=== PATIENT | male | born 1960 | race African-American/Black ===

== ENCOUNTER → 2017-11-11 | Outpatient (CLI) | payer OTHER ==
[2017-11-11] MEDS: GADOBUTROL 7.5 MMOL/7.5 ML VIAL IV (13:23)
== END | disposition home or self-care (01) ==
LOC: MRI 12:31
DX: R22.0 Localized swelling, mass and lump, head (principal)
CPT/HCPCS: 70553; A9585

== ENCOUNTER → 2017-11-22 | Day surgery (SDC) | payer OTHER ==
[~2017-11-22] MED LIST: LIDOCAINE 2%/EPI 1:100,000 20 ML VIAL. IJ
[2017-11-22] MEDS: LIDOCAINE 1%/EPI 1:100,000 20 ML VIAL. INJ (10:50)
== END ==
LOC: SURG 08:27
DX: D17.0 Benign lipomatous neoplasm of skin and subcutaneous tissue of head, face and neck (principal); I10 Essential (primary) hypertension; J44.9 Chronic obstructive pulmonary disease, unspecified; Z90.49 Acquired absence of other specified parts of digestive tract; F32.9 Major depressive disorder, single episode, unspecified; Z86.19 Personal history of other infectious and parasitic diseases
CPT/HCPCS: 21014; 88304; J3490

== ENCOUNTER 2019-04-12 08:14 | Emergency (ER) | payer MEDICAID, OTHER ==
[~2019-04-12] VITALS: Ht 180.3 cm; Wt 63.5 kg
[~2019-04-12 08:14] MED LIST changes: +ALPR0.25 PO; +AMLO10TA8 PO; -LIDOCAINE 2%/EPI 1:100,000 20 ML VIAL. IJ; +LOSA-73 PO; +METO-239 PO; +OMEP20CA10 PO
[2019-04-12 08:26] VITALS: BP 136/73
--- NOTE | 2019-04-12 09:38 | RAD ---
VENOUS LOWER EXTREMITY RIGHT History: Right lower extremity pain. Comparison: None. Discussion: Multiple longitudinal and transverse high resolution real-time images of the venous system of right lower extremity were obtained with color and Doppler sampling. The common femoral, superficial femoral, popliteal and proximal calf veins are all patent and demonstrate normal flow and compressibility. Normal respiratory phasicity and augmentation is present. Impression: 1. No evidence of deep vein thrombosis within the right lower extremity. Electronically signed by: Andrew Elias DO (04/12/2019 9:35 AM) [email or web address]
--- NOTE | 2019-04-12 09:44 | RAD ---
ARTERIAL STUDY LOWER EXT RIGHT Indication: Right lower extremity pain. History of clot. Comparison: None. Procedure: Real-time grayscale, color flow Doppler, and Doppler spectral waveform analysis of the arterial system of the lower extremity is performed. Findings: Monophasic waveform within the right common femoral artery with extensive atheromatous plaque. Patent right deep femoral artery. Occlusion of the proximal right superficial femoral artery with extensive atheromatous plaque. There is reconstitution of the mid superficial femoral artery with tardus parvus waveform. The tardus parvus waveform extends throughout the right distal lower extremity. Distal right superficial femoral artery, popliteal artery, posterior tibial, peroneal, anterior tibial and dorsalis pedis arteries are patent with decreased velocity. IMPRESSION: 1. Right proximal superficial femoral artery occlusion with reconstitution of the mid SFA. 2. Tardus parvus waveform with decreased velocity throughout the mid SFA and distal right lower extremity. 3. Extensive atheromatous plaque within the right common femoral and superficial femoral arteries. FOR INTERNAL CODING PURPOSES Critical result: Findings discussed with RYAN KNIGHT at 04/12/2019 9:41 AM. RESULT CODE: (C) Electronically signed by: Andrew Elias DO (04/12/2019 9:41 AM) [email or web address]
[2019-04-12] MEDS ORDERED: HYDROcodone/APAP 5/325MG 1 TAB TABLET PO ONE (09:45)
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
[2019-04-12] MEDS ORDERED: HYDR-3164 PO (10:08)
== END 2019-04-12 10:54 | disposition home or self-care (01) ==
LOC: ER 08:14
DX: I73.9 Peripheral vascular disease, unspecified (principal); I10 Essential (primary) hypertension; J45.909 Unspecified asthma, uncomplicated; F17.210 Nicotine dependence, cigarettes, uncomplicated
CPT/HCPCS: 93923; 93971; 99284-25

== ENCOUNTER 2019-07-28 11:54 | Emergency (ER) | payer MEDICAID ==
[~2019-07-28] VITALS: Ht 180.3 cm; Wt 65.8 kg
[~2019-07-28 11:54] MED LIST changes: +HYDR-3164 PO; +OMEP-229 PO; -OMEP20CA10 PO
[2019-07-28 12:40] VITALS: BP 134/78
[2019-07-28] MEDS ORDERED: HYDROcodone/APAP 5/325MG 1 TAB TABLET PO ONE (13:30)
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
[2019-07-28 13:55] LABS: BILIRUBIN,URINE NEGATIVE (NEG); CLARITY,URINE CLEAR; COLOR,URINE YELLOW; NITRITE,URINE NEGATIVE (NEG); PH,URINE 6.5; PROTEIN,URINE NEGATIVE (NEG-TRACE)
[2019-07-28 14:23] LABS: BACTERIA,URINE 0 /HPF (0-FEW); RBC,URINE 0 /HPF (0-2); SQUAMOUS EPITHELIAL CELL,UR OCC /LPF
--- NOTE | 2019-07-28 14:30 | RAD ---
LUMBAR SPINE MIN 4V History: Pain, fall Comparison: Lumbar spine MRI October 26, 2013 Findings: 5 views of the lumbar spine are submitted. Lumbar vertebral body stature and AP alignment are submitted. No acute osseous abnormality is identified by radiographs. There is again more advanced degenerative disc disease at L4-5 and L5-S1. There is multilevel lumbar spondylosis. No acute osseous abnormality is identified by radiographs. There is atherosclerotic calcification of the abdominal aorta. Impression: 1. No acute osseous abnormality is identified by radiographs. There is degenerative disc disease greatest L4-5 and L5-S1, also multilevel spondylosis. Electronically signed by: Parvez Ruiz MD (07/28/2019 2:26 PM) [facility]
--- NOTE | 2019-07-28 14:51 | RAD ---
Three-view right foot study Clinical indications: Pain after fall FINDINGS: There is a nondisplaced transverse fracture of the base of the fifth metatarsal bone. No dislocation or lytic process is seen. IMPRESSION: Acute fracture base of fifth metatarsal bone. Electronically signed by: Everett Polk MD (07/28/2019 2:48 PM) [facility]
[2019-07-28] MEDS ORDERED: METH4TAB2 PO (14:55)
[2019-07-28] MEDS ORDERED: HYDR-3164 PO (14:55)
[2019-07-28] MEDS ORDERED: CEPH-264 PO (14:55)
== END 2019-07-28 15:15 | disposition home or self-care (01) ==
LOC: ER 11:54
DX: S92.354A Nondisplaced fracture of fifth metatarsal bone, right foot, initial encounter for closed fracture (principal); S90.31XA Contusion of right foot, initial encounter; N39.0 Urinary tract infection, site not specified; M54.41 Lumbago with sciatica, right side; J45.909 Unspecified asthma, uncomplicated; I10 Essential (primary) hypertension; F17.200 Nicotine dependence, unspecified, uncomplicated; Z90.49 Acquired absence of other specified parts of digestive tract; W10.8XXA Fall (on) (from) other stairs and steps, initial encounter; Y93.89 Activity, other specified; Y92.89 Other specified places as the place of occurrence of the external cause; Y99.8 Other external cause status
CPT/HCPCS: 72110; 73630; 81001; 87086; 99285-25

== ENCOUNTER 2019-08-12 03:44 | Emergency (ER) | payer MEDICAID ==
[~2019-08-12] VITALS: Ht 177.8 cm; Wt 77.1 kg
[~2019-08-12 03:44] MED LIST changes: +CEPH-264 PO; +METH4TAB2 PO; -OMEP-229 PO; +OMEP20CA16 PO
[2019-08-12 04:34] LABS: BASO % 1 % (0-3); EOS # 0.2 x10^3/uL (0.0-0.7); EOS % 2 % (0-3); HEMATOCRIT 37.4 % (39.0-53.0); HEMOGLOBIN 12.6 g/dL (13.0-17.5); LYMPH # 3.2 x10^3/uL (1.0-4.8); LYMPH % 42 % (24-48); MEAN CORPUSCULAR HEMOGLOBIN 32 pg (25-35); MEAN CORPUSCULAR HGB CONC 34 g/dL (31-37); MEAN CORPUSCULAR VOLUME 93 fL (79-100); MONO # 0.7 x10^3/uL (0.0-1.1); MONO % 10 % (0-9); NEUT # 3.5 x10^3/uL (1.8-7.7); NEUT % 46 % (31-73); PLATELET COUNT 196 x10^3/uL (140-400); RED CELL DISTRIBUTION WIDTH 14.8 % (11.5-14.5); WHITE BLOOD COUNT 7.7 x10^3/uL (4.0-11.0)
[2019-08-12 04:43] LABS: CALCIUM 8.8 mg/dL (8.5-10.1); CREATININE 1.1 mg/dL (0.7-1.3); GFR 82.3; POTASSIUM 3.7 mmol/L (3.5-5.1)
[2019-08-12 04:48] LABS: ALBUMIN 3.3 g/dL (3.4-5.0); MAGNESIUM 1.8 mg/dL (1.8-2.4); TOTAL BILIRUBIN 0.7 mg/dL (0.2-1.0); TOTAL PROTEIN 6.7 g/dL (6.4-8.2)
[2019-08-12] MEDS ORDERED: methylPREDNISolone SOD SUCC PF 125 MG/2 ML VIAL. IV ONE (05:00)
[2019-08-12] MEDS ORDERED: IPRATRPIUM/ALBUTEROL 0.5/2.5MG 3 ML NEBU. NEB ONE (05:00)
[2019-08-12 05:12] VITALS: BP 119/68
[2019-08-12] MEDS ORDERED: CEFD300C PO (05:35)
[2019-08-12] MEDS ORDERED: ALBU2.5V8 IH (05:35)
[2019-08-12] MEDS ORDERED: PRED20TA PO (05:35)
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
--- NOTE | 2019-08-12 07:00 | RAD ---
CHEST AP ONLY Clinical History: Dyspnea and cough Technique: AP view of the chest was obtained at 08/12/2019 4:01 AM. Comparison: None. Findings: The cardiomediastinal silhouette is normal. The pulmonary vasculature is normal. There is patchy opacity in the lung bases including vague curly B lines on the right. Impression: Mild basal infiltrates could be CHF or atypical pneumonia. Electronically signed by: Konrad Austin III, MD (08/12/2019 6:57 AM) [email or web address]
--- NOTE | 2019-08-14 06:49 | EKG ---
[facility] [address] [place] [address] Test Date: 2019-08-12 Test Time: 05:18:38 Pat Name: CANDY CERVANTES Department: Room: Gender: M Truant Officer: : 1960 Requested By: SAIDA GAN Order Number: [id number] Reading MD: Measurements Intervals [place] Rate: 63 P: 90 WA: 218 QRS: -70 QRSD: 94 T: 42 QT: 398 QTc: 410 Interpretive Statements SINUS RHYTHM ABNORMAL LEFT AXIS DEVIATION R-S TRANSITION ZONE IN V LEADS DISPLACED TO THE RIGHT LOW LIMB LEAD VOLTAGE LEFT ANTERIOR FASCICULAR BLOCK ABNORMAL ECG RI6.01 No previous ECG available for comparison
== END 2019-08-12 06:28 | disposition home or self-care (01) ==
LOC: ER 03:44
DX: J20.9 Acute bronchitis, unspecified (principal); J45.909 Unspecified asthma, uncomplicated; M19.90 Unspecified osteoarthritis, unspecified site; I10 Essential (primary) hypertension
CPT/HCPCS: 36415; 71045; 80053; 83735; 83880; 84484; 85025; 93005; 94640; 96374; 99285; J2930; J7620

== ENCOUNTER 2020-02-14 11:38 | Emergency (ER) | payer MEDICAID ==
[~2020-02-14 11:38] MED LIST changes: +ALBU2.5V8 IH; +CEFD300C PO; +PRED20TA PO
[2020-02-14] MEDS ORDERED: CYCL10TA2 PO (16:33)
[2020-02-14] MEDS ORDERED: NAPR-514 PO (16:33)
== END 2020-02-14 12:33 | disposition left against medical advice (07) ==
LOC: ER 11:38
DX: M54.5 Low back pain (principal); Z53.21 Procedure and treatment not carried out due to patient leaving prior to being seen by health care provider

== ENCOUNTER 2020-02-14 14:02 | Emergency (ER) | payer MEDICAID ==
[~2020-02-14] VITALS: Ht 180.3 cm; Wt 65.0 kg
[2020-02-14 14:14] VITALS: BP 168/81
[2020-02-14] MEDS ORDERED: ORPHENADRINE CITRATE 60 MG/2 ML VIAL. IV ONE (15:00)
[2020-02-14] MEDS ORDERED: KETOROLAC 60 MG/2 ML VIAL. IM ONE (15:00)
--- NOTE | 2020-02-14 15:38 | RAD ---
LUMBAR SPINE 2-3V History: Fall 3 days ago Comparison: July 28, 2019 Findings: 3 views of the lumbar spine are submitted. Lumbar vertebral body stature and AP alignment are maintained, unchanged kidney interval. There is again advanced degenerative disc disease L4-5 and L5-S1, to lesser degree L3-4 and L1-L2. There is facet degenerative change greater inferiorly of the lumbar spine. No convincing acute radiographic abnormality is identified. There is multilevel spondylosis. Impression: 1. No convincing acute osseous abnormality is identified by radiographs. 2. There is again degenerative disc disease greatest at L4-5 and L5-S1. Electronically signed by: Parvez Ruiz MD (02/14/2020 3:35 PM) [facility]
--- NOTE | 2020-02-14 15:38 | RAD ---
Left knee 3 views. HISTORY: Fall 3 days ago, history of patellar fracture 3 views were taken of the left knee. There is mild soft tissue swelling. An acute fracture is not identified. There is no joint effusion. IMPRESSION: 1. No acute fracture noted in the left knee. Electronically signed by: Freddie Vieira MD (02/14/2020 3:35 PM) [facility]
[2020-02-14] MEDS ORDERED: CYCL10TA2 PO (16:33)
[2020-02-14] MEDS ORDERED: NAPR-514 PO (16:33)
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
[2020-02-14] MEDS ORDERED: ORPHENADRINE CITRATE 60 MG/2 ML VIAL. IM ONE (16:45)
== END 2020-02-14 16:50 | disposition home or self-care (01) ==
LOC: ER 14:02
DX: M54.41 Lumbago with sciatica, right side (principal); M25.562 Pain in left knee; M19.90 Unspecified osteoarthritis, unspecified site; F32.9 Major depressive disorder, single episode, unspecified; I25.10 Atherosclerotic heart disease of native coronary artery without angina pectoris; E11.9 Type 2 diabetes mellitus without complications; F17.200 Nicotine dependence, unspecified, uncomplicated; Z90.49 Acquired absence of other specified parts of digestive tract; Z98.890 Other specified postprocedural states
CPT/HCPCS: 72100; 73562; 96372; 99284; J1885; J2360

== ENCOUNTER 2021-05-07 09:45 | Emergency (ER) | payer MEDICAID ==
[~2021-05-07] VITALS: Ht 180.3 cm; Wt 67.8 kg
[~2021-05-07 09:45] MED LIST changes: +AMLO-187 PO; -AMLO10TA8 PO; +CYCL10TA2 PO; +NAPR-514 PO
[2021-05-07 10:44] LABS: BASO # 0.1 x10^3/uL (0.0-0.2); BASO % 1 % (0-3); EOS # 0.1 x10^3/uL (0.0-0.7); EOS % 1 % (0-3); HEMATOCRIT 40.9 % (39.0-53.0); HEMOGLOBIN 13.9 g/dL (13.0-17.5); LYMPH # 2.4 x10^3/uL (1.0-4.8); LYMPH % 29 % (24-48); MEAN CORPUSCULAR HEMOGLOBIN 31 pg (25-35); MEAN CORPUSCULAR HGB CONC 34 g/dL (31-37); MEAN CORPUSCULAR VOLUME 92 fL (79-100); MONO # 1.1 x10^3/uL (0.0-1.1); MONO % 13 % (0-9); NEUT # 4.8 x10^3/uL (1.8-7.7); NEUT % 57 % (31-73); PLATELET COUNT 181 x10^3/uL (140-400); RED BLOOD COUNT 4.46 x10^6/uL (4.30-5.70); RED CELL DISTRIBUTION WIDTH 15.4 % (11.5-14.5); WHITE BLOOD COUNT 8.4 x10^3/uL (4.0-11.0)
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
[2021-05-07] MEDS ORDERED: IOHEXOL 300 MG/ML 100ML VIAL. IV ONE (11:00)
[2021-05-07] MEDS ORDERED: CONTRAST GIVEN. MC PRN (11:00)
[2021-05-07 11:03] LABS: CALCIUM 8.6 mg/dL (8.5-10.1); CREATININE 1.1 mg/dL (0.7-1.3); GFR 81.8; POTASSIUM 4.6 mmol/L (3.5-5.1)
[2021-05-07 11:05] LABS: BILIRUBIN,URINE NEGATIVE (NEG); CLARITY,URINE CLEAR; COLOR,URINE YELLOW; NITRITE,URINE NEGATIVE (NEG); PH,URINE 6.5 (<5.0-8.0); PROTEIN,URINE NEGATIVE (NEG-TRACE)
[2021-05-07 11:19] LABS: BACTERIA,URINE 0 /HPF (0-FEW); RBC,URINE 0 /HPF (0-2)
--- NOTE | 2021-05-07 12:22 | RAD ---
EXAMINATION: CT abdomen and pelvis with IV contrast. INDICATION:61 years, Male, lymphadenopathy. TECHNIQUE: Axial CT images of the abdomen and pelvis were obtained. Coronal and sagittal reformatted performed. COMPARISON: 12/13/2009. Exposure: One or more of the following individualized dose reduction techniques were utilized for thi s examination: 1. Automated exposure control 2. Adjustment of the mA and/or kV according to patient size 3. Use of iterative reconstruction technique. FINDINGS: LOWER CHEST: Trace right pleural effusion. Minimal bibasilar subsegmental atelectasis. ABDOMEN/PELVIS: Liver, pancreas, biliary ducts and right thyroid gland are unremarkable. Cholecystectomy. Coarse calc ifications in subcapsular spleen, unchanged. There is a 2.4 cm left adrenal nodule, stable to slightl y decreasing in size since 2009, most likely benign adenoma. No hydronephrosis or nephrolithiasis in either kidney. Subcentimeter hypodensity in the right kidney, too small to characterize. No bowel obstruction or wall thickening. Moderate amount of stool throughout the colon. Appendix is n ormal. Postsurgical changes of small bowel resection. Moderate aortoiliac atherosclerotic calcificati ons. No pneumoperitoneum or ascites. Multiple mildly enlarged left paraortic, right common and hydroponics grower al iliac lymph nodes. The largest left paraortic lymph node measures 1.3 cm in short axis. The larges t right pelvic lymph node measures 1.0 cm. Enlarged bilateral inguinal lymph nodes, the largest in th e left side measures 2.0 cm in short axis. Urinary bladder and prostate are unremarkable. MUSCULOSKELETAL: There is a 2.5 cm hypodense lesion with peripheral enhancement seen in the subcutaneous tissue of the left groin region, associated with extensive adjacent fat stranding. Multilevel degenerative changes in the spine, worst at L5-S1. IMPRESSION: 1. A 2.5 cm hypodense lesion with peripheral enhancement seen within the subcutaneous tissue of the l eft groin region, associated with extensive adjacent fat stranding. Differential includes abscess pippa tisha necrotic lymphadenopathy. Clinical correlation is advised and recommend further evaluation with u ltrasound-guided tissue sampling. 2. Multiple enlarged retroperitoneal, right pelvic and bilateral inguinal lymph nodes, etiology inclu carolyn reactive process versus metastasis of unknown primary. 3. Other chronic/incidental finding, as described above. Electronically signed by: Jose G Carlisle MD (05/07/2021 12:19 PM) [id number]
[2021-05-07 13:39] LABS: ALBUMIN 3.3 g/dL (3.4-5.0); DIRECT BILIRUBIN 0.1 mg/dL (0.0-0.2); TOTAL BILIRUBIN 0.4 mg/dL (0.2-1.0); TOTAL PROTEIN 7.1 g/dL (6.4-8.2)
--- NOTE | 2021-05-07 14:05 | RAD ---
STUDY: CT chest without contrast INDICATION: Pleural effusion. COMPARISON: Correlation is made to the same day CT abdomen/pelvis. TECHNIQUE: Helical CT imaging of the chest performed without the use of intravenous contrast. Sagitta l and coronal reformats were obtained. One or more of the following individualized dose reduction techniques were utilized for this examinat ion: 1. Automated exposure control 2. Adjustment of the mA and/or kV according to patient size 3. Use of iterative reconstruction technique. FINDINGS: Limited study without the use of intravenous contrast. Lungs: Emphysema. Subpleural groundglass densities at the inferior right lower lobe. There is a compo nent of mild volume loss at the lung bases. Trace amount of pleural fluid on the right. Mild pleural nodularity at a few locations best seen laterally at the right lower lobe on image 54 series 3 measur ing 1.9 cm AP by 0.7 cm transverse on this image. Flat nodular focus abutting the right hemidiaphragm on image 31 series 5 measuring 0.9 cm transverse. Tiny nodularity along the right minor fissure, johanne ge 44 series 3. No large nodule or mass. There is some debris within the trachea and bronchus interme dius. No central airway opacification. Vasculature: Scattered calcific atherosclerosis with coronary artery involvement. Nonaneurysmal aorta . Upper limits of normal main pulmonary artery caliber measuring just under 3 cm. Mediastinum/gonzalez: Individual discrimination of lymph nodes is made difficult without the use of contr ast. Mildly enlarged pretracheal lymph node on image 33 series 2 measuring 1 cm AP. There is the sugg estion of a 1.4 cm short axis subcarinal lymph node on image 39 series 2. No significant pericardial fluid. Neck/axilla/chest wall: Several pathologically enlarged left axillary/subpectoral lymph nodes the lar gest of which is on image 18 series 2 measuring 1.8 cm transverse by 2.2 cm AP. The largest right axi llary/subpectoral lymph node is seen beneath the pectoralis major on image 11 series 2 measuring 1.6 x 2.2 cm. It is difficult to delineate lymph nodes at the lower neck. Gynecomastia. Bones: No destructive osseous lesion scattered degenerative changes. There appears to be a component of central canal narrowing at T11-T12 mostly related to a disc bulge but not well characterized. Upper abdomen: Better evaluated on the same day CT abdomen/pelvis performed with contrast. IMPRESSION: 1. Bilateral axillary and subpectoral lymphadenopathy. There are few mildly enlarged mediastinal lym ph nodes as well. Pleural nodularity best seen at the right lower lung and trace pleural fluid on the right. No lung mass or large nodule to indicate a lung primary. Considerations includes metastatic d isease from a still uncertain primary or potentially lymphoma. 2. Small amount of debris within the trachea and bronchus intermedius. There is a component of atele ctasis at the lower lungs but mild aspiration is possible. 3. Emphysema and additional chronic observations described above. Electronically signed by: DEEPIKA LYLE MD (05/07/2021 2:03 PM) [facility]
[2021-05-07 14:59] VITALS: BP 170/95
== END 2021-05-07 15:01 | disposition home or self-care (01) ==
LOC: ER 09:45
DX: R59.0 Localized enlarged lymph nodes (principal); I10 Essential (primary) hypertension; F17.200 Nicotine dependence, unspecified, uncomplicated
CPT/HCPCS: 36415; 71250; 74177; 80048; 80076; 81001; 83615; 85025; 87086; 87491; 87591; 99285; Q9967

== ENCOUNTER → 2021-05-16 | Outpatient (CLI) | payer MEDICAID ==
[2021-05-07 14:59] VITALS: BP 170/95
[~2021-05-16] MED LIST changes: +GABA300C18 PO; +HYDR-2759 PO; +OMEP40CA7 PO
[2021-05-16 14:04] LABS: BASO # 0.1 x10^3/uL (0.0-0.2); BASO % 1 % (0-3); EOS # 0.1 x10^3/uL (0.0-0.7); EOS % 2 % (0-3); HEMATOCRIT 41.2 % (39.0-53.0); HEMOGLOBIN 13.7 g/dL (13.0-17.5); LYMPH # 2.7 x10^3/uL (1.0-4.8); LYMPH % 35 % (24-48); MEAN CORPUSCULAR HEMOGLOBIN 31 pg (25-35); MEAN CORPUSCULAR HGB CONC 33 g/dL (31-37); MEAN CORPUSCULAR VOLUME 92 fL (79-100); MONO # 0.7 x10^3/uL (0.0-1.1); MONO % 9 % (0-9); NEUT # 4.2 x10^3/uL (1.8-7.7); NEUT % 54 % (31-73); PLATELET COUNT 281 x10^3/uL (140-400); RED BLOOD COUNT 4.48 x10^6/uL (4.30-5.70); RED CELL DISTRIBUTION WIDTH 14.7 % (11.5-14.5); WHITE BLOOD COUNT 7.8 x10^3/uL (4.0-11.0)
[2021-05-17 15:11] LABS: KAPPA FREE 66.8 mg/L (3.3-19.4); LAMBDA FREE 37.2 mg/L (5.7-26.3)
[2021-05-19 16:20] LABS: ALBUM 3.4 g/dL (2.9-4.4); ALPHA 1 0.3 g/dL (0.0-0.4); ALPHA 2 1.1 g/dL (0.4-1.0); BETA 0.9 g/dL (0.7-1.3); GAMMA 1.6 g/dL (0.4-1.8); PROTEIN TOTAL 7.3 g/dL (6.0-8.5); SPEP AG RATIO 0.9 (0.7-1.7)
== END ==
LOC: ONCLAB 13:44
PROVIDERS: ATTEND Internal Medicine Hematology & Oncology
DX: R59.9 Enlarged lymph nodes, unspecified (principal)
CPT/HCPCS: 36415; 83520; 83615; 84165; 85025; 86703; 86704; 86706; 87340

== ENCOUNTER 2021-05-26 07:43 | Day surgery (SDC) | payer MEDICAID ==
[~2021-05-26] VITALS: Ht 180.3 cm; Wt 68.0 kg
[~2021-05-26 07:43] MED LIST changes: +BUPIVACAINE-EPI 0.5%-1:200000 MPF 30 ML VIAL. ONE; -HYDR-2759 PO; +HYDROmorphone 2 MG/ML VIAL IVP PRN; +IV RINGERS,LACTATED 1000ML 1,000 ML IV SCH; +MORPHINE SULFATE 2 MG/ML INJ. IVP PRN; +PROCHLORPERAZINE 10 MG/2 ML VIAL. IVP PRN; +fentaNYL PF VIAL 100 MCG/2 ML VIAL IVP PRN
[2021-05-26] MEDS ORDERED: ceFAZolin SODIUM IV Push 1 GM VIAL. IVP PRN (08:00)
[2021-05-26 08:15] VITALS: BP 159/84
[2021-05-26] MEDS ORDERED: fentaNYL PF VIAL 100 MCG/2 ML VIAL ONE (08:27)
[2021-05-26] MEDS ORDERED: DEXAMETHASONE SOD PHOS 20 MG/5 ML VIAL. ONE (08:27)
[2021-05-26] MEDS ORDERED: PROPOFOL 10 MG/ML (20ML) VIAL. IV ONE ×2 (08:27→09:27)
[2021-05-26] MEDS ORDERED: ONDANSETRON PF 4 MG/2 ML VIAL. ONE (08:27)
[2021-05-26] MEDS ORDERED: MIDAZOLAM HCL/PF 2 MG/2 ML VIAL. ONE (08:27)
[2021-05-26] MEDS ORDERED: FAMOTIDINE 20 MG/2 ML VIAL ONE (08:27)
[2021-05-26] MEDS ORDERED: BUPIVACAINE-EPI 0.5%-1:200000 MPF 30 ML VIAL. INJ ONE (09:29)
--- NOTE | 2021-05-26 09:58 | PDOC4 ---
Operative Note Operative Note Operative Note: Preoperative Diagnosis: Left inguinal lymphadenopathy Postoperative Diagnosis: Same Procedure: Left inguinal lymph node biopsy Surgeon: Florian Pararescue Craftsman: Ravi Wang [id number] Anesthesia: General EBL: 5 mL Specimen: Left inguinal lymph node to pathology Drains: None Complications: None Indication: The patient is a 61-year-old male who was referred with significant lymphadenopathy particularly in the left groin. The plan is to proceed with a lymph node biopsy to allow for definitive diagnosis. The risks of surgery were discussed which include bleeding, infection, pain, swelling, anesthetic risk, potential need for additional surgery procedure. He understands and would like to proceed. Description: The patient was taken to the operating room and placed supine on the operating table. General anesthesia was performed. The left groin was shaved and prepped with ChloraPrep and draped in a standard surgical manner. An i ncision was made directly overlying a sizable palpable inguinal lymph node. Cautery dissection was carried down into the subcutaneous tissues. The lymph node was readily mobilized with cautery from the surrounding subcutaneous structures. The lymph node was fully excised and sent fresh to pathology for evaluation. Hemostasis was achieved with cautery. No other abnormalities were id entified apart from remaining sites of adenopathy. The subcutaneous tissue was closed with 3-0 Vicryl. The skin was closed with 4-0 Monocryl and infiltrated with half percent Marcaine with epinephrine. Steri-Strips and a sterile dressing were applied. The patient tolerated the procedure well and was sent to the recovery room in stable condition. At the end of the case all counts were correct. HEAVEN ENRIQUEZ MD May 26, 2021 09:58
[2021-05-26] MEDS ORDERED: HYDR-2759 PO (10:01)
--- NOTE | 2021-05-26 10:02 | DISCH ---
DISCHARGE INSTRUCTIONS Condition on Discharge Condition on Discharge: Stable Activity After Discharge Activity Instructions for Disc: Resume previous activity Driving Instructions after Dis: Other, see below (no driving while taking pain meds) Wound Incision Care Wound/Incision Care: Other, see below (keep dressing clean and dry X 72 hours, may then remove and shower) Follow-Up Follow up with: Dr Enriquez in office in 1-2 weeks, call for appointment [phone] HEAVEN ENRIQUEZ MD May 26, 2021 10:02
[2021-05-26] MEDS ORDERED: HYDROcodone/APAP 5/325MG 1 TAB TABLET PO ONE (10:15)
[2021-05-26 10:39] VITALS: BP 129/69
--- NOTE | 2021-05-30 10:57 | PATHOLOGY ---
[facility] Accession Number: [id number] . 01 Material submitted: . lymph node - LEFT INGUINAL LYMPH NODE FS. Modifiers: left . 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 SEE COMMENT. (JPM:mm; 05/28/2021) [facility] 05/29/2021 1444 Local . 02 Comment: Sections of the left inguinal lymph node biopsy reveal three lymph nodes with focal attached perinodal soft tissues. The two largest lymph nodes show infarction with perinodal fibrosis and chronic inflammation. There is effacement of the yousuf architecture of the smallest lymph node. Sections of this lymph node reveal a proliferation of atypical large lymphoid cells having a somewhat nodular architecture within a sclerotic background. The atypical large lymphoid cells have modest amounts of pale cytoplasm, and possess rounded to ovoid somewhat vesicular nuclei containing one or more nucleoli. There are scattered admixed small lymphocytes having rounded to slightly irregular nuclei. There are mitotic figures present. There is a small focus of yousuf infarction. There are focal nodular aggregates of atypical large lymphoid cells within perinodal soft tissues with a focus of possible angioinvasion. . A portion of the smallest lymph node submitted for flow cytometric analysis has a viability of 68.5%. Lymphocytes comprise 93.4% of total cells. T-cells comprise 94% of lymphoid cells and show a CD4/CD8 ratio of 10.0. T-cells show no antigen aberrancy. NK-cells comprise 2% of lymphoid cells. Mature B-cells comprise 2% of lymphoid cells and are insufficient in number to evaluate for clonality. This hypocellular specimen with decreased viability is suboptimal for lymphoma detection (See flow report [id number]). . To confirm flow cytometric findings and characterize the target cells in a tissue architectural context, a panel of immunoperoxidase stains is obtained on A1 and yields the following results: . AE1/AE3: Atypical large cells negative CD20: Atypical large cells positive PAX-5: Atypical large cells positive CD3: Atypical large cells negative; small lymphocytes positive CD5: Atypical large cells negative; small lymphocytes positive CD10: Atypical large cells negative BCL-2: Atypical large cells negative BCL-6: Small population of atypical large cells positive MUM1: Subpopulation of atypical large cells positive Cyclin D1: Atypical large cells negative Ki-67: Atypical large cells show proliferation index of approximately 70-80%. CD30: Atypical large cells negative ALK-1: Atypical large cells negative . The morphologic and immunophenotypic findings are supportive of the diagnosis of involvement by Large B-cell Lymphoma with extensive yousuf infarction. We favor a Large B-cell Lymphoma, non germinal cell type. . The case is also examined by Dr. Андрей Quiñonez, who concurs with the diagnosis. The results are reported to Dr. Du at 2:45 PM on 05/29/21. . Immunoperoxidase stains performed (A1): AE1/AE3, CD20, PAX-5, CD3, CD5, CD10, BCL-2, BCL-6, MUM1, Cyclin D1, Ki-67, CD30 and ALK-1 . (JPM:angeline; 05/28/2021) . 02 Electronically signed: . Harrison Song MD, Pathologist NPI- [id number] . 02 Gross description: . The specimen is received fresh and is designated "left inguinal lymph node". This consists of an enlarged, pink-bingham lymph node which measures up to 4.4 x 2.5 x 1.8 cm in greatest dimension. The specimen is bisected. Sectioning reveals what appears to be three adjacent lymph nodes. The largest measures approximately 3 cm in greatest dimension. The two smaller nodes measure 1.1 and 1.4 cm in greatest dimension. The smallest has a bingham, glistening cut surface. The next largest lymph node appears nearly entirely bingham-white and necrotic. The largest lymph node also shows a bnigham-white largely necrotic cut surface. There is focal pink-bingham tissue at one end of the largest lymph node. Two touch preparations are prepared from the smallest lymph node and submitted for H and E staining. A customer service representative portion from this same small lymph node is submitted to [employer] in [facility] for flow cytometric analysis. [employer] Supervisor sections from the two smaller nodes are submitted as A1. [employer] Supervisor sections from the largest lymph node are submitted as A2-A5. (JPM/hernando; 05/26/2021) [facility] 05/26/2021 1600 Local . 02 Pathologist provided ICD-10: C85.15, I89.8 . 02 CPT . 574083, L42262, F56196 Specimen Comment: A courtesy copy of this report has been sent to [phone] Specimen Comment: Report sent to Specimen Comment: A duplicate report has been generated due to demographic updates. Performed at: 01 [facility] [address] [facility] [address], [place] [id number] MD Bairon Lee MD Phone: [phone] Performed at: 02 [facility] [address] [place], [place] [id number] MD Harrison Song MD Phone: [phone]
== END 2021-05-26 11:08 | disposition home or self-care (01) ==
LOC: SURG 07:43
PROVIDERS: ATTEND Surgery
DX: R59.0 Localized enlarged lymph nodes (principal); R59.1 Generalized enlarged lymph nodes; C85.15 Unspecified B-cell lymphoma, lymph nodes of inguinal region and lower limb; I10 Essential (primary) hypertension; J44.9 Chronic obstructive pulmonary disease, unspecified; K21.9 Gastro-esophageal reflux disease without esophagitis; M19.90 Unspecified osteoarthritis, unspecified site; F41.9 Anxiety disorder, unspecified; F32.9 Major depressive disorder, single episode, unspecified; F17.210 Nicotine dependence, cigarettes, uncomplicated; Z90.49 Acquired absence of other specified parts of digestive tract; Z98.890 Other specified postprocedural states; Z79.899 Other long term (current) drug therapy; Z72.89 Other problems related to lifestyle
CPT/HCPCS: 38531; 88184; 88185; 88307; 88341; 88342; A4364; A4930; J0690; J1100; J2250; J2405; J2704; J3010; J3490

== ENCOUNTER → 2021-06-04 | Outpatient (CLI) | payer MEDICAID ==
[2021-05-26 10:39] VITALS: BP 129/69
[~2021-06-04] MED LIST changes: -BUPIVACAINE-EPI 0.5%-1:200000 MPF 30 ML VIAL. ONE; +CYCL10TA19 PO; -CYCL10TA2 PO; +HYDR-2759 PO; -HYDROmorphone 2 MG/ML VIAL IVP PRN; -IV RINGERS,LACTATED 1000ML 1,000 ML IV SCH; -MORPHINE SULFATE 2 MG/ML INJ. IVP PRN; -PROCHLORPERAZINE 10 MG/2 ML VIAL. IVP PRN; -fentaNYL PF VIAL 100 MCG/2 ML VIAL IVP PRN
[2021-06-04 11:18] LABS: CALCIUM 8.5 mg/dL (8.5-10.1); CREATININE 1.2 mg/dL (0.7-1.3); POTASSIUM 4.7 mmol/L (3.5-5.1)
[2021-06-04 11:22] LABS: ALBUMIN 3.2 g/dL (3.4-5.0); ALBUMIN/GLOBULIN RATIO 0.7 (1.0-1.7); TOTAL BILIRUBIN 0.6 mg/dL (0.2-1.0); TOTAL PROTEIN 7.9 g/dL (6.4-8.2)
[2021-06-04 11:24] LABS: BASO # 0.1 x10^3/uL (0.0-0.2); BASO % 1 % (0-3); EOS # 0.2 x10^3/uL (0.0-0.7); EOS % 3 % (0-3); HEMATOCRIT 41.5 % (39.0-53.0); HEMOGLOBIN 13.7 g/dL (13.0-17.5); LYMPH # 2.1 x10^3/uL (1.0-4.8); LYMPH % 33 % (24-48); MEAN CORPUSCULAR HEMOGLOBIN 30 pg (25-35); MEAN CORPUSCULAR HGB CONC 33 g/dL (31-37); MEAN CORPUSCULAR VOLUME 92 fL (79-100); MONO # 0.8 x10^3/uL (0.0-1.1); MONO % 13 % (0-9); NEUT # 3.2 x10^3/uL (1.8-7.7); NEUT % 49 % (31-73); PLATELET COUNT 216 x10^3/uL (140-400); RED BLOOD COUNT 4.52 x10^6/uL (4.30-5.70); RED CELL DISTRIBUTION WIDTH 15.2 % (11.5-14.5); WHITE BLOOD COUNT 6.4 x10^3/uL (4.0-11.0)
--- NOTE | 2021-06-06 08:59 | CARD ---
MR#: [id number] Date of Study: 06/04/2021 Ordering Physician: BREANNE DEY, Referring Physician: BREANNE DEY, Tech: Raisa Nava [facility] APPROVED REPORT EXAM: Two-dimensional and M-mode echocardiogram with Doppler and color Doppler. Other Information Quality : GoodHR: 57bpm Rhythm : NSR INDICATION RISK FACTORS Hypertension Smoking 2D DIMENSIONS RVDd4.6 (2.9-3.5cm)Left Atrium(2D)3.4 (1.6-4.0cm) IVSd1.3 (0.7-1.1cm)Aortic Root(2D)3.9 (2.0-3.7cm) LVDd4.4 (3.9-5.9cm)LVOT Diameter2.4 (1.8-2.4cm) PWd1.3 (0.7-1.1cm)LVDs2.7 (2.5-4.0cm) FS (%) 38.2 %SV61.7 ml LVEF(%)68.6 (>50%) Aortic Valve AoV Peak Avinash.116.9cm/sAoV VTI28.2cm AO Peak GR.5.5mmHgLVOT Peak Avinash.88.9cm/s AO Mean GR.3mmHgAVA (VMAX)3.40cm2 Mitral Valve MV E Zwkifesz20.9cm/sMV DECEL [id number] MV A Lomoxbkl39.3cm/sE/A Ratio1.2 Pulmonary Valve PV Peak Ofmolfab41.9cm/s Tricuspid Valve TR P. Uixcssxg362mm/sTR Peak Gr.33mmHg LEFT VENTRICLE The left ventricle is normal size. There is mild concentric left ventricular hypertrophy. The left ve ntricular systolic function is normal and the ejection fraction is within normal range. Estimated eje ction fraction 55-60%. There is normal LV segmental wall motion. The left ventricular diastolic funct ion and filling is normal for age. RIGHT VENTRICLE The right ventricle is normal size. There is normal right ventricular wall thickness. The right ventr icular systolic function is normal. ATRIA The left atrium is mildly dilated. The right atrium is mildly dilated. The interatrial septum is inta ct with no evidence for an atrial septal defect or patent foramen ovale as noted on 2-D or Doppler im aging. AORTIC VALVE The aortic valve is normal in structure and function. Doppler and Color Flow revealed trace aortic re gurgitation. There is no significant aortic valvular stenosis. MITRAL VALVE The mitral valve is normal in structure and function. There is no evidence of mitral valve prolapse. There is no mitral valve stenosis. Doppler and Color-flow revealed mild mitral regurgitation. TRICUSPID VALVE The tricuspid valve is normal in structure and function. Doppler and Color Flow revealed mild tricusp id regurgitation. Estimated PAP 36 mmHg. There is no tricuspid valve stenosis. PULMONIC VALVE Doppler and Color Flow revealed trace pulmonic valvular regurgitation. There is no pulmonic valvular stenosis. GREAT VESSELS The aortic root is mildly enlarged. The IVC is normal in size and collapses >50% with inspiration. PERICARDIAL EFFUSION There is no evidence of significant pericardial effusion. Critical Notification Critical Value: No <Conclusion> The left ventricular systolic function is normal and the ejection fraction is within normal range. E stimated ejection fraction 55-60%. There is normal LV segmental wall motion. The aortic root is mildly enlarged at 3.9 cm. Signed by : Jose Knutson, Electronically Approved : 06/06/2021 08:58:59
== END ==
LOC: ONCLAB 10:22
PROVIDERS: ATTEND Internal Medicine Hematology & Oncology
DX: C83.30 Diffuse large B-cell lymphoma, unspecified site (principal); I10 Essential (primary) hypertension; R59.9 Enlarged lymph nodes, unspecified
CPT/HCPCS: 36415; 80053; 84550; 85025; 93306

== ENCOUNTER → 2021-06-04 | Outpatient (CLI) | payer MEDICAID ==
[2021-05-26 10:39] VITALS: BP 129/69
--- NOTE | 2021-06-09 10:53 | CARD ---
MR#: [id number] Date of Study: 06/04/2021 Ordering Physician: BREANNE DEY, Referring Physician: BREANNE DEY, Tech: Raisa Nava [facility] APPROVED REPORT EXAM: Two-dimensional and M-mode echocardiogram with Doppler and color Doppler. Other Information Quality : Good HR: 57bpm Rhythm : NSR INDICATION RISK FACTORS Hypertension Smoking 2D DIMENSIONS RVDd 4.6 (2.9-3.5cm) Left Atrium(2D) 3.4 (1.6-4.0cm) IVSd 1.3 (0.7-1.1cm) Aortic Root(2D) 3.9 (2.0-3.7cm) LVDd 4.4 (3.9-5.9cm) LVOT Diameter 2.4 (1.8-2.4cm) PWd 1.3 (0.7-1.1cm) LVDs 2.7 (2.5-4.0cm) FS (%) 38.2 % SV 61.7 ml LVEF(%) 68.6 (>50%) Aortic Valve AoV Peak Avinash. 116.9cm/s AoV VTI 28.2cm AO Peak GR. 5.5mmHg LVOT Peak Avinash. 88.9cm/s AO Mean GR. 3mmHg DEANGELO (VMAX) 3.40cm2 Mitral Valve MV E Velocity 59.9cm/s MV DECEL TIME 222ms MV A Velocity 48.3cm/s E/A Ratio 1.2 Pulmonary Valve PV Peak Velocity 74.9cm/s Tricuspid Valve TR P. Velocity 288cm/s TR Peak Gr. 33mmHg LEFT VENTRICLE The left ventricle is normal size. There is mild concentric left ventricular hypertrophy. The left ventricular systolic function is normal and the ejection fraction is within normal range. Estimated ejection fraction 55-60%. There is normal LV segmental wall motion. The left ventricular diastolic function and filling is normal for age. RIGHT VENTRICLE The right ventricle is normal size. There is normal right ventricular wall thickness. The right ventricular systolic function is normal. ATRIA The left atrium is mildly dilated. The right atrium is mildly dilated. The interatrial septum is intact with no evidence for an atrial septal defect or patent foramen ovale as noted on 2-D or Doppler imaging. AORTIC VALVE The aortic valve is normal in structure and function. Doppler and Color Flow revealed trace aortic regurgitation. There is no significant aortic valvular stenosis. MITRAL VALVE The mitral valve is normal in structure and function. There is no evidence of mitral valve prolapse. There is no mitral valve stenosis. Doppler and Color-flow revealed mild mitral regurgitation. TRICUSPID VALVE The tricuspid valve is normal in structure and function. Doppler and Color Flow revealed mild tricuspid regurgitation. Estimated PAP 36 mmHg. There is no tricuspid valve stenosis. PULMONIC VALVE Doppler and Color Flow revealed trace pulmonic valvular regurgitation. There is no pulmonic valvular stenosis. GREAT VESSELS The aortic root is mildly enlarged. The IVC is normal in size and collapses >50% with inspiration. PERICARDIAL EFFUSION There is no evidence of significant pericardial effusion. Critical Notification Critical Value: No <Conclusion> The left ventricular systolic function is normal and the ejection fraction is within normal range. Estimated ejection fraction 55-60%. There is normal LV segmental wall motion. The aortic root is mildly enlarged at 3.9 cm. Signed by : Kaitlynn Blackman, Electronically Approved : 06/06/2021 08:58:59 DICTATED and SIGNED BY: KAITLYNN BLACKMAN MD DATE: 06/04/21 1239 MTDD
== END ==
LOC: ECHO 11:47
PROVIDERS: ATTEND Internal Medicine Hematology & Oncology
DX: I08.1 Rheumatic disorders of both mitral and tricuspid valves (principal); I77.819 Aortic ectasia, unspecified site; I10 Essential (primary) hypertension
CPT/HCPCS: 93306

== ENCOUNTER 2021-06-11 08:14 | Outpatient (CLI) | payer MEDICAID ==
[2021-06-11] VITALS (7 sets, daily range): BP systolic 107–153; BP diastolic 62–80
[~2021-06-11] VITALS: Ht 180.3 cm; Wt 68.2 kg
[2021-06-11 09:08] LABS: BASO # 0.1 x10^3/uL (0.0-0.2); BASO % 1 % (0-3); EOS # 0.1 x10^3/uL (0.0-0.7); EOS % 1 % (0-3); HEMATOCRIT 40.4 % (39.0-53.0); HEMOGLOBIN 13.2 g/dL (13.0-17.5); LYMPH # 2.4 x10^3/uL (1.0-4.8); LYMPH % 28 % (24-48); MEAN CORPUSCULAR HEMOGLOBIN 30 pg (25-35); MEAN CORPUSCULAR HGB CONC 33 g/dL (31-37); MEAN CORPUSCULAR VOLUME 91 fL (79-100); MONO # 0.9 x10^3/uL (0.0-1.1); MONO % 11 % (0-9); NEUT # 5.1 x10^3/uL (1.8-7.7); NEUT % 60 % (31-73); PLATELET COUNT 216 x10^3/uL (140-400); RED BLOOD COUNT 4.46 x10^6/uL (4.30-5.70); WHITE BLOOD COUNT 8.6 x10^3/uL (4.0-11.0)
[2021-06-11 09:16] LABS: CALCIUM 8.3 mg/dL (8.5-10.1); GFR 91.3; POTASSIUM 4.2 mmol/L (3.5-5.1)
[2021-06-11 09:19] LABS: PROTHROMBIN TIME PATIENT 12.7 SEC (11.7-14.0)
[2021-06-11] MEDS ORDERED: HEPARIN PF 500 UNIT/5 ML DISP.SYRIN. IVP ONE (09:31)
[2021-06-11] MEDS ORDERED: LIDOCAINE 1%/EPI 1:100,000 20 ML VIAL. ONE (09:31)
[2021-06-11] MEDS ORDERED: fentaNYL PF VIAL 100 MCG/2 ML VIAL ONE (09:52)
[2021-06-11] MEDS ORDERED: ceFAZolin SODIUM IV Push 1 GM VIAL. IVP ONE ×2 (09:52→10:00)
[2021-06-11] MEDS ORDERED: MIDAZOLAM HCL/PF 2 MG/2 ML VIAL. ONE (09:52)
[2021-06-11] MEDS: MIDAZOLAM HCL/PF 2 MG/2 ML VIAL. IV ONE (10:00)
[2021-06-11] MEDS ORDERED: LIDOCAINE 1% Multi-Dose 20 ML VIAL. INJ ONE (10:00)
[2021-06-11] MEDS ORDERED: fentaNYL PF VIAL 100 MCG/2 ML VIAL IV ONE (10:00)
[2021-06-11] MEDS ORDERED: HEPARIN for IV BOLUS 10,000 UNIT/10 ML VIAL. IV ONE (10:00)
--- NOTE | 2021-06-11 10:40 | PDOC ---
MODERATE SEDATION ASSESSMENT RISKS/ALTERNATIVES Risks/Alternatives Risks and alternatives of this type of sedation and procedure discussed with: RISK/ALTERNATIVES: Patient H & P ON CHART H & P H & P on chart and reviewed for co-morbid conditions and appropriate labs. H&P ON CHART: Yes STATUS PREG STATUS ASSESSED: Yes MEDS/ALLERGIES REVIEWED Meds/Allergies Reviewed Medications and Allergies including time and route of recently administered narcotics and sedatives. MEDS/ALLERGIES REVIEWED: Yes ASA RATING ASA RATING: II AIRWAY ASSESSMENT Airway Assessment Airway patency, oral function limitations, presence of caps, crowns, dentures, partials, and ability to extend neck assessed. AIRWAY ASSESSMENT: Yes MALLAMPATI SCORE MALLAMPATI SCORE: II PRE-SEDATION ASSESSMENT PRE-SEDATION ASSESSMENT: Yes DAVID GARCIA MD Jun 11, 2021 10:40
--- NOTE | 2021-06-11 13:45 | NUR ---
PIV removed. VS stable. No bleeding at port site. Patient given education on site care, sedation. Verbalized understanding. No questions at time of discharge. All belongings taken with patient. Transportation provided through insurance.
--- NOTE | 2021-06-12 11:25 | RAD ---
Procedure: Port-A-Cath placement. Clinical Indication: Adult male requiring chemotherapy for large cell lymphoma Sedation: Conscious sedation using a combination of Versed and fentanyl was provided for 35 minutes, including continuous monitoring of the patients heart rate, rhythm, blood pressure, oxygen saturation and level of arousability by a trained independent observer. Antibiotics: Antibiotic was administered intravenously within 1 hour of the procedure start time. Exposure: Kerma-Area Product: 1 mGycm2 Sterility: All elements of maximal sterile barrier technique including the use of a cap, mask, steril e gown, sterile gloves, large sterile sheet, appropriate hand hygiene, and 2% chlorhexidine for cutan eous antisepsis (or acceptable alternative antiseptic per current guidelines) were followed for this procedure. Consent: The procedure was explained in its entirety to the patient or the patients designated repres entative by a member of the treatment team, including a discussion of the risks, benefits and commonl y accepted alternatives to the procedure, as well as the expected consequences of not performing the procedure. Discussion of the risks included, but was not limited to, those that are most frequent an d those that are rare but possibly severe or life-threatening, as well as the possibility of unforese en complications. Technique and Findings: Following informed consent, the patient was prepped and draped in the usual s terile fashion. All elements of maximum sterile barrier technique were employed. 2% lidocaine was us ed to achieve local anesthesia over the right neck. A small dermatotomy was made, and, under ultrasou nd guidance, a 21-gauge micropuncture needle was used to gain access to the right internal jugular ve in. The vein was seen to be widely patent. A hard copy ultrasound image was recorded. The needle was exchanged over a wire for a transitional sheath which was used to facilitate placement of an Amplatz wire within the IVC. The skin over the right anterior chest wall was then copiously anesthetized wit h 2% lidocaine plus epinephrine. An short incision was made using a #15 blade and blunt dissection te chniques were used to create a subcutaneous pocket for the port. The port was then tunneled subcutane ously towards the neck dermatotomy. The transitional sheath was exchanged for an 8 [place] peel-away s juventino, which was used to deploy the port under fluoroscopic control such that the distal tip resided at the cavoatrial junction. The port was then accessed, and flushed and aspirated with ease. The subc utaneous pocket was then closed with deep interrupted and running subcuticular sutures utilizing 4-0 Vicryl. Dermabond was used to close the neck dermatotomy. Patient tolerated the procedure well and le ft the radiology department in stable condition. Impression: 1. Successful placement of a right IJ Port-A-Cath as described. Electronically signed by: Rupesh Boone MD (06/12/2021 11:23 AM) [id number]
== END 2021-06-11 12:45 | disposition home or self-care (01) ==
LOC: INTRAD 08:14
PROVIDERS: ATTEND Internal Medicine Hematology & Oncology
DX: Z45.2 Encounter for adjustment and management of vascular access device (principal); R59.1 Generalized enlarged lymph nodes; I10 Essential (primary) hypertension; E78.00 Pure hypercholesterolemia, unspecified; J44.9 Chronic obstructive pulmonary disease, unspecified; K21.9 Gastro-esophageal reflux disease without esophagitis; M19.90 Unspecified osteoarthritis, unspecified site; F41.9 Anxiety disorder, unspecified; F32.9 Major depressive disorder, single episode, unspecified; F17.210 Nicotine dependence, cigarettes, uncomplicated; Z90.49 Acquired absence of other specified parts of digestive tract; Z98.890 Other specified postprocedural states; Z72.89 Other problems related to lifestyle; Z79.899 Other long term (current) drug therapy
CPT/HCPCS: 36415; 36561; 76937; 77001; 80048; 85025; 85610; 99152; 99153; C1769; C1788; C1892; J0690; J1644; J2250; J3010; J3490

== ENCOUNTER → 2021-06-13 | Outpatient (CLI) | payer MEDICAID ==
[2021-06-11 11:35] VITALS: BP 141/76
--- NOTE | 2021-06-13 18:18 | RAD ---
EXAM: PET/CT SCAN INDICATION: Lymphadenopathy, large cell lymphoma. COMPARISON: CT chest abdomen pelvis 05/07/2021 PET/CT SCAN TECHNIQUE: Approximately 60 minutes after the intravenous administration of 12.1 millicur ies of F-18 fluorodeoxyglucose (FDG), PET imaging of the body from the base of the skull through the mid thighs was performed. Reconstruction in all 3 planes were performed. The patient's serum glucose level at the time of the F-18 FDG administration was 91 mg/dL. A noncontrast CT scan was obtained for attenuation correction and anatomic localization purposes only and is not considered a diagnostic CT scan. PQRS compliance Statement One or more of the following individualized dose reduction techniques were utilized for this study: 1. Automated exposure control 2. Adjustment of the mA and/or kV according to patient size 3. Use of iterative reconstruction technique FINDINGS: HEAD AND NECK: Multiple bilateral FDG avid cervical chain lymph nodes, greater on the left. For examp le, an enlarged left submental lymph node with SUV max 10.71. Left level 2 lymph node with SUV max 10 .8. Left level 3 lymph node with SUV max 15.37. Milder FDG uptake in right cervical chain lymph nodes , for example SUV max in level 2 and 3 lymph nodes around 4-5. CHEST: Multiple bilateral enlarged FDG avid axillary and subpectoral lymph nodes. For example, a larg e left right axillary lymph node has SUV max 15.58. A large left axillary lymph node has SUV max 11.2 . A right subpectoral lymph node has SUV max 11.4. Left subpectoral lymph node has SUV max 7.2. There is mild FDG uptake in mediastinal and hilar lymph nodes. For example, an AP window lymph node h as SUV max 3.0. A right peritracheal lymph node SUV max 2.8. A subcarinal lymph node SUV max 3.5. Lef t hilar region SUV max 2.8. Heart is mildly enlarged. A right port is in place. There is minimal atelectasis in the right middle lobe. There is a small right pleural effusion with low-level FDG uptake. There is FDG uptake in the e ighth and ninth right intercostal spaces, SUV max 5.0. ABDOMEN AND PELVIS: Multiple FDG avid lymph nodes in the abdomen and pelvis. For example, bulky left periaortic lymph node conglomeration has SUV max 14.4. The enlarged right common and external iliac c argelia lymph nodes have SUV max of 8 to 9. Left external iliac chain lymph nodes have SUV max 5.5-6.0. Multiple additional smaller lymph nodes with mild FDG uptake, for example in the fadia hepatis region with mild FDG uptake around 4.0. There is splenomegaly with increased FDG uptake in the spleen, SUV max 5.4. Long segment of increased FDG uptake in bowel in the pelvis is likely infectious/inflammatory. Surgical changes of cholecystectomy and of the bowel in the left side of the abdomen. There is calcif ied aortoiliac atherosclerosis. MUSCULOSKELETAL: There are enlarged bilateral inguinal lymph nodes. Two of the enlarged right inguina l lymph nodes have SUV max around 11.3 and 5.8. Two of the enlarged left inguinal lymph nodes have VALDIVIA V max 8.4 and 3.9. There is also a more ill-defined hypoechoic collection in the left groin with mild FDG uptake, 3.9. This could be a fluid collection or necrotic lymph node. There is FDG uptake along the proximal right superficial femoral vessels, SUV max 6.7. This could be within lymph nodes although there may be surgical clips in this region and this could also be postsur gical granulation tissue. Thrombus cannot be excluded. There is a focus of FDG uptake in the right L1 pedicle, SUV max 4.6. Additional area of FDG uptake in the right iliac wing, SUV max 8.0. IMPRESSION: 1. FDG avid lymphadenopathy in the neck, chest, abdomen, and pelvis consistent with lymphoma, with VALDIVIA V max around 15. 2. There is splenomegaly with increased FDG uptake in the spleen. 3. Small right pleural effusion with low-level FDG uptake. There is also FDG uptake in the right eigh th and ninth intercostal spaces, SUV max around 9. 4. FDG inguinal lymphadenopathy. A more ill-defined hypodense collection in the left groin with mild FDG uptake could be a necrotic lymph node or fluid collection. There is also FDG uptake along the pro ximal right superficial femoral vessels. There appear to be surgical clips in this region and this co uld be uptake within granulation tissue or potentially could be within lymph nodes. FDG uptake relate d to thrombus cannot be excluded. 5. Moderate focal FDG uptake in the right iliac wing and focal FDG uptake in the right L1 pedicle. Electronically signed by: Ashlee Fonseca MD (06/13/2021 6:15 PM) [id number]
== END ==
LOC: PETSC 09:18
PROVIDERS: ATTEND Internal Medicine Hematology & Oncology
DX: C83.39 Diffuse large B-cell lymphoma, extranodal and solid organ sites (principal); R59.0 Localized enlarged lymph nodes; I51.7 Cardiomegaly; R16.1 Splenomegaly, not elsewhere classified; J90 Pleural effusion, not elsewhere classified; J98.11 Atelectasis; I70.0 Atherosclerosis of aorta; I70.8 Atherosclerosis of other arteries; Z90.49 Acquired absence of other specified parts of digestive tract
CPT/HCPCS: 78815; A9552

== ENCOUNTER → 2021-06-18 | Outpatient (CLI) | payer MEDICAID ==
[2021-06-11 11:35] VITALS: BP 141/76
[2021-06-18 08:37] LABS: BASO # 0.1 x10^3/uL (0.0-0.2); BASO % 2 % (0-3); EOS # 0.1 x10^3/uL (0.0-0.7); EOS % 2 % (0-3); HEMATOCRIT 37.5 % (39.0-53.0); HEMOGLOBIN 12.8 g/dL (13.0-17.5); LYMPH # 2.6 x10^3/uL (1.0-4.8); LYMPH % 29 % (24-48); MEAN CORPUSCULAR HEMOGLOBIN 31 pg (25-35); MEAN CORPUSCULAR HGB CONC 34 g/dL (31-37); MEAN CORPUSCULAR VOLUME 91 fL (79-100); MONO # 0.9 x10^3/uL (0.0-1.1); MONO % 10 % (0-9); NEUT # 5.2 x10^3/uL (1.8-7.7); NEUT % 59 % (31-73); PLATELET COUNT 261 x10^3/uL (140-400); RED BLOOD COUNT 4.13 x10^6/uL (4.30-5.70); RED CELL DISTRIBUTION WIDTH 14.6 % (11.5-14.5)
[2021-06-18 08:44] LABS: CALCIUM 8.6 mg/dL (8.5-10.1); CREATININE 0.9 mg/dL (0.7-1.3); GFR 103.1
[2021-06-18 08:51] LABS: ALBUMIN 3.1 g/dL (3.4-5.0); ALBUMIN/GLOBULIN RATIO 0.7 (1.0-1.7); TOTAL BILIRUBIN 0.4 mg/dL (0.2-1.0); TOTAL PROTEIN 7.6 g/dL (6.4-8.2); URIC ACID 4.5 mg/dL (3.5-7.2)
== END ==
LOC: ONCLAB 08:22
PROVIDERS: ATTEND Internal Medicine Hematology & Oncology
DX: C83.30 Diffuse large B-cell lymphoma, unspecified site (principal)
CPT/HCPCS: 36415; 80053; 83615; 84550; 85025

== ENCOUNTER → 2021-06-24 | Outpatient (CLI) | payer MEDICAID ==
[2021-06-24] VITALS (9 sets, daily range): BP systolic 115–135; BP diastolic 68–74
[~2021-06-24] VITALS: Ht 180.3 cm; Wt 68.0 kg
[~2021-06-24] MED LIST changes: +LIDOCAINE WITH 8.4% SOD BICARB 3 ML DISP.SYRIN. IJ ONE; +LIDOCAINE WITH 8.4% SOD BICARB 3 ML DISP.SYRIN. ONE; +MIDAZOLAM HCL/PF 2 MG/2 ML VIAL. IV ONE; +MIDAZOLAM HCL/PF 2 MG/2 ML VIAL. ONE; +fentaNYL PF VIAL 100 MCG/2 ML VIAL IV ONE; +fentaNYL PF VIAL 100 MCG/2 ML VIAL ONE
[2021-06-24 09:10] LABS: HEMATOCRIT 35.4 % (39.0-53.0); HEMOGLOBIN 11.7 g/dL (13.0-17.5); LYMPH % 17 % (24-48); MEAN CORPUSCULAR HEMOGLOBIN 30 pg (25-35); MEAN CORPUSCULAR HGB CONC 33 g/dL (31-37); MEAN CORPUSCULAR VOLUME 91 fL (79-100); NEUT % 80 % (31-73); PLATELET COUNT 151 x10^3/uL (140-400); RED BLOOD COUNT 3.91 x10^6/uL (4.30-5.70); RED CELL DISTRIBUTION WIDTH 14.5 % (11.5-14.5); WHITE BLOOD COUNT 11.1 x10^3/uL (4.0-11.0)
[2021-06-24 09:11] LABS: BASO # 0.1 x10^3/uL (0.0-0.2); BASO % 1 % (0-3); EOS # 0.1 x10^3/uL (0.0-0.7); EOS % 1 % (0-3); LYMPH # 1.9 x10^3/uL (1.0-4.8); MONO # 0.2 x10^3/uL (0.0-1.1); MONO % 2 % (0-9); NEUT # 8.9 x10^3/uL (1.8-7.7)
--- NOTE | 2021-06-24 10:26 | RAD ---
Procedure: CT guided iliac crest bone marrow aspirate and biopsy with conscious sedation . Clinical Indication: Lymphoma Discussion: The risks and benefits of the procedure including but not limited to infection, bleeding, and pain, were discussed the patient. Informed consent was obtained. Patient was brought to the CT s canner and placed in the prone position. A time out procedure was performed. The left gluteal region was prepped and draped using maximum sterile barrier technique. CT imaging of the pelvis was perform ed demonstrating a left ilium amenable to bone marrow biopsy. Once an appropriate site for skin entry was selected 1% lidocaine without epinephrine was administered for local anesthesia Following this an [employer] Manager an 11 gauge biopsy needle was set into the superficial cortex of the iliac crest. Aspirates and cores were obtained. Pressure was held to achieve hemostasis. Sterile dressing was applied. The patient tolerated the procedure well without immediate complication. Sedation: Conscious sedation was performed for 15 minutes. Sedation was carried while the patient wa s continually monitored by a member of the Radiology nursing staff. Continual cardiopulmonary monito ring was carried out during the procedure. Conclusion: Successful CT guided bone marrow biopsy and aspirate of left iliac crest CT DOSING PQRS STATEMENT: One or more of the following individualized dose reduction techniques were utilized for this examinat ion: 1. Automated exposure control 2. Adjustment of the mA and/or kV according to patient size 3. Use of iterative reconstruction technique Electronically signed by: Hiren Rodgers MD (06/24/2021 10:24 AM) [id number]
--- NOTE | 2021-06-24 11:08 | NUR ---
Patient's Port a Cath de-access. Bandaid applied. VS stable. No bleeding at biopsy site. Instructions provided on site care, sedation. Patient aware that Oncologist will have test results. Verbalized understanding of teaching. Transportation via insurance will take patient home. RN contacted.
--- NOTE | 2021-06-24 11:31 | NUR ---
Patient taken to transport vehicle via wheelchair. All belongings, including cell phone, taken w/ patient.
== END | disposition home or self-care (01) ==
LOC: INTRAD 07:59
PROVIDERS: ATTEND Internal Medicine Hematology & Oncology
DX: R59.9 Enlarged lymph nodes, unspecified (principal); C85.15 Unspecified B-cell lymphoma, lymph nodes of inguinal region and lower limb; I10 Essential (primary) hypertension; E78.00 Pure hypercholesterolemia, unspecified; J44.9 Chronic obstructive pulmonary disease, unspecified; K21.9 Gastro-esophageal reflux disease without esophagitis; M19.90 Unspecified osteoarthritis, unspecified site; F41.9 Anxiety disorder, unspecified; F32.9 Major depressive disorder, single episode, unspecified; F17.210 Nicotine dependence, cigarettes, uncomplicated; Z90.49 Acquired absence of other specified parts of digestive tract; Z98.890 Other specified postprocedural states; Z79.899 Other long term (current) drug therapy; Z72.89 Other problems related to lifestyle
CPT/HCPCS: 36415; 38222; 77012; 85025; 88184; 88185; 88237; 88374; 99152; J2250; J3010; J3490

== ENCOUNTER → 2021-06-27 | Outpatient (CLI) | payer MEDICAID ==
[2021-06-24 11:00] VITALS: BP 135/70
[~2021-06-27] MED LIST changes: -LIDOCAINE WITH 8.4% SOD BICARB 3 ML DISP.SYRIN. IJ ONE; -LIDOCAINE WITH 8.4% SOD BICARB 3 ML DISP.SYRIN. ONE; -MIDAZOLAM HCL/PF 2 MG/2 ML VIAL. IV ONE; -MIDAZOLAM HCL/PF 2 MG/2 ML VIAL. ONE; -fentaNYL PF VIAL 100 MCG/2 ML VIAL IV ONE; -fentaNYL PF VIAL 100 MCG/2 ML VIAL ONE
[2021-06-27 08:23] LABS: BASO # 0.1 x10^3/uL (0.0-0.2); BASO % 0 % (0-3); EOS # 0.1 x10^3/uL (0.0-0.7); EOS % 0 % (0-3); HEMATOCRIT 36.6 % (39.0-53.0); LYMPH # 3.3 x10^3/uL (1.0-4.8); LYMPH % 15 % (24-48); MEAN CORPUSCULAR HEMOGLOBIN 30 pg (25-35); MEAN CORPUSCULAR HGB CONC 33 g/dL (31-37); MEAN CORPUSCULAR VOLUME 91 fL (79-100); MONO # 0.9 x10^3/uL (0.0-1.1); MONO % 4 % (0-9); NEUT # 17.2 x10^3/uL (1.8-7.7); NEUT % 80 % (31-73); PLATELET COUNT 158 x10^3/uL (140-400); RED BLOOD COUNT 4.04 x10^6/uL (4.30-5.70); RED CELL DISTRIBUTION WIDTH 14.9 % (11.5-14.5); WHITE BLOOD COUNT 21.7 x10^3/uL (4.0-11.0)
[2021-06-27 08:28] LABS: CALCIUM 8.7 mg/dL (8.5-10.1); CREATININE 0.9 mg/dL (0.7-1.3); GFR 103.1
[2021-06-27 08:34] LABS: ALBUMIN 3.2 g/dL (3.4-5.0); ALBUMIN/GLOBULIN RATIO 0.8 (1.0-1.7); TOTAL BILIRUBIN 0.3 mg/dL (0.2-1.0); TOTAL PROTEIN 7.1 g/dL (6.4-8.2); URIC ACID 4.8 mg/dL (3.5-7.2)
[2021-06-27 09:33] LABS: % BANDS 17 % (0-9); % LYMPHS 47 % (24-48); % MONOS 4 % (0-10); % SEGS 32 % (35-66)
[2021-06-27 09:34] LABS: PLT ESTIMATE ADEQUATE (ADEQUATE)
== END ==
LOC: ONCLAB 08:00
PROVIDERS: ATTEND Internal Medicine Hematology & Oncology
DX: C83.39 Diffuse large B-cell lymphoma, extranodal and solid organ sites (principal)
CPT/HCPCS: 36415; 80053; 83615; 84550; 85007; 85025

== ENCOUNTER → 2021-07-10 | Outpatient (CLI) | payer MEDICAID ==
[2021-06-24 11:00] VITALS: BP 135/70
[2021-07-10 08:15] LABS: BASO # 0.1 x10^3/uL (0.0-0.2); BASO % 1 % (0-3); EOS % 0 % (0-3); HEMATOCRIT 39.2 % (39.0-53.0); HEMOGLOBIN 12.9 g/dL (13.0-17.5); LYMPH # 1.9 x10^3/uL (1.0-4.8); LYMPH % 21 % (24-48); MEAN CORPUSCULAR HEMOGLOBIN 30 pg (25-35); MEAN CORPUSCULAR HGB CONC 33 g/dL (31-37); MEAN CORPUSCULAR VOLUME 90 fL (79-100); MONO # 1.1 x10^3/uL (0.0-1.1); MONO % 12 % (0-9); NEUT % 65 % (31-73); PLATELET COUNT 373 x10^3/uL (140-400); RED BLOOD COUNT 4.34 x10^6/uL (4.30-5.70); RED CELL DISTRIBUTION WIDTH 15.8 % (11.5-14.5); WHITE BLOOD COUNT 9.1 x10^3/uL (4.0-11.0)
[2021-07-10 08:35] LABS: CALCIUM 8.9 mg/dL (8.5-10.1); CREATININE 0.9 mg/dL (0.7-1.3); GFR 103.1
[2021-07-10 08:40] LABS: ALBUMIN 3.3 g/dL (3.4-5.0); ALBUMIN/GLOBULIN RATIO 0.8 (1.0-1.7); TOTAL BILIRUBIN 0.6 mg/dL (0.2-1.0); TOTAL PROTEIN 7.6 g/dL (6.4-8.2)
== END ==
LOC: ONCLAB 08:01
PROVIDERS: ATTEND Internal Medicine Hematology & Oncology
DX: C83.39 Diffuse large B-cell lymphoma, extranodal and solid organ sites (principal)
CPT/HCPCS: 36415; 80053; 85025

== ENCOUNTER → 2021-07-17 | Outpatient (CLI) | payer MEDICAID ==
[2021-06-24 11:00] VITALS: BP 135/70
[2021-07-17 10:10] LABS: BASO # 0.1 x10^3/uL (0.0-0.2); BASO % 1 % (0-3); EOS # 0.1 x10^3/uL (0.0-0.7); EOS % 2 % (0-3); HEMATOCRIT 34.9 % (39.0-53.0); HEMOGLOBIN 11.4 g/dL (13.0-17.5); LYMPH # 1.1 x10^3/uL (1.0-4.8); LYMPH % 17 % (24-48); MEAN CORPUSCULAR HEMOGLOBIN 29 pg (25-35); MEAN CORPUSCULAR HGB CONC 33 g/dL (31-37); MEAN CORPUSCULAR VOLUME 90 fL (79-100); MONO # 0.2 x10^3/uL (0.0-1.1); MONO % 4 % (0-9); NEUT # 4.7 x10^3/uL (1.8-7.7); NEUT % 76 % (31-73); PLATELET COUNT 244 x10^3/uL (140-400); RED BLOOD COUNT 3.88 x10^6/uL (4.30-5.70); WHITE BLOOD COUNT 6.2 x10^3/uL (4.0-11.0)
[2021-07-17 10:35] LABS: CALCIUM 8.8 mg/dL (8.5-10.1); CREATININE 0.8 mg/dL (0.7-1.3); GFR 118.1; POTASSIUM 3.7 mmol/L (3.5-5.1)
[2021-07-17 10:40] LABS: ALBUMIN 2.9 g/dL (3.4-5.0); ALBUMIN/GLOBULIN RATIO 0.7 (1.0-1.7); TOTAL BILIRUBIN 0.8 mg/dL (0.2-1.0); TOTAL PROTEIN 6.9 g/dL (6.4-8.2)
== END ==
LOC: ONCLAB 09:42
PROVIDERS: ATTEND Internal Medicine Hematology & Oncology
DX: C83.30 Diffuse large B-cell lymphoma, unspecified site (principal)
CPT/HCPCS: 36415; 80053; 85025

== ENCOUNTER → 2021-07-24 | Outpatient (CLI) | payer MEDICAID ==
[2021-06-24 11:00] VITALS: BP 135/70
[2021-07-24 08:31] LABS: BASO % 1 % (0-3); EOS % 1 % (0-3); HEMATOCRIT 35.2 % (39.0-53.0); HEMOGLOBIN 11.5 g/dL (13.0-17.5); LYMPH # 1.2 x10^3/uL (1.0-4.8); LYMPH % 38 % (24-48); MEAN CORPUSCULAR HEMOGLOBIN 30 pg (25-35); MEAN CORPUSCULAR HGB CONC 33 g/dL (31-37); MEAN CORPUSCULAR VOLUME 91 fL (79-100); MONO # 0.8 x10^3/uL (0.0-1.1); MONO % 26 % (0-9); NEUT # 1.1 x10^3/uL (1.8-7.7); NEUT % 34 % (31-73); PLATELET COUNT 270 x10^3/uL (140-400); RED BLOOD COUNT 3.88 x10^6/uL (4.30-5.70); RED CELL DISTRIBUTION WIDTH 15.8 % (11.5-14.5); WHITE BLOOD COUNT 3.2 x10^3/uL (4.0-11.0)
[2021-07-24 08:34] LABS: CALCIUM 8.8 mg/dL (8.5-10.1); GFR 91.3; POTASSIUM 3.9 mmol/L (3.5-5.1)
[2021-07-24 08:39] LABS: ALBUMIN 3.1 g/dL (3.4-5.0); ALBUMIN/GLOBULIN RATIO 0.7 (1.0-1.7); TOTAL BILIRUBIN 0.4 mg/dL (0.2-1.0); TOTAL PROTEIN 7.3 g/dL (6.4-8.2)
[2021-07-24 09:03] LABS: % BANDS 1 % (0-9); % EOS 2 % (0-5); % LYMPHS 45 % (24-48); % MONOS 16 % (0-10); % SEGS 36 % (35-66)
[2021-07-24 09:04] LABS: PLATELET CLUMP PRESENT; PLT ESTIMATE ADEQUATE (ADEQUATE)
[2021-07-24 09:07] LABS: OVALOCYTES OCC
== END ==
LOC: ONCLAB 08:06
PROVIDERS: ATTEND Internal Medicine Hematology & Oncology
DX: C83.30 Diffuse large B-cell lymphoma, unspecified site (principal)
CPT/HCPCS: 36415; 80053; 83615; 85007; 85025

== ENCOUNTER → 2021-08-07 | Outpatient (CLI) | payer MEDICAID ==
[2021-06-24 11:00] VITALS: BP 135/70
[2021-08-07 08:26] LABS: BASO % 1 % (0-3); EOS % 0 % (0-3); HEMOGLOBIN 11.7 g/dL (13.0-17.5); LYMPH # 1.4 x10^3/uL (1.0-4.8); LYMPH % 18 % (24-48); MEAN CORPUSCULAR HEMOGLOBIN 30 pg (25-35); MEAN CORPUSCULAR HGB CONC 33 g/dL (31-37); MEAN CORPUSCULAR VOLUME 92 fL (79-100); MONO # 0.8 x10^3/uL (0.0-1.1); MONO % 10 % (0-9); NEUT # 5.4 x10^3/uL (1.8-7.7); NEUT % 71 % (31-73); PLATELET COUNT 231 x10^3/uL (140-400); RED CELL DISTRIBUTION WIDTH 17.5 % (11.5-14.5); WHITE BLOOD COUNT 7.7 x10^3/uL (4.0-11.0)
[2021-08-07 08:31] LABS: ALBUMIN 3.1 g/dL (3.4-5.0); ALBUMIN/GLOBULIN RATIO 0.7 (1.0-1.7); CALCIUM 8.5 mg/dL (8.5-10.1); CREATININE 0.9 mg/dL (0.7-1.3); GFR 103.1; TOTAL BILIRUBIN 0.3 mg/dL (0.2-1.0); TOTAL PROTEIN 7.5 g/dL (6.4-8.2)
[2021-08-09 13:09] LABS: HCV ULTRA QUANT PCR HCV Not Detected IU/mL (.)
== END ==
LOC: ONCLAB 08:38
PROVIDERS: ATTEND Internal Medicine Hematology & Oncology
DX: C83.30 Diffuse large B-cell lymphoma, unspecified site (principal); Z86.19 Personal history of other infectious and parasitic diseases
CPT/HCPCS: 36415; 80053; 85025; 87522

== ENCOUNTER → 2021-08-15 | Outpatient (CLI) | payer MEDICAID ==
[2021-06-24 11:00] VITALS: BP 135/70
[2021-08-15 08:43] LABS: BASO # 0.1 x10^3/uL (0.0-0.2); BASO % 4 % (0-3); EOS # 0.1 x10^3/uL (0.0-0.7); EOS % 3 % (0-3); HEMATOCRIT 34.6 % (39.0-53.0); HEMOGLOBIN 11.4 g/dL (13.0-17.5); LYMPH # 1.1 x10^3/uL (1.0-4.8); LYMPH % 44 % (24-48); MEAN CORPUSCULAR HEMOGLOBIN 30 pg (25-35); MEAN CORPUSCULAR HGB CONC 33 g/dL (31-37); MEAN CORPUSCULAR VOLUME 91 fL (79-100); MONO # 0.1 x10^3/uL (0.0-1.1); MONO % 4 % (0-9); NEUT # 1.1 x10^3/uL (1.8-7.7); NEUT % 45 % (31-73); PLATELET COUNT 183 x10^3/uL (140-400); RED BLOOD COUNT 3.81 x10^6/uL (4.30-5.70); RED CELL DISTRIBUTION WIDTH 16.9 % (11.5-14.5); WHITE BLOOD COUNT 2.4 x10^3/uL (4.0-11.0)
[2021-08-15 09:20] LABS: CALCIUM 8.5 mg/dL (8.5-10.1); CREATININE 0.8 mg/dL (0.7-1.3); GFR 118.1; POTASSIUM 3.6 mmol/L (3.5-5.1)
[2021-08-15 09:25] LABS: ALBUMIN 3.4 g/dL (3.4-5.0); ALBUMIN/GLOBULIN RATIO 0.8 (1.0-1.7); TOTAL BILIRUBIN 0.4 mg/dL (0.2-1.0); TOTAL PROTEIN 7.6 g/dL (6.4-8.2)
[2021-08-15 10:10] LABS: % ATYL 3 % (0-0); % BASOS 1 % (0-3); % EOS 2 % (0-5); % LYMPHS 45 % (24-48); % MONOS 6 % (0-10); % SEGS 43 % (35-66); PLT ESTIMATE ADEQUATE (ADEQUATE)
== END ==
LOC: ONCLAB 08:24
PROVIDERS: ATTEND Physician Assistant
DX: C83.39 Diffuse large B-cell lymphoma, extranodal and solid organ sites (principal); R59.9 Enlarged lymph nodes, unspecified
CPT/HCPCS: 36415; 80053; 85007; 85025

== ENCOUNTER → 2021-09-04 | Outpatient (CLI) | payer MEDICAID ==
[2021-06-24 11:00] VITALS: BP 135/70
[2021-09-04 08:56] LABS: CALCIUM 8.4 mg/dL (8.5-10.1); CREATININE 1.1 mg/dL (0.7-1.3); GFR 81.8; POTASSIUM 4.1 mmol/L (3.5-5.1)
[2021-09-04 09:03] LABS: ALBUMIN 3.2 g/dL (3.4-5.0); ALBUMIN/GLOBULIN RATIO 0.8 (1.0-1.7); TOTAL BILIRUBIN 0.4 mg/dL (0.2-1.0); TOTAL PROTEIN 7.2 g/dL (6.4-8.2)
[2021-09-04 09:08] LABS: BASO # 0.1 x10^3/uL (0.0-0.2); BASO % 3 % (0-3); EOS # 0.1 x10^3/uL (0.0-0.7); EOS % 2 % (0-3); HEMATOCRIT 36.8 % (39.0-53.0); HEMOGLOBIN 11.9 g/dL (13.0-17.5); LYMPH # 1.2 x10^3/uL (1.0-4.8); LYMPH % 23 % (24-48); MEAN CORPUSCULAR HEMOGLOBIN 31 pg (25-35); MEAN CORPUSCULAR HGB CONC 32 g/dL (31-37); MEAN CORPUSCULAR VOLUME 94 fL (79-100); MONO % 19 % (0-9); NEUT # 2.9 x10^3/uL (1.8-7.7); NEUT % 55 % (31-73); PLATELET COUNT 301 x10^3/uL (140-400); RED BLOOD COUNT 3.91 x10^6/uL (4.30-5.70); RED CELL DISTRIBUTION WIDTH 17.9 % (11.5-14.5); WHITE BLOOD COUNT 5.3 x10^3/uL (4.0-11.0)
[2021-09-04 10:31] LABS: % BASOS 3 % (0-3); % LYMPHS 22 % (24-48); % MONOS 20 % (0-10); % SEGS 55 % (35-66); ANISOCYTOSIS PRESENT; PLT ESTIMATE ADEQUATE (ADEQUATE)
== END ==
LOC: ONCLAB 08:03
PROVIDERS: ATTEND Internal Medicine Hematology & Oncology
DX: C83.39 Diffuse large B-cell lymphoma, extranodal and solid organ sites (principal); R59.9 Enlarged lymph nodes, unspecified
CPT/HCPCS: 36415; 80053; 85007; 85025

== ENCOUNTER → 2021-09-12 | Outpatient (CLI) | payer MEDICAID ==
[2021-06-24 11:00] VITALS: BP 135/70
[~2021-09-12] MED LIST changes: +IOHEXOL 240 MG/ML 50ML VIAL. PO ONE; +IOHEXOL 300 MG/ML 100ML VIAL. IV ONE
--- NOTE | 2021-09-12 17:50 | RAD ---
EXAM: CT CHEST, ABDOMEN, AND PELVIS WITHOUT CONTRAST INDICATION: Diffuse large B cell lymphoma COMPARISON: PET/CT 06/13/[address] chest abdomen pelvis 05/07/2021 TECHNIQUE: Helical CT imaging performed of the chest, abdomen and pelvis without the use of intraveno us contrast. Sagittal and coronal reformats were obtained. One or more of the following individualized dose reduction techniques were utilized for this examinat ion: 1. Automated exposure control 2. Adjustment of the mA and/or kV according to patient size 3. Use of iterative reconstruction technique. FINDINGS: CHEST: Thyroid gland and thoracic inlet: Thyroid gland is normal. Heart and great vessels: Heart is normal in size. No pericardial effusion. Thoracic aorta is normal i n caliber. Mediastinum and gonzalez: There are small mediastinal and hilar lymph nodes, unchanged to decreased. For example, subcarinal lymph node appears smaller. Mild diffuse esophageal wall thickening. Lungs and pleura: Mild paraseptal emphysema. There is mild atelectasis in the lung bases. Mucous plug ging seen in the posterior lateral basal segment of the right lower lobe. Mild subpleural groundglass opacities have decreased in the right lower lobe and are unchanged in the left lower lobe. There is a new ground glass opacity in the lateral right middle lobe. Mild atelectasis in the medial right mid dle lobe. No pleural effusion. Chest wall and axillae: Bilateral axillary and subpectoral lymphadenopathy has significantly improved . Abnormal lymph nodes are all either smaller or no longer visualized. For example, a left axillary l ymph node measuring 1.0 x 0.5 cm previously measured 2.0 x 1.7 cm. A left subpectoral lymph node now measures 0.4 x 0.3 cm, previously 1.6 x 0.8 cm. A right axillary lymph node now measures 0.7 x 0.6 cm , previously 1.0 x 0.7 cm. Bones: No acute osseous abnormality. ABDOMEN AND PELVIS: Liver: No focal liver lesion. Gallbladder/Biliary Tree: Gallbladder surgically absent. Bile ducts are normal. Pancreas: Normal. Spleen: The spleen is normal in size. There are some vascular calcifications along the spleen, likely sequela of old trauma. Adrenal Glands: Unchanged 2.2 cm left adrenal nodule. Right adrenal gland is normal. Kidneys/Ureters/Bladder: Kidneys are normal in size and enhance specially. Bilateral external pelves. No hydronephrosis. Ureters are nondilated. Bladder is normal. Reproductive Organs: Prostate gland is normal. Stomach, small bowel, and colon: The stomach, small bowel, and colon are unremarkable. The bowel is n ot well distended in areas, limiting evaluation. Vasculature: Abdominal aorta is normal in caliber. Mild calcified aortoiliac atherosclerosis. Lymph Nodes: Abdominal and pelvic lymphadenopathy has significantly improved. The enlarged periaortic lymph nodes have all either decreased in size or resolved. For example, the largest left periaortic lymph node now measures 0.8 x 0.5 cm, previously 2.6 x 1.3 cm. There is persistent ill-defined soft t issue at the fadia hepatis, decreased in size and attenuation. Right external iliac chain lymph nodes have decreased in size or resolved and are too small to measure. Enlarged bilateral inguinal lymph nodes have decreased in size. A right inguinal lymph node now measu res 1.0 x 0.5 cm, previously 1.5 x 1.0 cm. A left inguinal lymph node measures 1.2 x 0.8 cm, previous ly 2.7 x 2.0 cm. The ill-defined fluid collection or necrotic lymph node just above this on the prior exam has resolved. There is some residual fat stranding. Peritoneum and retroperitoneum: No free fluid or free air. Bones: No acute osseous abnormality. Moderate degenerative disc disease at L4-L5 and L5-S1. Other: Soft tissue encasing the right common and proximal superficial femoral vessels adjacent to ignacio gical clip is redemonstrated and could be postoperative. IMPRESSION:Positive treatment response with significantly improved lymphadenopathy in the chest, abdo men, and pelvis. Most lymph nodes have significantly decreased in size, some now too small to measure . Electronically signed by: Ashlee Fonseca MD (09/12/2021 5:47 PM) [facility]
== END ==
LOC: CT 12:59
PROVIDERS: ATTEND Internal Medicine Hematology & Oncology
DX: C83.39 Diffuse large B-cell lymphoma, extranodal and solid organ sites (principal); R59.0 Localized enlarged lymph nodes; J43.9 Emphysema, unspecified; J98.11 Atelectasis; T17.990A Other foreign object in respiratory tract, part unspecified in causing asphyxiation, initial encounter; D73.89 Other diseases of spleen; M51.37 Other intervertebral disc degeneration, lumbosacral region; X58.XXXA Exposure to other specified factors, initial encounter; Y93.89 Activity, other specified; Y92.89 Other specified places as the place of occurrence of the external cause; Y99.8 Other external cause status
CPT/HCPCS: 71260; 74177; Q9966; Q9967

== ENCOUNTER → 2021-09-12 | Outpatient (CLI) | payer MEDICAID ==
[2021-06-24 11:00] VITALS: BP 135/70
[~2021-09-12] MED LIST changes: -IOHEXOL 240 MG/ML 50ML VIAL. PO ONE; -IOHEXOL 300 MG/ML 100ML VIAL. IV ONE
[2021-09-12 12:13] LABS: BASO % 1 % (0-3); EOS # 0.2 x10^3/uL (0.0-0.7); EOS % 5 % (0-3); HEMATOCRIT 32.9 % (39.0-53.0); LYMPH # 1.2 x10^3/uL (1.0-4.8); LYMPH % 28 % (24-48); MEAN CORPUSCULAR HEMOGLOBIN 31 pg (25-35); MEAN CORPUSCULAR HGB CONC 33 g/dL (31-37); MEAN CORPUSCULAR VOLUME 94 fL (79-100); MONO # 0.7 x10^3/uL (0.0-1.1); MONO % 17 % (0-9); NEUT % 48 % (31-73); PLATELET COUNT 121 x10^3/uL (140-400); RED CELL DISTRIBUTION WIDTH 17.2 % (11.5-14.5); WHITE BLOOD COUNT 4.2 x10^3/uL (4.0-11.0)
[2021-09-12 12:26] LABS: CALCIUM 8.5 mg/dL (8.5-10.1); GFR 91.3; POTASSIUM 4.2 mmol/L (3.5-5.1)
[2021-09-12 12:32] LABS: ALBUMIN 3.2 g/dL (3.4-5.0); ALBUMIN/GLOBULIN RATIO 0.8 (1.0-1.7); TOTAL BILIRUBIN 0.3 mg/dL (0.2-1.0); TOTAL PROTEIN 7.2 g/dL (6.4-8.2)
[2021-09-12 13:00] LABS: % BANDS 6 % (0-9); % BASOS 1 % (0-3); % EOS 4 % (0-5); % LYMPHS 57 % (24-48); % MONOS 16 % (0-10); % SEGS 16 % (35-66); PLT ESTIMATE ADEQUATE (ADEQUATE)
== END ==
LOC: ONCLAB 11:41
PROVIDERS: ATTEND Internal Medicine Hematology & Oncology
DX: C83.30 Diffuse large B-cell lymphoma, unspecified site (principal)
CPT/HCPCS: 36415; 80053; 85007; 85025

== ENCOUNTER → 2021-09-19 | Outpatient (CLI) | payer MEDICAID ==
[2021-06-24 11:00] VITALS: BP 135/70
[2021-09-19 09:43] LABS: CALCIUM 8.3 mg/dL (8.5-10.1); GFR 91.3; POTASSIUM 4.2 mmol/L (3.5-5.1)
[2021-09-19 09:48] LABS: ALBUMIN 3.3 g/dL (3.4-5.0); ALBUMIN/GLOBULIN RATIO 0.9 (1.0-1.7); TOTAL BILIRUBIN 0.3 mg/dL (0.2-1.0); TOTAL PROTEIN 6.9 g/dL (6.4-8.2)
[2021-09-19 09:57] LABS: BASO % 1 % (0-3); EOS # 0.1 x10^3/uL (0.0-0.7); EOS % 3 % (0-3); HEMATOCRIT 37.1 % (39.0-53.0); HEMOGLOBIN 11.9 g/dL (13.0-17.5); LYMPH # 1.1 x10^3/uL (1.0-4.8); LYMPH % 21 % (24-48); MEAN CORPUSCULAR HEMOGLOBIN 31 pg (25-35); MEAN CORPUSCULAR HGB CONC 32 g/dL (31-37); MEAN CORPUSCULAR VOLUME 96 fL (79-100); MONO # 0.9 x10^3/uL (0.0-1.1); MONO % 18 % (0-9); NEUT % 58 % (31-73); PLATELET COUNT 208 x10^3/uL (140-400); RED BLOOD COUNT 3.87 x10^6/uL (4.30-5.70); RED CELL DISTRIBUTION WIDTH 18.9 % (11.5-14.5); WHITE BLOOD COUNT 5.1 x10^3/uL (4.0-11.0)
== END ==
LOC: ONCLAB 09:06
PROVIDERS: ATTEND Internal Medicine Hematology & Oncology
DX: C83.39 Diffuse large B-cell lymphoma, extranodal and solid organ sites (principal)
CPT/HCPCS: 36415; 80053; 85025

== ENCOUNTER → 2021-09-26 | Outpatient (CLI) | payer MEDICAID ==
[2021-06-24 11:00] VITALS: BP 135/70
[2021-09-26 08:27] LABS: BASO # 0.1 x10^3/uL (0.0-0.2); BASO % 1 % (0-3); EOS # 0.1 x10^3/uL (0.0-0.7); EOS % 2 % (0-3); HEMATOCRIT 40.9 % (39.0-53.0); HEMOGLOBIN 13.3 g/dL (13.0-17.5); LYMPH % 22 % (24-48); MEAN CORPUSCULAR HEMOGLOBIN 31 pg (25-35); MEAN CORPUSCULAR HGB CONC 33 g/dL (31-37); MEAN CORPUSCULAR VOLUME 97 fL (79-100); MONO # 0.9 x10^3/uL (0.0-1.1); MONO % 20 % (0-9); NEUT # 2.6 x10^3/uL (1.8-7.7); NEUT % 55 % (31-73); PLATELET COUNT 273 x10^3/uL (140-400); RED BLOOD COUNT 4.23 x10^6/uL (4.30-5.70); RED CELL DISTRIBUTION WIDTH 18.3 % (11.5-14.5); WHITE BLOOD COUNT 4.7 x10^3/uL (4.0-11.0)
[2021-09-26 08:59] LABS: CALCIUM 8.6 mg/dL (8.5-10.1); GFR 91.3; POTASSIUM 4.2 mmol/L (3.5-5.1)
[2021-09-26 09:05] LABS: ALBUMIN 3.5 g/dL (3.4-5.0); ALBUMIN/GLOBULIN RATIO 0.8 (1.0-1.7); TOTAL BILIRUBIN 0.5 mg/dL (0.2-1.0); TOTAL PROTEIN 7.8 g/dL (6.4-8.2)
[2021-09-26 09:08] LABS: % BANDS 1 % (0-9); % BASOS 3 % (0-3); % EOS 1 % (0-5); % LYMPHS 27 % (24-48); % MONOS 14 % (0-10); % SEGS 54 % (35-66); PLT ESTIMATE ADEQUATE (ADEQUATE)
== END ==
LOC: ONCLAB 08:07
PROVIDERS: ATTEND Internal Medicine Hematology & Oncology
DX: C83.39 Diffuse large B-cell lymphoma, extranodal and solid organ sites (principal)
CPT/HCPCS: 36415; 80053; 85007; 85025

== ENCOUNTER → 2021-10-02 | Outpatient (CLI) | payer MEDICAID ==
[2021-06-24 11:00] VITALS: BP 135/70
[2021-10-02 08:34] LABS: BASO # 0.1 x10^3/uL (0.0-0.2); BASO % 1 % (0-3); EOS # 0.1 x10^3/uL (0.0-0.7); EOS % 0 % (0-3); HEMOGLOBIN 11.7 g/dL (13.0-17.5); LYMPH # 0.8 x10^3/uL (1.0-4.8); LYMPH % 3 % (24-48); MEAN CORPUSCULAR HEMOGLOBIN 32 pg (25-35); MEAN CORPUSCULAR HGB CONC 33 g/dL (31-37); MEAN CORPUSCULAR VOLUME 97 fL (79-100); MONO # 0.7 x10^3/uL (0.0-1.1); MONO % 3 % (0-9); NEUT # 23.6 x10^3/uL (1.8-7.7); NEUT % 93 % (31-73); PLATELET COUNT 100 x10^3/uL (140-400); RED BLOOD COUNT 3.71 x10^6/uL (4.30-5.70); RED CELL DISTRIBUTION WIDTH 16.9 % (11.5-14.5); WHITE BLOOD COUNT 25.3 x10^3/uL (4.0-11.0)
[2021-10-02 08:43] LABS: CALCIUM 8.3 mg/dL (8.5-10.1); CREATININE 1.2 mg/dL (0.7-1.3); POTASSIUM 3.8 mmol/L (3.5-5.1)
[2021-10-02 08:50] LABS: ALBUMIN 3.4 g/dL (3.4-5.0); ALBUMIN/GLOBULIN RATIO 0.9 (1.0-1.7); TOTAL BILIRUBIN 0.6 mg/dL (0.2-1.0); TOTAL PROTEIN 7.2 g/dL (6.4-8.2)
[2021-10-02 09:26] LABS: % BANDS 1 % (0-9); % LYMPHS 2 % (24-48); % MONOS 3 % (0-10); % SEGS 94 % (35-66); PLT ESTIMATE DECREASED (ADEQUATE)
[2021-10-02 09:27] LABS: TOXIC GRANULATION SLIGHT
== END ==
LOC: ONCLAB 08:13
PROVIDERS: ATTEND Internal Medicine Hematology & Oncology
DX: C83.39 Diffuse large B-cell lymphoma, extranodal and solid organ sites (principal)
CPT/HCPCS: 36415; 80053; 85007; 85025

== ENCOUNTER → 2021-10-20 | Outpatient (CLI) | payer MEDICAID ==
[2021-06-24 11:00] VITALS: BP 135/70
[2021-10-20 08:42] LABS: BASO # 0.1 x10^3/uL (0.0-0.2); BASO % 2 % (0-3); EOS # 0.1 x10^3/uL (0.0-0.7); EOS % 2 % (0-3); HEMATOCRIT 36.8 % (39.0-53.0); HEMOGLOBIN 11.9 g/dL (13.0-17.5); LYMPH # 0.8 x10^3/uL (1.0-4.8); LYMPH % 15 % (24-48); MEAN CORPUSCULAR HEMOGLOBIN 31 pg (25-35); MEAN CORPUSCULAR HGB CONC 32 g/dL (31-37); MEAN CORPUSCULAR VOLUME 97 fL (79-100); MONO # 0.9 x10^3/uL (0.0-1.1); MONO % 17 % (0-9); NEUT # 3.6 x10^3/uL (1.8-7.7); NEUT % 65 % (31-73); PLATELET COUNT 225 x10^3/uL (140-400); RED BLOOD COUNT 3.79 x10^6/uL (4.30-5.70); RED CELL DISTRIBUTION WIDTH 16.3 % (11.5-14.5); WHITE BLOOD COUNT 5.6 x10^3/uL (4.0-11.0)
[2021-10-20 08:47] LABS: CALCIUM 8.9 mg/dL (8.5-10.1); GFR 91.3
[2021-10-20 08:53] LABS: ALBUMIN 3.6 g/dL (3.4-5.0); ALBUMIN/GLOBULIN RATIO 0.9 (1.0-1.7); TOTAL BILIRUBIN 0.2 mg/dL (0.2-1.0); TOTAL PROTEIN 7.5 g/dL (6.4-8.2)
== END ==
LOC: ONCLAB 08:10
PROVIDERS: ATTEND Internal Medicine Hematology & Oncology
DX: C83.39 Diffuse large B-cell lymphoma, extranodal and solid organ sites (principal)
CPT/HCPCS: 36415; 80053; 83615; 85025

== ENCOUNTER → 2021-10-30 | Outpatient (CLI) | payer MEDICAID ==
[2021-06-24 11:00] VITALS: BP 135/70
[2021-10-30 09:29] LABS: BASO # 0.1 x10^3/uL (0.0-0.2); BASO % 1 % (0-3); EOS # 0.2 x10^3/uL (0.0-0.7); EOS % 2 % (0-3); HEMATOCRIT 34.5 % (39.0-53.0); HEMOGLOBIN 11.1 g/dL (13.0-17.5); LYMPH # 0.9 x10^3/uL (1.0-4.8); LYMPH % 7 % (24-48); MEAN CORPUSCULAR HEMOGLOBIN 31 pg (25-35); MEAN CORPUSCULAR HGB CONC 32 g/dL (31-37); MEAN CORPUSCULAR VOLUME 97 fL (79-100); MONO # 1.5 x10^3/uL (0.0-1.1); MONO % 12 % (0-9); NEUT # 9.5 x10^3/uL (1.8-7.7); NEUT % 78 % (31-73); PLATELET COUNT 58 x10^3/uL (140-400); RED BLOOD COUNT 3.56 x10^6/uL (4.30-5.70); RED CELL DISTRIBUTION WIDTH 15.9 % (11.5-14.5); WHITE BLOOD COUNT 12.2 x10^3/uL (4.0-11.0)
[2021-10-30 09:42] LABS: CREATININE 0.9 mg/dL (0.7-1.3); GFR 103.1; POTASSIUM 3.4 mmol/L (3.5-5.1)
[2021-10-30 09:48] LABS: ALBUMIN 3.6 g/dL (3.4-5.0); TOTAL BILIRUBIN 0.3 mg/dL (0.2-1.0); TOTAL PROTEIN 7.1 g/dL (6.4-8.2)
[2021-10-30 11:46] LABS: % BANDS 18 % (0-9); % EOS 1 % (0-5); % LYMPHS 4 % (24-48); % METAS 4 % (0-0); % MONOS 14 % (0-10); % SEGS 59 % (35-66); ANISOCYTOSIS SLIGHT; PLT ESTIMATE DECREASED (ADEQUATE)
[2021-10-30 11:47] LABS: TOXIC GRANULATION PRESENT
== END ==
LOC: ONCLAB 08:44
PROVIDERS: ATTEND Internal Medicine Hematology & Oncology
DX: R59.9 Enlarged lymph nodes, unspecified (principal)
CPT/HCPCS: 36415; 80053; 85007; 85025

== ENCOUNTER → 2021-10-31 | Outpatient (CLI) | payer MEDICAID ==
[2021-06-24 11:00] VITALS: BP 135/70
--- NOTE | 2021-10-31 17:15 | CARD ---
MR#: [id number] Date of Study: 10/31/2021 Ordering Physician: BREANNE DEY, Referring Physician: BREANNE DEY, Tech: APPROVED REPORT EXAM: Two-dimensional and M-mode echocardiogram with Doppler and color Doppler. Other Information Quality : GoodHR: 70bpm Rhythm : NSR INDICATION Chest Pain RISK FACTORS Hypertension 2D DIMENSIONS RVDd3.7 (2.9-3.5cm)Left Atrium(2D)3.9 (1.6-4.0cm) IVSd1.3 (0.7-1.1cm)Aortic Root(2D)4.2 (2.0-3.7cm) LVDd4.8 (3.9-5.9cm)LVOT Diameter2.3 (1.8-2.4cm) PWd1.3 (0.7-1.1cm)LVDs3.2 (2.5-4.0cm) FS (%) 33.9 %SV68.3 ml Aortic Valve AoV Peak Avinash.130.2cm/sAoV VTI27.4cm AO Peak GR.6.8mmHgLVOT Peak Avinash.95.9cm/s AO Mean GR.3mmHgAVA (VMAX)3.10cm2 Mitral Valve MV E Vpddgnko41.7cm/sMV DECEL [id number] MV A Dimliqih64.3cm/sE/A Ratio0.9 Pulmonary Valve PV Peak Uhdjygsp16.2cm/s Tricuspid Valve TR P. Mwxakgst845oz/sTR Peak Gr.35mmHg LEFT VENTRICLE The left ventricle is normal size. There is mild concentric left ventricular hypertrophy. The left ve ntricular systolic function is low normal. LV ejection fraction is 50 to 52%. There is normal LV se gmental wall motion. Transmitral Doppler flow pattern is Grade I-abnormal relaxation pattern. RIGHT VENTRICLE The right ventricle is normal size. There is normal right ventricular wall thickness. The right ventr icular systolic function is normal. ATRIA The left atrium is mildly dilated. The right atrium size is normal. The interatrial septum is intact with no evidence for an atrial septal defect or patent foramen ovale as noted on 2-D or Doppler imagi ng. AORTIC VALVE The aortic valve is normal in structure and function. Doppler and Color Flow revealed no significant aortic regurgitation. There is no significant aortic valvular stenosis. MITRAL VALVE The mitral valve is normal in structure and function. There is no evidence of mitral valve prolapse. There is no mitral valve stenosis. Doppler and Color-flow revealed mild mitral regurgitation. TRICUSPID VALVE The tricuspid valve is normal in structure and function. Doppler and Color Flow revealed mild tricusp id regurgitation. Estimated PAP 32 mmHG. There is no tricuspid valve stenosis. PULMONIC VALVE The pulmonary valve is normal in structure and function. Doppler and Color Flow revealed no pulmonic valvular regurgitation. GREAT VESSELS The aortic root is mildly enlarged. The ascending aorta is mildly dilated. The IVC is dilated and col lapses <50% with inspiration. PERICARDIAL EFFUSION There is no evidence of significant pericardial effusion. Critical Notification Critical Value: No <Conclusion> The left ventricle is normal size. The left ventricular systolic function is low normal. LV ejection fraction is 50 to 52%. There is mild concentric left ventricular hypertrophy. Doppler and Color Flow revealed no significant aortic regurgitation. There is no significant aortic valvular stenosis. Doppler and Color-flow revealed mild mitral regurgitation. Doppler and Color Flow revealed mild tricuspid regurgitation. Estimated PAP 32 mmHG. The aortic root is mildly enlarged. Signed by : Luis Martinez MD Electronically Approved : 10/31/2021 17:15:10
== END ==
LOC: ECHO 08:25
PROVIDERS: ATTEND Internal Medicine Hematology & Oncology
DX: I08.1 Rheumatic disorders of both mitral and tricuspid valves (principal); I77.810 Thoracic aortic ectasia; Z51.81 Encounter for therapeutic drug level monitoring
CPT/HCPCS: 93306; C8929

== ENCOUNTER → 2021-11-13 | Outpatient (CLI) | payer MEDICAID ==
[2021-06-24 11:00] VITALS: BP 135/70
[2021-11-13 08:40] LABS: BASO # 0.1 x10^3/uL (0.0-0.2); BASO % 2 % (0-3); EOS # 0.1 x10^3/uL (0.0-0.7); EOS % 2 % (0-3); HEMATOCRIT 38.4 % (39.0-53.0); HEMOGLOBIN 12.4 g/dL (13.0-17.5); LYMPH # 1.1 x10^3/uL (1.0-4.8); LYMPH % 25 % (24-48); MEAN CORPUSCULAR HEMOGLOBIN 31 pg (25-35); MEAN CORPUSCULAR HGB CONC 32 g/dL (31-37); MEAN CORPUSCULAR VOLUME 97 fL (79-100); MONO # 1.1 x10^3/uL (0.0-1.1); MONO % 25 % (0-9); NEUT # 2.1 x10^3/uL (1.8-7.7); NEUT % 46 % (31-73); PLATELET COUNT 285 x10^3/uL (140-400); RED BLOOD COUNT 3.97 x10^6/uL (4.30-5.70); RED CELL DISTRIBUTION WIDTH 16.1 % (11.5-14.5); WHITE BLOOD COUNT 4.5 x10^3/uL (4.0-11.0)
[2021-11-13 08:42] LABS: CALCIUM 8.9 mg/dL (8.5-10.1); CREATININE 0.9 mg/dL (0.7-1.3); GFR 103.1; POTASSIUM 4.2 mmol/L (3.5-5.1)
[2021-11-13 08:49] LABS: ALBUMIN 3.5 g/dL (3.4-5.0); ALBUMIN/GLOBULIN RATIO 0.9 (1.0-1.7); TOTAL BILIRUBIN 0.4 mg/dL (0.2-1.0); TOTAL PROTEIN 7.3 g/dL (6.4-8.2)
[2021-11-13 10:47] LABS: % ATYL 1 % (0-0); % BANDS 6 % (0-9); % BASOS 2 % (0-3); % EOS 3 % (0-5); % LYMPHS 27 % (24-48); % MONOS 21 % (0-10); % SEGS 40 % (35-66); PLT ESTIMATE ADEQUATE (ADEQUATE)
[2021-11-13 10:48] LABS: ANISOCYTOSIS SLIGHT; OVALOCYTES FEW
== END ==
LOC: ONCLAB 08:13
PROVIDERS: ATTEND Internal Medicine Hematology & Oncology
DX: C83.39 Diffuse large B-cell lymphoma, extranodal and solid organ sites (principal)
CPT/HCPCS: 36415; 80053; 83615; 85007; 85025

== ENCOUNTER 2021-11-27 12:49 | Inpatient (IN) | payer MEDICAID ==
[~2021-11-27] VITALS: Ht 180.3 cm; Wt 68.1 kg
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
[2021-11-27 13:45] LABS: BASO # 0.1 x10^3/uL (0.0-0.2); BASO % 1 % (0-3); EOS # 0.1 x10^3/uL (0.0-0.7); EOS % 2 % (0-3); HEMATOCRIT 41.2 % (39.0-53.0); HEMOGLOBIN 13.8 g/dL (13.0-17.5); LYMPH % 17 % (24-48); MEAN CORPUSCULAR HEMOGLOBIN 32 pg (25-35); MEAN CORPUSCULAR HGB CONC 34 g/dL (31-37); MEAN CORPUSCULAR VOLUME 96 fL (79-100); MONO # 0.6 x10^3/uL (0.0-1.1); MONO % 9 % (0-9); NEUT # 4.3 x10^3/uL (1.8-7.7); NEUT % 71 % (31-73); PLATELET COUNT 174 x10^3/uL (140-400); RED BLOOD COUNT 4.27 x10^6/uL (4.30-5.70); RED CELL DISTRIBUTION WIDTH 14.9 % (11.5-14.5); WHITE BLOOD COUNT 6.2 x10^3/uL (4.0-11.0)
[2021-11-27] MEDS ORDERED: fentaNYL PF VIAL 100 MCG/2 ML VIAL IVP ONE (13:45)
[2021-11-27 14:03] LABS: CALCIUM 8.9 mg/dL (8.5-10.1); GFR 91.3; POTASSIUM 3.9 mmol/L (3.5-5.1); PROTHROMBIN TIME PATIENT 12.6 SEC (11.7-14.0)
--- NOTE | 2021-11-27 14:12 | RAD ---
US RIGHT LOWER EXTREMITY ARTERIAL DUPLEX EVAL Indication: Reason: RIGHT LEG PAIN, HX OF VASCULAR DISEASE / Spl. Instructions: / History: Comparison: None. Procedure: Real-time grayscale, color flow Doppler, and Doppler spectral waveform analysis of the art erial system of the lower extremity is performed. Findings: Right lower extremity: Occlusion of the deep femoral artery. Monophasic waveforms throughout the righ t lower extremity with decreased velocity. Moderate atheromatous plaque. Dorsalis pedis artery not id entified. IMPRESSION: 1. Monophasic waveforms throughout the right lower extremity with decreased velocity, may indicate a ortoiliac stenosis. Recommend CT angiogram to further assess. 2. Right deep femoral artery occlusion. 3. Dorsalis pedis artery not identified, may relate to occlusion. Electronically signed by: Andrew Elias DO (11/27/2021 2:10 PM) [facility]
--- NOTE | 2021-11-27 14:22 | EKG ---
[facility] [address] [place] [id number] Test Date: 2020-11-27 Test Time: 14:08:15 Pat Name: CANDY CERVANTES Department: Room: Gender: M [employer]: : 1960 Requested By: MAKSIM DAWN Order Number: [id number] Reading MD: Measurements Intervals [place] Rate: 63 P: 90 MS: 214 QRS: -71 QRSD: 94 T: 61 QT: 408 QTc: 421 Interpretive Statements SINUS RHYTHM ABNORMAL LEFT AXIS DEVIATION R-S TRANSITION ZONE IN V LEADS DISPLACED TO THE RIGHT LEFT ANTERIOR FASCICULAR BLOCK ABNORMAL ECG RI6.02 No previous ECG available for comparison
[2021-11-27] MEDS ORDERED: IOHEXOL 350 MG/ML 100 ML VIAL. IV ONE (15:00)
[2021-11-27] MEDS ORDERED: CONTRAST GIVEN. MC PRN (15:00)
[2021-11-27] MEDS ORDERED: HEPARIN for IV BOLUS 10,000 UNIT/10 ML VIAL. IV PRN ×2 (15:45)
--- NOTE | 2021-11-27 15:57 | RAD ---
STUDY: CT angiography of the aorta with runoff INDICATION: Right leg pain, abnormal ultrasound, history of vascular disease. COMPARISON: Right lower extremity arterial ultrasound 11/27/[address] chest abdomen pelvis to 422 TECHNIQUE: Helical CT angiography of the abdominal aorta with runoff through the bilateral lower extr emities. Multiplanar reconstructions were obtained to include 3D MIP reconstructions. Imaging was per formed after the intravenous administration of 100 mL Omnipaque 350. One or more of the following individualized dose reduction techniques were utilized for this examinat ion: 1. Automated exposure control 2. Adjustment of the mA and/or kV according to patient size 3. Use of iterative reconstruction technique. FINDINGS: VASCULATURE: The aorta is normal in caliber. There is moderate calcified aortoiliac atherosclerosis. The celiac an d superior mesenteric artery origins are patent. The renal artery origins are patent. There is suspec kenney focal severe narrowing of the right renal artery 1.3 cm distal to the origin. The inferior mesent pedro artery origin is patent. The right iliac arteries are normal in caliber. There is mild to moderate narrowing of the right comm on iliac artery. There is acute appearing complete occlusion of the entire right external iliac arter y, new from 09/12/2021. The right internal iliac artery is diffusely narrowed. There is reconstitution of flow in right common femoral artery by collateral vessels. There are surgi migdalia changes of the right common femoral artery with surrounding soft tissue density and surgical clip s. A 9 mm outpouching from the distal right common femoral artery may be postsurgical or a pseudoaneu rysm (image 122, series 3). There is moderate narrowing of the proximal right superficial femoral art khang. The right profunda femora is artery is small and only intermittently opacified. There is moderate narrowing of the right popliteal artery distally due to calcifications. The right t ibial peroneal trunk is patent. Three-vessel runoff below the knee is patent although the peroneal ar jessica is small. The left iliac arteries are normal in caliber. There is mild to moderate narrowing of the left common iliac artery, greatest distally. Mild narrowing of the left external iliac artery. There is mild vivi rowing of the left internal iliac artery due to calcified and noncalcified atherosclerosis. Mild scattered narrowing of the left common femoral and superficial femoral arteries due to calcified and noncalcified atherosclerosis. The left profunda femoris artery is patent. Mild narrowing of the distal left popliteal artery. The left tibial peroneal trunk is patent. Three-vessel runoff is patent proximally but peroneal artery becomes diminutive in the mid to distal calf. ABDOMEN/PELVIS/EXTREMITIES: There are peripheral opacities in the right greater than left lower lobes, nonspecific. The heart is normal in size. The liver, pancreas, and adrenal glands are normal. The gallbladder is surgically abs ent. Calcifications along the surface of the spleen are unchanged and may be sequela of old injury. K idneys are normal in size and enhance symmetrically. No hydronephrosis. Bladder is normal. The stomac h, small bowel, and colon are unremarkable. There are surgical changes of the small bowel. No free fl uid or free air. No new lymphadenopathy. No ascites or free air. There is degenerative disc disease a t L4-L5 and L5-S1. IMPRESSION: 1. Acute occlusion of the right external iliac artery, new from 09/12/2021. Reconstitution of flow in t he right common femoral artery by collateral vessels. 2. Diminutive flow in the right profundus femoris artery which is only intermittently opacified. 3. Surgical changes in the right groin with soft tissue thickening around the right common femoral ar jessica and adjacent surgical elissa. There is a 9 mm saccular outpouching from the distal right common femoral artery that could be a pseudoaneurysm or postsurgical. 4. Bilateral peripheral arterial disease as described. 5. Severe stenosis of the right renal artery 1.3 cm distal to the origin. FOR INTERNAL CODING PURPOSES Critical result: Findings discussed with MAKSIM DAWN APRN at 11/27/2021 3:34 PM. RESULT CODE: (C) Electronically signed by: Ashlee Fonseca MD (11/27/2021 3:55 PM) [id number]
[2021-11-27] MEDS ORDERED: HEPARIN for IV BOLUS 10,000 UNIT/10 ML VIAL. IV ONE (16:00)
[2021-11-27] MEDS ORDERED: fentaNYL PF VIAL 100 MCG/2 ML VIAL IVP PRN (16:00)
[2021-11-27] MEDS ORDERED: HEPARIN 25,000UTS/250ML PREMIX 250 ML IV PRN (16:00)
[2021-11-27] MEDS ORDERED: ONDANSETRON PF 4 MG/2 ML VIAL. IVP PRN ×2 (16:00→18:15)
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
[2021-11-27 17:25] VITALS: BP 169/89
[2021-11-27] MEDS ORDERED: MONT10TA49 PO (18:04)
[2021-11-27] MEDS ORDERED: MORPHINE SULFATE 2 MG/ML INJ. IV PRN ×2 (18:15)
[2021-11-27] MEDS ORDERED: ACETAMINOPHEN 325 MG TABLET. PO PRN (18:15)
[2021-11-27] MEDS ORDERED: CALCIUM CARBONATE 500 MG TAB.CHEW PO PRN (18:15)
[2021-11-27] MEDS ORDERED: ELECTROLYTE (NON-ICU) PROTOCOL. MC PRN (18:15)
[2021-11-27 19:06] VITALS: BP 161/81
--- NOTE | 2021-11-27 19:23 | PDOC ---
Provider Note Date of Service: DATE: 11/27/21 TIME: 19:18 Provider Note Vascular consult dictated Impression: #1 subacute arterial insufficiency of the right lower extremity due to right external iliac occlusion. His symptoms have been ongoing for over a month. He does not complain of rest pain but severe claudication. He has Doppler flow in the foot by hand-held Doppler over both the dorsal pedal and posterior tibial arteries. CT with contrast performed in September of this year demonstrated a patent external iliac artery. 2. History of dyslipidemia, hypertension and diabetes 3. History of tobaccoism 4. History of lymphoma with recent completion of chemotherapy 5. History of surgical intervention right groin of unclear nature, performed at [facility] in the past. Recommendation: #1 the patient is a candidate for revascularization of the right leg do to near limb threatening ischemia which is not acute. I recommend femoral exploration with possible external iliac thrombectomy, possible need for stent placement versus femoral to femoral bypass. We will schedule when there is OR time and surgeon availability. Discussed the above thoroughly with the patient. He expresses understanding and wishes to proceed. We will continue heparin drip until surgery can be scheduled. Justifications for Admission Other Justification ARACELI LY II, MD Nov 27, 2021 19:23
[2021-11-27] MEDS: SENNOSIDES/DOCUSATE 8.6/50MG TABLET. PO SCH (20:14)
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
[2021-11-27 22:39] VITALS: BP 124/74
[2021-11-28 02:25] VITALS: BP 147/84
--- NOTE | 2021-11-28 02:27 | CONS ---
DATE OF CONSULTATION: 11/27/2021 VASCULAR CONSULTATION CLINICAL HISTORY: This is a 61-year-old gentleman who presents to the Emergency Room complaining of a 1-month history or more of right leg pain when he walks. He states he can only walk about 20 or 30 feet and that his symptoms have been ongoing for the past month. His risk factors include tobaccoism, diabetes, hypertension. He denies rest pain in his foot. He had some sort of intervention via a right groin incision and he thinks that this was done at several years ago. He does have a history of lymphoma and just completed a course of chemotherapy. The patient underwent CT angiography, which demonstrates occlusion of the right external iliac artery with reconstitution of the common femoral artery with patency of vessels distally. REVIEW OF SYSTEMS: Other than severe claudication in his right leg, the review of systems is negative. He specifically denies chest pain, recent history of stroke, amaurosis or TIA. CURRENT MEDICATIONS: Reviewed. ALLERGIES: None known. SOCIAL HISTORY: The patient smokes cigarettes. FAMILY HISTORY: Noncontributory. PHYSICAL EXAMINATION: GENERAL: The patient is alert and awake. He is in no distress. HEENT: Unremarkable. Normocephalic, atraumatic. NECK: Carotids are 2+. CHEST: Clear. ABDOMEN: Soft and nontender. EXTREMITIES: He has 2+ palpable left femoral, popliteal and posterior tibial pulse. On the right, he has absent right femoral, popliteal and pedal pulse. The right foot is warm and appears adequately perfused and neuromotor examination is normal. He does have monophasic arterial Doppler flow over both the dorsal pedal and posterior tibial arteries by handheld Doppler examined at the bedside. LABORATORY EVALUATION: White count is 6,000, hemoglobin is 13.8. Creatinine is 1.0. IMPRESSION: 1. Subacute or chronic arterial insufficiency of the right leg due to right external iliac occlusion. His symptoms are not at this time limb threatening as he does continue to have Doppler flow in the foot and he denies rest pain. 2. He is status post some sort of intervention, which required an incision in the right groin. This is unclear. We will attempt to access records to see if this can be clarified any further. 3. History of tobaccoism. 4. History of hyperlipidemia, hypertension and diabetes. 5. History of lymphoma. The patient just recently completed a course of chemotherapy. RECOMMENDATIONS: I recommend right femoral exploration with thrombectomy if possible with possible retrograde iliac stent placement versus fem-fem bypass. The timing of the procedure is not emergent as the patient has had symptoms for over a month and he does have Doppler flow in the foot and he denies rest pain. We will schedule when there is OR and surgeon availability. I discussed all the above with the patient and he understands and wishes to proceed. In the meantime, we will continue heparinization of the patient to prevent further thrombotic events. RACQUEL DR: Marjorie TID: [id number]
[2021-11-28 07:00] VITALS: BP 149/90
[2021-11-28] MEDS: SENNOSIDES/DOCUSATE 8.6/50MG TABLET. PO SCH (07:57)
[2021-11-28] MEDS ORDERED: HYDROcodone/APAP 5/325MG 1 TAB TABLET PO PRN ×3 (09:00)
[2021-11-28] MEDS ORDERED: GABAPENTIN 300 MG CAPSULE. PO SCH (09:00)
[2021-11-28] MEDS ORDERED: METOPROLOL SUCC 24HR ER 25 MG TAB.ER.24H. PO SCH (09:00)
[2021-11-28] MEDS ORDERED: ALPRAZolam 1 MG TABLET PO PRN (09:00)
[2021-11-28] MEDS ORDERED: PANTOPRAZOLE 40 MG TABLET.DR. PO SCH (09:00)
[2021-11-28] MEDS ORDERED: HYDR-2761 PO (10:22)
[2021-11-28 11:00] VITALS: BP 141/82
--- NOTE | 2021-11-28 11:20 | NUR ---
SS following for discharge planning. SS reviewed pt chart and discussed with pt RN. Pt is from home and is currently on room air. Discharge order on the chart for home with self care. Pt needing transportation to home. Pt will discharge to home at 1200 via [facility] transport, [id number]. Pt's RN notified.
--- NOTE | 2021-11-28 11:55 | NUR ---
Discharge instructions reviewed with patient. Also reviewed surgery instructions for procedure on Wednesday. Patient voices understanding et denies needs or concerns at this time. IV removed from LFA with cannula intact et telemetry box removed from patient. patient has no other concerns at this time.
--- NOTE | 2021-11-28 12:14 | NUR ---
Patient escorted out to facility van by transportation. All belongings taken with patient at time of discharge.
[2021-11-28] MEDS ORDERED: MONTELUKAST SODIUM 10 MG TABLET. PO SCH (21:00)
--- NOTE | 2021-11-30 17:57 | PDOC3 ---
[facility]-Discharge Summary Date of Admission: Date of Admission: Nov 27, 2021 Date of Discharge: Date of Discharge: Nov 28, 2021 Admission Diagnosis: Admitting Diagnosis: external iliac thrombosis Consults: Consults: vascular surgery Hospital Course: Hospital Course: HPI: Patient is a 61-year-old male presented to the emergency room today due to right leg pain and claudication. Has a history of arterial disease in this leg and a couple of years ago had stents placed at and his symptoms improved after that. Said symptoms that have brought him in today are very similar to the ones he was experiencing prior to that procedure. Patient's current pain has been going on for about a month now. Has gotten to the point where he cannot walk much more than 20 feet before having to stop due to the pain in his leg. Of note continues to smoke tobacco daily. Recently finished lymphoma chemotherapy treatment. In the emergency room CT scan showed acute occlusion right external iliac but flow reconstituted in common femoral. When I evaluated the patient he was resting in bed complaining of more so pain all over not just his leg. Vascular surgery consulted 11/28 Patient evaluated examined at bedside. Surgery planned for Wednesday and confirmed with vascular surgery patient does not need to stay here through the weekend. Discharge today instructions given regarding surgery Wednesday. Greater than 30 minutes spent on the discharge. 22 minutes advance care planning. Disposition: Disposition/Orders: D/C to Home Activity: Activity: Resume previous activity Diet: Diet: Cardiac Medications: Home Meds Active Scripts Hydrocodone Bit/Acetaminophen (HYDROCODONE-APAP 5-325 ) 1 Tab Tablet, 1 TAB PO PRN Q4HRS PRN for PAIN for 3 Days, #10 TAB Prov:HE OAKLEY MD 11/28/21 Albuterol Sulfate (PROAIR HFA INHALER) 8.5 Gm Hfa.aer.ad, 2 PUFF IH PRN Q4-6HRS PRN for wheezing for 21 Days, #1 INHALER 0 Refills Prov:SAIDA GAN DO 08/12/19 Reported Medications Montelukast Sodium (SINGULAIR TABLET ) 10 Mg Tablet, 10 MG PO HS for FOR ASTHMA, TAB 0 Refills 11/27/21 Gabapentin (GABAPENTIN ) 300 Mg Capsule, 300 MG PO BID for NEUROGENIC PAIN, CAP 05/23/21 Omeprazole (OMEPRAZOLE) 40 Mg Capsule.dr, 40 MG PO DAILY for gerd, CAP 05/23/21 Amlodipine Besylate (AMLODIPINE BESYLATE) 10 Mg Tablet, 10 MG PO DAILY, TAB 11/22/17 Alprazolam (XANAX) 0.25 Mg Tablet, 1 MG PO PRN Q6HRS PRN for ANXIETY / AGITATION, TAB 0 Refills 11/11/17 Metoprolol Succinate (METOPROLOL SUCCINATE ( XL )) 25 Mg Tab.er.24h, 25 MG PO DAILY for FOR HYPERTENSION, #30 TAB 0 Refills 11/11/17 Discontinued Scripts Hydrocodone/Acetaminophen (Hydrocodone-Acetamin 5-325 mg) 1 Each Tablet, 1-2 EACH PO Q4-6HRS PRN for PAIN for 5 Days, #20 TAB 0 Refills Prov:HEAVEN ENRIQUEZ MD 05/26/21 Scheduled Amlodipine Besylate (Amlodipine Besylate), 10 MG PO DAILY, (Reported) Gabapentin (Gabapentin ), 300 MG PO BID, (Reported) Metoprolol Succinate (Metoprolol Succinate ( Xl )), 25 MG PO DAILY, (Reported) Montelukast Sodium (Singulair Tablet ), 10 MG PO HS, (Reported) Omeprazole (Omeprazole), 40 MG PO DAILY, (Reported) Scheduled PRN Albuterol Sulfate (Proair Hfa Inhaler), 2 PUFF IH PRN Q4-6HRS PRN for wheezing Alprazolam (Xanax), 1 MG PO PRN Q6HRS PRN for ANXIETY / AGITATION, (Reported) Hydrocodone Bit/Acetaminophen (Hydrocodone-Apap 5-325 ), 1 TAB PO PRN Q4HRS P RN for PAIN Discontinued Medications Hydrocodone/Acetaminophen (Hydrocodone-Acetamin 5-325 mg), 1-2 EACH PO Q4-6HRS PRN for PAIN Justicifation of Admission Dx: Justifications for Admission: Justification of Admission Dx: N/A HE OAKLEY MD Nov 30, 2021 17:56
== END 2021-11-28 12:05 | disposition home or self-care (01) | DRG 300 ==
LOC: ER 12:49 → 6 SOUTH 15:45
PROVIDERS: ADMIT Student in an Organized Health Care Education/Training Program; ATTEND Student in an Organized Health Care Education/Training Program
DX: I74.5 Embolism and thrombosis of iliac artery (principal); C85.90 Non-Hodgkin lymphoma, unspecified, unspecified site; E11.51 Type 2 diabetes mellitus with diabetic peripheral angiopathy without gangrene; Z79.01 Long term (current) use of anticoagulants; E78.5 Hyperlipidemia, unspecified; F17.210 Nicotine dependence, cigarettes, uncomplicated; I10 Essential (primary) hypertension; I70.1 Atherosclerosis of renal artery; I70.209 Unspecified atherosclerosis of native arteries of extremities, unspecified extremity; I77.1 Stricture of artery; Z20.822 Contact with and (suspected) exposure to COVID-19; Z92.21 Personal history of antineoplastic chemotherapy
CPT/HCPCS: 36415; 75635; 80048; 84484; 85025; 85520; 85610; 85730; 87426; 93005; 93926; J1644; J2270; J3010; Q9967; U0003; G0378

== ENCOUNTER 2021-12-04 08:35 | Inpatient (IN) | payer MEDICAID ==
[~2021-12-04] VITALS: Ht 180.3 cm; Wt 61.9 kg
[2021-12-04] VITALS (8 sets, daily range): BP systolic 108–143; BP diastolic 56–85
[~2021-12-04 08:35] MED LIST changes: +HEPARIN SODIUM 5,000 UNIT in IV NORMAL SALINE 500ML BAG 500 ML IRR ONE; +HYDR-2761 PO; +MONT10TA49 PO; +PROCHLORPERAZINE 10 MG/2 ML VIAL. IVP PRN; +fentaNYL PF VIAL 100 MCG/2 ML VIAL IVP PRN
[2021-12-04] MEDS ORDERED: ASPI-630 PO (09:03)
[2021-12-04] MEDS: IV RINGERS,LACTATED 1000ML 1,000 ML IV SCH ×2 (09:28→17:44)
[2021-12-04 09:30] LABS: BASO % 1 % (0-3); EOS # 0.3 x10^3/uL (0.0-0.7); EOS % 7 % (0-3); HEMATOCRIT 39.2 % (39.0-53.0); HEMOGLOBIN 13.1 g/dL (13.0-17.5); LYMPH # 0.9 x10^3/uL (1.0-4.8); LYMPH % 19 % (24-48); MEAN CORPUSCULAR HEMOGLOBIN 32 pg (25-35); MEAN CORPUSCULAR HGB CONC 33 g/dL (31-37); MEAN CORPUSCULAR VOLUME 97 fL (79-100); MONO # 0.5 x10^3/uL (0.0-1.1); MONO % 10 % (0-9); NEUT % 63 % (31-73); PLATELET COUNT 168 x10^3/uL (140-400); RED BLOOD COUNT 4.06 x10^6/uL (4.30-5.70); RED CELL DISTRIBUTION WIDTH 15.1 % (11.5-14.5); WHITE BLOOD COUNT 4.8 x10^3/uL (4.0-11.0)
[2021-12-04 09:37] LABS: CALCIUM 8.9 mg/dL (8.5-10.1); GFR 91.3
[2021-12-04 09:43] LABS: ALBUMIN 3.5 g/dL (3.4-5.0); ALBUMIN/GLOBULIN RATIO 0.8 (1.0-1.7); TOTAL BILIRUBIN 0.4 mg/dL (0.2-1.0); TOTAL PROTEIN 8.1 g/dL (6.4-8.2)
[2021-12-04] MEDS ORDERED: ONDANSETRON PF 4 MG/2 ML VIAL. ONE (10:05)
[2021-12-04] MEDS ORDERED: SEVOFLURANE > 120 MINUTES. IH ONE (10:05)
[2021-12-04] MEDS ORDERED: PHENYLEPHRINE 10 MG/ML VIAL. ONE (10:05)
[2021-12-04] MEDS ORDERED: DEXAMETHASONE SOD PHOS 4 MG/ML VIAL ONE (10:05)
[2021-12-04] MEDS ORDERED: PROPOFOL 10 MG/ML (20ML) VIAL. IV ONE (10:05)
[2021-12-04] MEDS ORDERED: fentaNYL PF VIAL 100 MCG/2 ML VIAL ONE (10:06)
[2021-12-04] MEDS ORDERED: PROTAMINE 50 MG/5 ML VIAL. IV ONE (10:06)
[2021-12-04] MEDS ORDERED: HEPARIN for IV BOLUS 10,000 UNIT/10 ML VIAL. ONE ×2 (10:06→14:51)
[2021-12-04] MEDS ORDERED: KETAMINE HCL IN NACL, ISO-OSM 50 MG/5 ML SYRINGE ONE (10:06)
[2021-12-04] MEDS ORDERED: VASOPRESSIN 20 UNIT/ML VIAL. ONE (10:20)
[2021-12-04] MEDS ORDERED: IODIXANOL 320 MG/ML 100 ML VIAL. ONE (11:55)
[2021-12-04] MEDS ORDERED: LIDOCAINE 2% Multi-Dose 20 ML VIAL. ONE (11:56)
[2021-12-04] MEDS ORDERED: fentaNYL PF VIAL 250 MCG/5 ML VIAL ONE (13:39)
[2021-12-04] MEDS ORDERED: SURGICEL FIBRILLAR 1X2 EACH. ONE (16:13)
[2021-12-04] MEDS ORDERED: IODIXANOL 320 MG/ML 100 ML VIAL. IV ONE (16:30)
[2021-12-04] MEDS ORDERED: ALBUMIN HUMAN 5% 500 ML IV ONE (16:30)
[2021-12-04] MEDS ORDERED: 0.9 % SODIUM CHLORIDE 10 ML DISP.SYRIN. IV PRN (17:00)
[2021-12-04] MEDS ORDERED: diphenhydrAMINE 50 MG/ML VIAL IV PRN (17:00)
[2021-12-04] MEDS ORDERED: MAG HYDROX/ALUMINUM HYD/SIMETH 30 ML ORAL.SUSP PO PRN (17:00)
[2021-12-04] MEDS ORDERED: IBUPROFEN 400 MG TABLET. PO PRN (17:00)
[2021-12-04] MEDS ORDERED: HYDROmorphone 2 MG/ML INJ. IV PRN (17:00)
[2021-12-04] MEDS ORDERED: NALOXONE 0.4 MG/ML VIAL. IV PRN (17:00)
[2021-12-04] MEDS ORDERED: ONDANSETRON PF 4 MG/2 ML VIAL. IVP PRN (17:00)
[2021-12-04] MEDS ORDERED: diphenhydrAMINE HCL 25 MG CAPSULE PO PRN (17:00)
[2021-12-04] MEDS ORDERED: oxyCODONE IR 5 MG TABLET PO PRN (17:00)
[2021-12-04] MEDS ORDERED: ZOLPIDEM 5 MG TABLET. PO PRN (17:00)
[2021-12-04] MEDS ORDERED: MORPHINE SULFATE 2 MG/ML INJ. ONE (17:00)
[2021-12-04] MEDS ORDERED: CALCIUM CARBONATE 500 MG TAB.CHEW PO PRN (17:00)
[2021-12-04] MEDS: MORPHINE SULFATE 2 MG/ML INJ. IVP PRN ×2 (17:03→17:17)
[2021-12-04] MEDS ORDERED: HYDROmorphone 2 MG/ML INJ. ONE (17:14)
[2021-12-04] MEDS ORDERED: PROCHLORPERAZINE 10 MG/2 ML VIAL. ONE (17:14)
[2021-12-04] MEDS: HYDROmorphone 2 MG/ML INJ. IVP PRN ×2 (17:18→17:28)
[2021-12-04 17:23] LABS: BASO # 0.1 x10^3/uL (0.0-0.2); BASO % 0 % (0-3); EOS % 0 % (0-3); HEMATOCRIT 36.6 % (39.0-53.0); LYMPH # 0.5 x10^3/uL (1.0-4.8); LYMPH % 4 % (24-48); MEAN CORPUSCULAR HEMOGLOBIN 32 pg (25-35); MEAN CORPUSCULAR HGB CONC 33 g/dL (31-37); MEAN CORPUSCULAR VOLUME 97 fL (79-100); MONO # 0.2 x10^3/uL (0.0-1.1); MONO % 2 % (0-9); NEUT # 12.6 x10^3/uL (1.8-7.7); NEUT % 94 % (31-73); PLATELET COUNT 152 x10^3/uL (140-400); RED BLOOD COUNT 3.78 x10^6/uL (4.30-5.70); RED CELL DISTRIBUTION WIDTH 14.8 % (11.5-14.5); WHITE BLOOD COUNT 13.5 x10^3/uL (4.0-11.0)
--- NOTE | 2021-12-04 17:47 | PDOC4 ---
OPERATIVE NOTE Date: Date: Dec 04, 2021 Pre-Op Diagnosis: 1. Tobacco abuse 2. 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 Peripheral arterial disease Post-Op Diagnosis: same as preop Procedure Performed: 1. right ileofemoral thromboendarterectomy, redo groin incision. 2. Right profunda femoris thromboendarterectomy through separate arteriotomy 3. Right common iliac stenting with 10x39 VBX 4. Right external iliac stenting with 10x79 VBX and [id number] smart self expanding stent across hypogastric origin 5. Ultrasound guided access left common femoral artery 6. Introduction of catheter into aorta from left common femoral artery 7. thrombectomy of right external iliac artery Surgeon: Mary Jane Roa Hospitality Recruiter: Jeremy Miranda. His assistance was necessary given the complexity of the procedure related to redo groin dissection and need for extensive thrombo endarterectomy of the right common femoral and profunda femoris. Anesthesia Type: GETA Blood Loss: 500 cc Specimans Obtained: none Findings: There was occlusive thrombus within the distal external iliac artery and proximal common femoral artery at the area of previous patch angioplasty. Following external iliac thrombectomy there was residual disease in the common and external iliac arteries causing >50 % stenosis. Therefore the common and external iliac arteries were stented with VBX stents and a self expanding stent was used to bridge over the hypogastric origin with patent hypogastric artery seen on completion angiography. Complications: None Operative Note: The patient was brought to the hybrid room and positioned supine. General anesthesia induced. The abdomen and bilateral groins were prepped and draped in standard sterile fashion. Surgical timeout was performed and preoperative antibiotics confirmed. We then began with percutaneous access in the left groin. Given it had been 7 days since the previous CT scan repeat aortogram with limited rle angiogram was necessary to document patency of the right common femoral artery and superficial femoral artery. The left common femoral artery was accessed with significant difficulty under ultrasound guidance with a micropuncture needle. In order to pass a wire into the aorta I required 3 separate punctures with the micropuncture needle to gain access to the aorta due to signficant plaque in the external iliac artery and common femoral artery. I was then able to place a 0.035 glide advantage into the aorta through the micropuncture sheath. I then upsized to a 5 Fr sheath in the left groin with some difficulty. An omni flush catheter was then positioned in the aorta and this was maintained in the infrarenal aorta throughout the procedure in order to allow for further angiographic images. An abdominal aortogram and iliac artery angiogram including the right common femoral artery was then performed Aortogram demonstrated a patent infrarenal aorta with patent renal arteries proximally bilaterally. There was 60-70% stenosis of the right common and similar tandem stenoses of 60-70% in the left common iliac arteries and the left external iliac artery. There was occlusion of the right external iliac artery with reconstitution of the right common femoral artery just above the femoral bifurcation through a collateral from the patent but diseased hypogastric artery. The superficial femoral artery was widely patent at its origin. The profunda femoris was occluded at its origin on the right with distal reconstitution after several cm of profunda branches. 7000 Units of heparin was then administered with additional heparin given throughout the case to maintain therapeutic anticoagulation. An incision was made in the right groin over the previous scar. Dissection was taken down through scarred subcutaneous tissue and with difficulty given signficant scarring around the previous femoral endarterectomy were were able to identify the right common femoral artery and right superficial femoral artery. The proximal common femoral artery and proximal sfa were then clamped with angled debakey clamps. An anterior longitudinal arteriotomy was made over the previous bovine patch and we then encountered a significant amount of organized thrombus and fibrinous material causing occlusion of the common femoral artery. Thrombendarterectomy was performed of the common femoral artery initially adn this incision was closed with 5-0 prolene in running fashion. Repeat angiography demonstrated persistent thrombus in the external iliac artery and persistent occlusion of the profunda femoris. We then did further dissection proximally to expose the distal external iliac artery at the inguinal ligament. We likewise were able to expose the proximal profunda femoris with signficant difficulty. The superficial femoral artery and external iliac artery were then occluded with angled vascular clamps. A new incision was made over the distal external iliac artery at the area of previous patching and further thrombectomy performed of more organized thrombus. We then passed a #4 leticia proximally into the right common iliac artery and performed thrombectomy of the external iliac artery with return of signficant amoutns of well formed thrombus with additional passes performed until no further clot returned and there was then a palpable pulse in the distal external iliac artery with pulsatile inflow. The external ilaic arteriotomy was then closed with a 2 cm length piece of bovine pericardial patch with 6-0 prolene in standard running fashion. Flow was then restored to the right common femoral artery. We then completed further dissection of the profunda. We then again occluded the [employer] RECORDER and SFA with angled vascular clamps and performed an arteriotomy on the profunda femoris over the area of previous patch angioplasty. Again significant organized thrombus was then removed. A 3 leticia catheter was passed distally with return of thrombus and there was then significant backbleeding from the profunda. A 3 leticia was then used for control of bleeding from the profunda. This arteriotomy was again closed with a bovine patch of approximately 4 cm in length using 6-0 prolene. Flow was again restored to the right lower extremity. Repeat angiography demonstrated no persistent stenosis of the distal external iliac artery and 60-70% residual stenosis of the proximal external iliac artery at the iliac bifurcation and evidence of >60% stenosis fo the right common iliac artery. There was improved flow through the profunda with no residual stenosis in the first 2-3 cm but there remained signficant 80-90% stenosis in the distal branches. Given the difficulty with exposure and the need for balloon control of the profunda it was felt that further attempts at intervention on the profunda would be perilous. We then turned our attention to the iliac artery inflow disease on the right. AN 8 FR sheath was placed in the right common femoral artery and the lesions crossed retrograde without difficulty with a bentson wire. A marker catheter was then positioned across the right iliac system and angiography performed to perform measurements. over an amplatz wire from the right common femoral artery, A 10 x79 VBX was placed in the right external ilaic artery covering from the femoral bifurcation to just above the deep epigastric collaterals treating the severe stenosis both in the proximal external iliac artery and the distal external iliac artery at the area of the origin of the previous bovine patch. A [id number] smartstent by [employer] was then deployed to treat severe stenosis covering the hypogastric origin but mainatining hypogastric flow with use of a bare metal stent. A 10x39 VBX was then deployed precisely at the origin of the right common iliac artery and extending to just above the hypogastric artery. The bare metal stent was then post dilated to 10 mm. Post intervention aortogram from the left common femoral artery access/omni catheter demonstrated no residual stenosis in the right common, external iliac arteries or right common femoral or SFA. There was maintained patency of the hypogastric artery and proximal common femoral artery collaterals. The sheath was then removed from the right femoral artery and the arteriotomy closed with 5-0 prolene with excellent hemostasis. Hemostasis was then assured and the wounds irrigated. There was a palpable pulse in the right proximal sfa and radio announcer. Protamine was then administered. The 5 Fr sheath was then removed after removing the catheter over a wire from the left groin and hemostasis was excellent after application of direct pressue. The righ groin wound was then irrigated and fibrillar placed and the right groin incision was then clsoed with 2-0 vicryl and 4-0 moncryl. Steri strips gauze and tegaderm were then applied. The patient was then trasnferred to recover in stable condition. MARY JANE ROA MD Dec 04, 2021 17:47
--- NOTE | 2021-12-04 18:12 | NUR ---
Patient arrived to room 670 via bed from PACU at 181. Patient drowsy but A&OX4. VSS. No complaints of pain at this time. R groin site CDI, warm, normal color. Will continue to monitor. Addendum: 12/04/21 at 1942 by AZEEM WRIGHT RN Dr. Almanza aware of consult & came to unit to see patient.
--- NOTE | 2021-12-04 19:03 | PDOC1 ---
History and Physical Date of Admission Date of Admission DATE: 12/04/21 TIME: 19:01 Identification/Chief Complaint Chief Complaint Right leg pain Source Source: Patient History of Present Illness History of Present Illness Mr Brown is a a 61yo male with PMHx smoker, HTN, PAD, lymphoma undergoing chemotherapy with comes in for right ileofemoral throm boendarterectomy, redo groin incision with a right profunda femoris thromboendarterectomy through separate arteriotomy, right common iliac stenting with 10x39 VBX, right external iliac stenting with 10x79 VBX and [id number] smart self expanding stent across hypogastric origin, and thrombectomy of right external iliac artery Historically has large B-cell lymphoma on chemotherapy status post Port-A-Cath placement right IJ 06/12/2021. He notes he thinks he was supposed to have chemotherapy today, however his right leg pain and recurrent arterial occlusive disease took priority for limb salvage. Seen bedside he notes his right leg pain is improved and his left leg pain, asking if he can get out of bed. Past Medical History Cardiovascular: HTN Past Surgical History Past Surgical History: Other (port a cath placement) Social History Smoke: 1 pack per day ALCOHOL: none Drugs: None Current Medications Current Medications Current Medications Heparin Sodium (Porcine) 5000 unit/Sodium Chloride 505 ml @ 505 mls/hr 1X ONCE IRR Last administered on 12/04/21at 13:55; Start 12/04/21 at 06:00; Stop 12/04/21 at 06:59; Status DC Cefazolin Sodium 1 gm/Sodium Chloride 500 ml @ 500 mls/hr 1X ONCE IRR Last ad ministered on 12/04/21at 13:55; Start 12/04/21 at 06:00; Stop 12/04/21 at 06:59; Status DC Fentanyl Citrate (Fentanyl 2ml Vial) 25 mcg PRN Q5MIN PRN IVP MILD PAIN 1-3; Start 12/04/21 at 06:00; Stop 12/04/21 at 20:00 Fentanyl Citrate (Fentanyl 2ml Vial) 50 mcg PRN Q5MIN PRN IVP MODERATE PAIN 4- 6; Start 12/04/21 at 06:00; Stop 12/04/21 at 20:00 Morphine Sulfate (Morphine Sulfate) 1 mg PRN Q10MIN PRN IVP SEVERE PAIN 7-10 Last administered on 12/04/21at 17:17; Start 12/04/21 at 06:00; Stop 12/04/21 at 20:00 Ringer's Solution 1,000 ml @ 30 mls/hr Q24H IV Last administered on 12/04/21at 17:44; Start 12/04/21 at 06:00; Stop 12/04/21 at 17:59; Status DC Hydromorphone HCl (Dilaudid) 0.5 mg PRN Q10MIN PRN IVP SEVERE PAIN 7-10, 2nd CHOICE Last administered on 12/04/21at 17:28; Start 12/04/21 at 06:00; Stop 12/04/21 at 20:00 Prochlorperazine Edisylate (Compazine) 5 mg PACU PRN PRN IVP NAUSEA, MRX1 Last administered on 12/04/21at 17:18; Start 12/04/21 at 06:00; Stop 12/04/21 at 20:00 Cefazolin Sodium/ Dextrose 50 ml @ 100 mls/hr 1X PREOP PRN IV PRIOR TO PROCEDURE; Start 12/04/21 at 06:00; Stop 12/04/21 at 18:00; Status DC Propofol (Diprivan) 200 mg STK-MED ONCE IV ; Start 12/04/21 at 10:05; Stop 12/04/21 at 15:49; Status DC Dexamethasone Sodium Phosphate (Decadron) 4 mg STK-MED ONCE .ROUTE ; Start 12/04/21 at 10:05; Stop 12/04/21 at 15:49; Status DC Ondansetron HCl (Zofran) 4 mg STK-MED ONCE .ROUTE ; Start 12/04/21 at 10:05; Stop 12/04/21 at 15:49; Status DC Phenylephrine HCl (Carlos-Synephrine Inj) 10 mg STK-MED ONCE .ROUTE ; Start 12/04/21 at 10:05; Stop 12/04/21 at 15:49; Status DC Sevoflurane (Ultane) 90 ml STK-MED ONCE IH ; Start 12/04/21 at 10:05; Stop 12/04/21 at 15:49; Status DC Ketamine HCl (Ketamine) 50 mg STK-MED ONCE .ROUTE ; Start 12/04/21 at 10:06; St op 12/04/21 at 15:49; Status DC Fentanyl Citrate (Fentanyl 2ml Vial) 100 mcg STK-MED ONCE .ROUTE ; Start 12/04/21 at 10:06; Stop 12/04/21 at 15:49; Status DC Heparin Sodium (Porcine) (Heparin Sodium) 10,000 unit STK-MED ONCE .ROUTE ; Start 12/04/21 at 10:06; Stop 12/04/21 at 15:49; Status DC Protamine Sulfate (Protamine) 50 mg STK-MED ONCE IV ; Start 12/04/21 at 10:06; Stop 12/04/21 at 15:49; Status DC Vasopressin (Vasostrict) 20 unit STK-MED ONCE .ROUTE ; Start 12/04/21 at 10:20; Stop 12/04/21 at 15:49; Status DC Iodixanol (Visipaque 320) 100 ml STK-MED ONCE .ROUTE ; Start 12/04/21 at 11:55; Stop 12/04/21 at 15:50; Status DC Heparin Sodium/ Sodium Chloride 1,000 ml @ As Directed STK-MED ONCE .ROUTE ; Start 12/04/21 at 11:55; Stop 12/04/21 at 15:50; Status DC Lidocaine HCl (Lidocaine 2% 20ml Vial) 20 ml STK-MED ONCE .ROUTE ; Start 12/04/21 at 11:56; Stop 12/04/21 at 15:50; Status DC Fentanyl Citrate (Fentanyl 5ml Vial) 250 mcg STK-MED ONCE .ROUTE ; Start 12/04/21 at 13:39; Stop 12/04/21 at 15:51; Status DC Heparin Sodium (Porcine) (Heparin Sodium) 10,000 unit STK-MED ONCE .ROUTE ; Start 12/04/21 at 14:51; Stop 12/04/21 at 15:51; Status DC Cellulose (Surgicel Fibrillar 1x2) 1 each STK-MED ONCE .ROUTE Last administered on 12/04/21at 16:32; Start 12/04/21 at 16:13; Stop 12/04/21 at 16:13; Status DC Albumin Human 500 ml @ 125 mls/hr 1X ONCE IV ; Start 12/04/21 at 16:30; Stop 12/04/21 at 20:29 Iodixanol (Visipaque 320) 100 ml 1X ONCE IV Last administered on 12/04/21at 16:39; Start 12/04/21 at 16:30; Stop 12/04/21 at 16:47; Status DC Aspirin (Ecotrin) 81 mg DAILYWBKFT PO ; Start 12/05/21 at 08:00 Clopidogrel Bisulfate (Plavix) 75 mg DAILYWBKFT PO ; Start 12/05/21 at 08:00 Oxycodone HCl (Roxicodone) 5 mg PRN Q3HRS PRN PO PAIN; Start 12/04/21 at 17:00 Al Hydroxide/Mg Hydroxide (Mylanta Plus Xs) 30 ml PRN Q3HRS PRN PO HEARTBURN / GAS; Start 12/04/21 at 17:00 Calcium Carbonate/ Glycine (Tums) 500 mg PRN Q3HRS PRN PO INDIGESTION; Start 12/04/21 at 17:00 Diphenhydramine HCl (Benadryl) 25 mg PRN Q6HRS PRN PO ITCHING; Start 12/04/21 at 17:00 Diphenhydramine HCl (Benadryl) 25 mg PRN Q6HRS PRN IV ITCHING; Start 12/04/21 at 17:00 Zolpidem Tartrate (Ambien) 5 mg PRN QHS PRN PO INSOMNIA; Start 12/04/21 at 17:00 Naloxone HCl (Narcan) 0.1 mg PRN Q2MIN PRN IV SEE ADMIN INSTRUCTIONS; Start 12/04/21 at 17:00 Heparin Sodium (Porcine) (Heparin Sodium) 5,000 unit Q8HRS SQ ; Start 12/04/21 at 22:00 Sodium Chloride (Normal Saline Flush) 3 ml QSHIFT PRN IV AFTER MEDS AND BLOOD DRAWS; Start 12/04/21 at 17:00 Sodium Chloride 1,000 ml @ 100 mls/hr Q10H IV ; Start 12/04/21 at 21:00 Oxycodone/ Acetaminophen (Percocet 5/325) 1 tab PRN Q4HRS PRN PO MILD PAIN, 2nd CHOICE; Start 12/04/21 at 17:00 Oxycodone/ Acetaminophen (Percocet 5/325) 2 tab PRN Q4HRS PRN PO MODERATE PAIN, SEVERE PAIN; Start 12/04/21 at 17:00 Ibuprofen (Motrin) 400 mg PRN Q6HRS PRN PO MILD PAIN, 1st CHOICE; Start 12/04/21 at 17:00 Hydromorphone HCl (Dilaudid) 0.2 mg PRN Q1HR PRN IV PAIN; Start 12/04/21 at 17:00 Senna/Docusate Sodium (Senna Plus) 1 tab BID PO ; Start 12/04/21 at 21:00 Ondansetron HCl (Zofran) 4 mg PRN Q6HRS PRN IVP NAUESA, 1ST CHOICE; Start 12/04/21 at 17:00 Cefazolin Sodium (Ancef) 1 gm Q6H IVP ; Start 12/04/21 at 22:00; Stop 12/05/21 at 10:01 Morphine Sulfate (Morphine Sulfate) 2 mg STK-MED ONCE .ROUTE ; Start 12/04/21 at 17:00; Stop 12/04/21 at 17:00; Status DC Hydromorphone HCl (Dilaudid) 2 mg STK-MED ONCE .ROUTE ; Start 12/04/21 at 17:14; Stop 12/04/21 at 17:14; Status DC Prochlorperazine Edisylate (Compazine) 10 mg STK-MED ONCE .ROUTE ; Start 12/04/21 at 17:14; Stop 12/04/21 at 17:14; Status DC Active Scripts Active Hydrocodone-Apap 5-325 (Hydrocodone Bit/Acetaminophen) 1 Tab Tablet 1 Tab PO PRN Q4HRS PRN 3 Days Proair Hfa Inhaler (Albuterol Sulfate) 8.5 Gm Hfa.aer.ad 2 Puff IH PRN Q4-6HRS PRN 21 Days Reported Aspirin 81 Mg Tab.chew 1 Tab PO DAILY Singulair Tablet (Montelukast Sodium) 10 Mg Tablet 10 Mg PO HS Gabapentin (Gabapentin) 300 Mg Capsule 300 Mg PO BID Omeprazole 40 Mg Capsule.dr 40 Mg PO DAILY Amlodipine Besylate 10 Mg Tablet 10 Mg PO DAILY Xanax (Alprazolam) 0.25 Mg Tablet 1 Mg PO PRN Q6HRS PRN Metoprolol Succinate ( Xl ) (Metoprolol Succinate) 25 Mg Tab.er.24h 25 Mg PO DAILY Allergies Allergies: Coded Allergies: No Known Drug Allergies (Unverified , 12/04/21) ROS General: YES: Fatigue, Malaise; No: Chills, Night Sweats, Appetite, Other PSYCHOLOGICAL ROS: No: Anxiety, Behavioral Disorder, Concentration difficultie, Decreased libido, Depression, Disorientation, Hallucinations, Hostility, Irritablity, Memory difficulties, Mood Swings, Obsessive thoughts, Physical abuse, Sexual abuse, Sleep disturbances, Suicidal ideation, Other Eyes: No Blurry vision, No Decreased vision, No Double vision, No Dry eyes, No Excessive tearing, No Eye Pain, No Itchy Eyes, No Loss of vision, No Photophobia, No Scotomata, No Uses contacts, No Uses glasses, No Other HEENT: No: Heacaches, Visual Changes, Hearing change, Nasal congestion, Nasal discharge, Oral lesions, Sinus pain, Sore Throat, Epistaxis, Sneezing, Snoring, Tinnitus, Vertigo, Vocal changes, Other ALLERGY AND IMMUNOLOGY: No: Hives, Insect Bite Sensitivity, Itchy/Watery Eyes, Nasal Congestion, Post Nasal Drip, Seasonal Allergies, Other Hematological and Lymphatic: YES: Blood Clots; No: Bleeding Problems, Blood Transfusions, Brusing, Night Sweats, Pallor, Swollen Lymph Nodes, Other ENDOCRINE: No: Breast Changes, Galactorrhea, Hair Pattern Changes, Hot Flashes, Malaise/lethargy, Mood Swings, Palpitations, Polydipsia/polyuria, Skin Changes, Temperature Intolerance, Unexpected Weight Changes, Other Breast: No New/Changing Breast Lumps, No Nipple changes, No Nipple discharge, No Other Respiratory: No: Cough, Hemoptysis, Orthopnea, Pleuritic Pain, Shortness of breath, SOB with excertion, Sputum Changes, Stridor, Tachypnea, Wheezing, Other Cardiovascular: No Chest Pain, No Palpitations, No Orthopnea, No Paroxysmal Noc. Dyspnea, No Edema, No Lt Headedness, No Other Gastrointestinal: No Nausea, No Vomiting, No Abdominal Pain, No Diarrhea, No Constipation, No Melena, No Hematochezia, No Other Genitourinary: No Dysuria, No Frequency, No Incontinence, No Hematuria, No Re tention, No Discharge, No Urgency, No Pain, No Flank Pain, No Other, No , No , No , No , No , No , No Musculoskeletal: Yes Gait Disturbance, Yes Muscle Pain; No Joint Pain, No Joint Stiffness, No Joint Swelling, No Muscular Weakness, No Pain In:, No Swelling In:, No Other Neurological: Yes Gait Disturbance; No Behavorial Changes, No Bowel/Bladder ControlChng, No Confusion, No Dizziness, No Headaches, No Impaired Coord/balance, No Memory Loss, No Numbness/Tingling, No Seizures, No Speech Problems, No Tremors, No Visual Benavides ges, No Weakness, No Other Skin: Yes Skin Lesion Changes; No Dry Skin, No Eczema, No Hair Changes, No Lumps, No Mole Changes, No Mottling, No Nail Changes, No Pruritus, No Rash, No Other, No Acne Physical Exam General: Alert, Oriented X3, Cooperative, mild distress HEENT: Atraumatic, PERRLA, EOMI, Mucous membr. moist/pink Lungs: Clear to auscultation, Normal air movement, Other (right chest wall port-a-cath, not accessed) Heart: S1S2, RRR, no thrills, no rubs, no gallops, no murmurs Abdomen: Normal bowel sounds, Soft, No tenderness, No hepatosplenomegaly, No masses Extremities: Other (Bilateral groin compression dressing in place, not saturated) Skin: No rashes, No breakdown, No significant lesion Neuro: Normal speech, Strength at 5/5 X4 ext, Normal tone, Sensation intact, Cranial nerves 3-12 NL, Reflexes 2+ Psych/Mental Status: Mental status NL, Mood NL Vitals Vitals Vital Signs Date Time Temp Pulse Resp B/P (MAP) Pulse Ox O2 Delivery O2 Flow Rate FiO2 12/04/21 18:36 Nasal Cannula 2.0 12/04/21 18:12 96.8 55 16 114/68 (83) 100 96.8 Labs Labs Laboratory Tests Test 12/04/21 09:05 12/04/21 09:20 12/04/21 17:10 POC SARS CoV-2 Antigen Negative (NEGATIVE) White Blood Count 4.8 x10^3/uL (4.0-11.0) 13.5 x10^3/uL (4.0-11.0) Red Blood Count 4.06 x10^6/uL (4.30-5.70) 3.78 x10^6/uL (4.30-5.70) Hemoglobin 13.1 g/dL (13.0-17.5) 12.0 g/dL (13.0-17.5) Hematocrit 39.2 % (39.0-53.0) 36.6 % (39.0-53.0) Mean Corpuscular Volume 97 fL (79-100) 97 fL (79-100) Mean Corpuscular Hemoglobin 32 pg (25-35) 32 pg (25-35) Mean Corpuscular Hemoglobin Concent 33 g/dL (31-37) 33 g/dL (31-37) Red Cell Distribution Width 15.1 % (11.5-14.5) 14.8 % (11.5-14.5) Platelet Count 168 x10^3/uL (140-400) 152 x10^3/uL (140-400) Neutrophils (%) (Auto) 63 % (31-73) 94 % (31-73) Lymphocytes (%) (Auto) 19 % (24-48) 4 % (24-48) Monocytes (%) (Auto) 10 % (0-9) 2 % (0-9) Eosinophils (%) (Auto) 7 % (0-3) 0 % (0-3) Basophils (%) (Auto) 1 % (0-3) 0 % (0-3) Neutrophils # (Auto) 3.0 x10^3/uL (1.8-7.7) 12.6 x10^3/uL (1.8-7.7) Lymphocytes # (Auto) 0.9 x10^3/uL (1.0-4.8) 0.5 x10^3/uL (1.0-4.8) Monocytes # (Auto) 0.5 x10^3/uL (0.0-1.1) 0.2 x10^3/uL (0.0-1.1) Eosinophils # (Auto) 0.3 x10^3/uL (0.0-0.7) 0.0 x10^3/uL (0.0-0.7) Basophils # (Auto) 0.0 x10^3/uL (0.0-0.2) 0.1 x10^3/uL (0.0-0.2) Sodium Level 137 mmol/L (136-145) Potassium Level 4.0 mmol/L (3.5-5.1) Chloride Level 104 mmol/L (98-107) Carbon Dioxide Level 27 mmol/L (21-32) Anion Gap 6 (6-14) Blood Urea Nitrogen 16 mg/dL (8-26) Creatinine 1.0 mg/dL (0.7-1.3) Estimated GFR (Cockcroft-Gault) 91.3 BUN/Creatinine Ratio 16 (6-20) Glucose Level 89 mg/dL (70-99) Calcium Level 8.9 mg/dL (8.5-10.1) Total Bilirubin 0.4 mg/dL (0.2-1.0) Aspartate Amino Transf (AST/SGOT) 19 U/L (15-37) Alanine Aminotransferase (ALT/SGPT) 15 U/L (16-63) Alkaline Phosphatase 111 U/L (46-116) Total Protein 8.1 g/dL (6.4-8.2) Albumin 3.5 g/dL (3.4-5.0) Albumin/Globulin Ratio 0.8 (1.0-1.7) Laboratory Tests Test 12/04/21 09:05 12/04/21 09:20 12/04/21 17:10 POC SARS CoV-2 Antigen Negative (NEGATIVE) White Blood Count 4.8 x10^3/uL (4.0-11.0) 13.5 x10^3/uL (4.0-11.0) Red Blood Count 4.06 x10^6/uL (4.30-5.70) 3.78 x10^6/uL (4.30-5.70) Hemoglobin 13.1 g/dL (13.0-17.5) 12.0 g/dL (13.0-17.5) Hematocrit 39.2 % (39.0-53.0) 36.6 % (39.0-53.0) Mean Corpuscular Volume 97 fL (79-100) 97 fL (79-100) Mean Corpuscular Hemoglobin 32 pg (25-35) 32 pg (25-35) Mean Corpuscular Hemoglobin Concent 33 g/dL (31-37) 33 g/dL (31-37) Red Cell Distribution Width 15.1 % (11.5-14.5) 14.8 % (11.5-14.5) Platelet Count 168 x10^3/uL (140-400) 152 x10^3/uL (140-400) Neutrophils (%) (Auto) 63 % (31-73) 94 % (31-73) Lymphocytes (%) (Auto) 19 % (24-48) 4 % (24-48) Monocytes (%) (Auto) 10 % (0-9) 2 % (0-9) Eosinophils (%) (Auto) 7 % (0-3) 0 % (0-3) Basophils (%) (Auto) 1 % (0-3) 0 % (0-3) Neutrophils # (Auto) 3.0 x10^3/uL (1.8-7.7) 12.6 x10^3/uL (1.8-7.7) Lymphocytes # (Auto) 0.9 x10^3/uL (1.0-4.8) 0.5 x10^3/uL (1.0-4.8) Monocytes # (Auto) 0.5 x10^3/uL (0.0-1.1) 0.2 x10^3/uL (0.0-1.1) Eosinophils # (Auto) 0.3 x10^3/uL (0.0-0.7) 0.0 x10^3/uL (0.0-0.7) Basophils # (Auto) 0.0 x10^3/uL (0.0-0.2) 0.1 x10^3/uL (0.0-0.2) Sodium Level 137 mmol/L (136-145) Potassium Level 4.0 mmol/L (3.5-5.1) Chloride Level 104 mmol/L (98-107) Carbon Dioxide Level 27 mmol/L (21-32) Anion Gap 6 (6-14) Blood Urea Nitrogen 16 mg/dL (8-26) Creatinine 1.0 mg/dL (0.7-1.3) Estimated GFR (Cockcroft-Gault) 91.3 BUN/Creatinine Ratio 16 (6-20) Glucose Level 89 mg/dL (70-99) Calcium Level 8.9 mg/dL (8.5-10.1) Total Bilirubin 0.4 mg/dL (0.2-1.0) Aspartate Amino Transf (AST/SGOT) 19 U/L (15-37) Alanine Aminotransferase (ALT/SGPT) 15 U/L (16-63) Alkaline Phosphatase 111 U/L (46-116) Total Protein 8.1 g/dL (6.4-8.2) Albumin 3.5 g/dL (3.4-5.0) Albumin/Globulin Ratio 0.8 (1.0-1.7) VTE Prophylaxis Ordered VTE Prophylaxis Devices: Yes VTE Pharmacological Prophylaxi: Yes Assessment/Plan Assessment/Plan Right iliac artery occlusion - s/p right ileofemoral thromboendarterectomy, redo groin incision with a right profunda femoris thromboendarterectomy through separate arteriotomy, right common iliac stenting with 10x39 VBX, right external iliac stenting with 10x79 VBX and [id number] smart self expanding stent across hypogastric origin, and thrombectomy of right external iliac artery. Cont dual antiplatelet Hypertension - cont home meds Peripheral arterial disease - as above Smoker - counseled on cessation, offered nicotine replacement therapy Large B Cell lymphoma - missed chemo today, will notify oncology FEN - regular diet PPX - heparin FULL CODE Dispo - inpatient Justifications for Admission Other Justification HE LEWIS MD Dec 04, 2021 19:03
[2021-12-04 19:06] LABS: % BANDS 2 % (0-9); % LYMPHS 3 % (24-48); % SEGS 95 % (35-66)
[2021-12-04 19:07] LABS: PLT ESTIMATE ADEQUATE (ADEQUATE)
[2021-12-04] MEDS ORDERED: HEPARIN PF 500 UNIT/5 ML DISP.SYRIN. IVP PRN (19:30)
[2021-12-04] MEDS: IV NORMAL SALINE 1000ML BAG 1,000 ML IV SCH (21:00)
[2021-12-04] MEDS ORDERED: PSYLLIUM HUSK (SUGAR FREE) 1 PKT PACKET PO SCH (21:00)
[2021-12-04] MEDS: POLYETHYLENE GLYCOL 3350 17 GM PACKET. PO SCH (21:37)
[2021-12-04] MEDS: oxyCODONE/APAP 5/325 1 TAB TABLET PO PRN (21:37)
[2021-12-04] MEDS: SENNOSIDES/DOCUSATE 8.6/50MG TABLET. PO SCH (21:37)
[2021-12-04] MEDS: HEPARIN for SUB-Q USE 5,000 UNIT/ML VIAL. SQ SCH (22:00)
[2021-12-04] MEDS: ceFAZolin SODIUM IV Push 1 GM VIAL. IVP SCH (22:00)
[2021-12-05 02:23] VITALS: BP 112/62
[2021-12-05] MEDS: ceFAZolin SODIUM IV Push 1 GM VIAL. IVP SCH ×2 (05:03→10:04)
[2021-12-05] MEDS: oxyCODONE/APAP 5/325 1 TAB TABLET PO PRN ×5 (05:04→17:11)
[2021-12-05] MEDS: HEPARIN for SUB-Q USE 5,000 UNIT/ML VIAL. SQ SCH ×2 (05:48→14:17)
[2021-12-05 07:00] VITALS: BP 127/65
[2021-12-05] MEDS ORDERED: ASPIRIN ENTERIC COATED 81 MG TABLET.DR. PO SCH (08:00)
[2021-12-05] MEDS ORDERED: CLOPIDOGREL BISULFATE 75 MG TABLET PO SCH (08:00)
[2021-12-05] MEDS: IV NORMAL SALINE 1000ML BAG 1,000 ML IV SCH (08:31)
[2021-12-05] MEDS: SENNOSIDES/DOCUSATE 8.6/50MG TABLET. PO SCH (08:32)
[2021-12-05] MEDS: POLYETHYLENE GLYCOL 3350 17 GM PACKET. PO SCH (08:32)
--- NOTE | 2021-12-05 10:41 | PDOC ---
PROGRESS NOTES Date of Service DATE: 12/05/21 TIME: 10:40 Subjective Subjective He has some expected incisional discomfort. Denies any leg pain at this time except around the incision. Objective Objective Vital Signs Date Time Temp Pulse Resp B/P (MAP) Pulse Ox O2 Delivery O2 Flow Rate FiO2 12/05/21 10:04 Room Air 12/05/21 07:00 98.0 57 16 127/65 (85) 100 2.0 98.0 Intake and Output 12/05/21 07:00 Intake Total 1770 ml Output Total 2000 ml Balance -230 ml Intake Oral 220 ml IV Total 1550 ml Output Urine Total 1450 ml Estimated Blood Loss 550 ml Physical Exam Abdomen: Soft, No tenderness Heart: Regular rate Extremities: Other (Left femoral puncture and right groin dressing intact. Minimal edema. Strong posterior tibial pulses bilaterally. No significant peripheral edema.) General: Alert, Oriented X3, No acute distress Assessment Assessment Peripheral arterial disease status post right iliofemoral endarterectomy and stenting Hypertension Plan Plan of Care He is doing well following right iliofemoral endarterectomy. His Jacobs catheter was removed this morning. He may increase activity as tolerated. Can likely discharge home later today if voiding and ambulating without difficulty. Comment Review of Relevant I have reviewed the following items sunitha (where applicable) has been applied. Labs Laboratory Tests Test 12/04/21 09:05 12/04/21 09:20 12/04/21 17:10 POC SARS CoV-2 Antigen Negative (NEGATIVE) White Blood Count 4.8 x10^3/uL (4.0-11.0) 13.5 x10^3/uL (4.0-11.0) Red Blood Count 4.06 x10^6/uL (4.30-5.70) 3.78 x10^6/uL (4.30-5.70) Hemoglobin 13.1 g/dL (13.0-17.5) 12.0 g/dL (13.0-17.5) Hematocrit 39.2 % (39.0-53.0) 36.6 % (39.0-53.0) Mean Corpuscular Volume 97 fL (79-100) 97 fL (79-100) Mean Corpuscular Hemoglobin 32 pg (25-35) 32 pg (25-35) Mean Corpuscular Hemoglobin Concent 33 g/dL (31-37) 33 g/dL (31-37) Red Cell Distribution Width 15.1 % (11.5-14.5) 14.8 % (11.5-14.5) Platelet Count 168 x10^3/uL (140-400) 152 x10^3/uL (140-400) Neutrophils (%) (Auto) 63 % (31-73) 94 % (31-73) Lymphocytes (%) (Auto) 19 % (24-48) 4 % (24-48) Monocytes (%) (Auto) 10 % (0-9) 2 % (0-9) Eosinophils (%) (Auto) 7 % (0-3) 0 % (0-3) Basophils (%) (Auto) 1 % (0-3) 0 % (0-3) Neutrophils # (Auto) 3.0 x10^3/uL (1.8-7.7) 12.6 x10^3/uL (1.8-7.7) Lymphocytes # (Auto) 0.9 x10^3/uL (1.0-4.8) 0.5 x10^3/uL (1.0-4.8) Monocytes # (Auto) 0.5 x10^3/uL (0.0-1.1) 0.2 x10^3/uL (0.0-1.1) Eosinophils # (Auto) 0.3 x10^3/uL (0.0-0.7) 0.0 x10^3/uL (0.0-0.7) Basophils # (Auto) 0.0 x10^3/uL (0.0-0.2) 0.1 x10^3/uL (0.0-0.2) Sodium Level 137 mmol/L (136-145) Potassium Level 4.0 mmol/L (3.5-5.1) Chloride Level 104 mmol/L (98-107) Carbon Dioxide Level 27 mmol/L (21-32) Anion Gap 6 (6-14) Blood Urea Nitrogen 16 mg/dL (8-26) Creatinine 1.0 mg/dL (0.7-1.3) Estimated GFR (Cockcroft-Gault) 91.3 BUN/Creatinine Ratio 16 (6-20) Glucose Level 89 mg/dL (70-99) Calcium Level 8.9 mg/dL (8.5-10.1) Total Bilirubin 0.4 mg/dL (0.2-1.0) Aspartate Amino Transf (AST/SGOT) 19 U/L (15-37) Alanine Aminotransferase (ALT/SGPT) 15 U/L (16-63) Alkaline Phosphatase 111 U/L (46-116) Total Protein 8.1 g/dL (6.4-8.2) Albumin 3.5 g/dL (3.4-5.0) Albumin/Globulin Ratio 0.8 (1.0-1.7) Segmented Neutrophils % 95 % (35-66) Band Neutrophils % 2 % (0-9) Lymphocytes % 3 % (24-48) Platelet Estimate Adequate (ADEQUATE) Laboratory Tests Test 12/04/21 17:10 White Blood Count 13.5 x10^3/uL (4.0-11.0) Red Blood Count 3.78 x10^6/uL (4.30-5.70) Hemoglobin 12.0 g/dL (13.0-17.5) Hematocrit 36.6 % (39.0-53.0) Mean Corpuscular Volume 97 fL (79-100) Mean Corpuscular Hemoglobin 32 pg (25-35) Mean Corpuscular Hemoglobin Concent 33 g/dL (31-37) Red Cell Distribution Width 14.8 % (11.5-14.5) Platelet Count 152 x10^3/uL (140-400) Neutrophils (%) (Auto) 94 % (31-73) Lymphocytes (%) (Auto) 4 % (24-48) Monocytes (%) (Auto) 2 % (0-9) Eosinophils (%) (Auto) 0 % (0-3) Basophils (%) (Auto) 0 % (0-3) Neutrophils # (Auto) 12.6 x10^3/uL (1.8-7.7) Lymphocytes # (Auto) 0.5 x10^3/uL (1.0-4.8) Monocytes # (Auto) 0.2 x10^3/uL (0.0-1.1) Eosinophils # (Auto) 0.0 x10^3/uL (0.0-0.7) Basophils # (Auto) 0.1 x10^3/uL (0.0-0.2) Segmented Neutrophils % 95 % (35-66) Band Neutrophils % 2 % (0-9) Lymphocytes % 3 % (24-48) Platelet Estimate Adequate (ADEQUATE) Medications Current Medications Heparin Sodium (Porcine) 5000 unit/Sodium Chloride 505 ml @ 505 mls/hr 1X ONCE IRR Last administered on 12/04/21at 13:55; Start 12/04/21 at 06:00; Stop 12/04/21 at 06:59; Status DC Cefazolin Sodium 1 gm/Sodium Chloride 500 ml @ 500 mls/hr 1X ONCE IRR Last administered on 12/04/21at 13:55; Start 12/04/21 at 06:00; Stop 12/04/21 at 06:59; Status DC Fentanyl Citrate (Fentanyl 2ml Vial) 25 mcg PRN Q5MIN PRN IVP MILD PAIN 1-3; Start 12/04/21 at 06:00; Stop 12/04/21 at 20:00; Status DC Fentanyl Citrate (Fentanyl 2ml Vial) 50 mcg PRN Q5MIN PRN IVP MODERATE PAIN 4- 6; Start 12/04/21 at 06:00; Stop 12/04/21 at 20:00; Status DC Morphine Sulfate (Morphine Sulfate) 1 mg PRN Q10MIN PRN IVP SEVERE PAIN 7-10 Last administered on 12/04/21at 17:17; Start 12/04/21 at 06:00; Stop 12/04/21 at 20:00; Status DC Ringer's Solution 1,000 ml @ 30 mls/hr Q24H IV Last administered on 12/04/21at 17:44; Start 12/04/21 at 06:00; Stop 12/04/21 at 17:59; Status DC Hydromorphone HCl (Dilaudid) 0.5 mg PRN Q10MIN PRN IVP SEVERE PAIN 7-10, 2nd CHOICE Last administered on 12/04/21at 17:28; Start 12/04/21 at 06:00; Stop 12/04/21 at 20:00; Status DC Prochlorperazine Edisylate (Compazine) 5 mg PACU PRN PRN IVP NAUSEA, MRX1 Last administered on 12/04/21at 17:18; Start 12/04/21 at 06:00; Stop 12/04/21 at 20:00; Status DC Cefazolin Sodium/ Dextrose 50 ml @ 100 mls/hr 1X PREOP PRN IV PRIOR TO PROCEDURE; Start 12/04/21 at 06:00; Stop 12/04/21 at 18:00; Status DC Propofol (Diprivan) 200 mg STK-MED ONCE IV ; Start 12/04/21 at 10:05; Stop 12/04/21 at 15:49; Status DC Dexamethasone Sodium Phosphate (Decadron) 4 mg STK-MED ONCE .ROUTE ; Start 12/04/21 at 10:05; Stop 12/04/21 at 15:49; Status DC Ondansetron HCl (Zofran) 4 mg STK-MED ONCE .ROUTE ; Start 12/04/21 at 10:05; Stop 12/04/21 at 15:49; Status DC Phenylephrine HCl (Carlos-Synephrine Inj) 10 mg STK-MED ONCE .ROUTE ; Start 12/04/21 at 10:05; Stop 12/04/21 at 15:49; Status DC Sevoflurane (Ultane) 90 ml STK-MED ONCE IH ; Start 12/04/21 at 10:05; Stop 12/04/21 at 15:49; Status DC Ketamine HCl (Ketamine) 50 mg STK-MED ONCE .ROUTE ; Start 12/04/21 at 10:06; Stop 12/04/21 at 15:49; Status DC Fentanyl Citrate (Fentanyl 2ml Vial) 100 mcg STK-MED ONCE .ROUTE ; Start 12/04/21 at 10:06; Stop 12/04/21 at 15:49; Status DC Heparin Sodium (Porcine) (Heparin Sodium) 10,000 unit STK-MED ONCE .ROUTE ; Start 12/04/21 at 10:06; Stop 12/04/21 at 15:49; Status DC Protamine Sulfate (Protamine) 50 mg STK-MED ONCE IV ; Start 12/04/21 at 10:06; Stop 12/04/21 at 15:49; Status DC Vasopressin (Vasostrict) 20 unit STK-MED ONCE .ROUTE ; Start 12/04/21 at 10:20; Stop 12/04/21 at 15:49; Status DC Iodixanol (Visipaque 320) 100 ml STK-MED ONCE .ROUTE ; Start 12/04/21 at 11:55; Stop 12/04/21 at 15:50; Status DC Heparin Sodium/ Sodium Chloride 1,000 ml @ As Directed STK-MED ONCE .ROUTE ; Start 12/04/21 at 11:55; Stop 12/04/21 at 15:50; Status DC Lidocaine HCl (Lidocaine 2% 20ml Vial) 20 ml STK-MED ONCE .ROUTE ; Start 12/04/21 at 11:56; Stop 12/04/21 at 15:50; Status DC Fentanyl Citrate (Fentanyl 5ml Vial) 250 mcg STK-MED ONCE .ROUTE ; Start 12/04/21 at 13:39; Stop 12/04/21 at 15:51; Status DC Heparin Sodium (Porcine) (Heparin Sodium) 10,000 unit STK-MED ONCE .ROUTE ; Start 12/04/21 at 14:51; Stop 12/04/21 at 15:51; Status DC Cellulose (Surgicel Fibrillar 1x2) 1 each STK-MED ONCE .ROUTE Last administered on 12/04/21at 16:32; Start 12/04/21 at 16:13; Stop 12/04/21 at 16:13; Status DC Albumin Human 500 ml @ 125 mls/hr 1X ONCE IV ; Start 12/04/21 at 16:30; Stop 12/04/21 at 20:29; Status DC Iodixanol (Visipaque 320) 100 ml 1X ONCE IV Last administered on 12/04/21at 16:39; Start 12/04/21 at 16:30; Stop 12/04/21 at 16:47; Status DC Aspirin (Ecotrin) 81 mg DAILYWBKFT PO Last administered on 12/05/21at 08:32; Start 12/05/21 at 08:00 Clopidogrel Bisulfate (Plavix) 75 mg DAILYWBKFT PO Last administered on 12/05/21at 08:32; Start 12/05/21 at 08:00 Oxycodone HCl (Roxicodone) 5 mg PRN Q3HRS PRN PO PAIN; Start 12/04/21 at 17:00 Al Hydroxide/Mg Hydroxide (Mylanta Plus Xs) 30 ml PRN Q3HRS PRN PO HEARTBURN / GAS; Start 12/04/21 at 17:00 Calcium Carbonate/ Glycine (Tums) 500 mg PRN Q3HRS PRN PO INDIGESTION; Start 12/04/21 at 17:00 Diphenhydramine HCl (Benadryl) 25 mg PRN Q6HRS PRN PO ITCHING; Start 12/04/21 at 17:00 Diphenhydramine HCl (Benadryl) 25 mg PRN Q6HRS PRN IV ITCHING; Start 12/04/21 at 17:00 Zolpidem Tartrate (Ambien) 5 mg PRN QHS PRN PO INSOMNIA; Start 12/04/21 at 17:00 Naloxone HCl (Narcan) 0.1 mg PRN Q2MIN PRN IV SEE ADMIN INSTRUCTIONS; Start 12/04/21 at 17:00 Heparin Sodium (Porcine) (Heparin Sodium) 5,000 unit Q8HRS SQ Last administered on 12/05/21at 05:48; Start 12/04/21 at 22:00 Sodium Chloride (Normal Saline Flush) 3 ml QSHIFT PRN IV AFTER MEDS AND BLOOD DRAWS; Start 12/04/21 at 17:00 Sodium Chloride 1,000 ml @ 100 mls/hr Q10H IV Last administered on 12/05/21at 08:31; Start 12/04/21 at 21:00 Oxycodone/ Acetaminophen (Percocet 5/325) 1 tab PRN Q4HRS PRN PO MILD PAIN, 2nd CHOICE Last administered on 12/05/21at 05:04; Start 12/04/21 at 17:00 Oxycodone/ Acetaminophen (Percocet 5/325) 2 tab PRN Q4HRS PRN PO MODERATE PAIN, SEVERE PAIN Last administered on 12/05/21at 10:04; Start 12/04/21 at 17:00 Ibuprofen (Motrin) 400 mg PRN Q6HRS PRN PO MILD PAIN, 1st CHOICE; Start 12/04/21 at 17:00 Hydromorphone HCl (Dilaudid) 0.2 mg PRN Q1HR PRN IV PAIN; Start 12/04/21 at 17:00 Senna/Docusate Sodium (Senna Plus) 1 tab BID PO Last administered on 12/05/21at 08:32; Start 12/04/21 at 21:00 Ondansetron HCl (Zofran) 4 mg PRN Q6HRS PRN IVP NAUESA, 1ST CHOICE; Start 12/04/21 at 17:00 Cefazolin Sodium (Ancef) 1 gm Q6H IVP Last administered on 12/05/21at 10:04; Start 12/04/21 at 22:00; Stop 12/05/21 at 10:01; Status DC Morphine Sulfate (Morphine Sulfate) 2 mg STK-MED ONCE .ROUTE ; Start 12/04/21 at 17:00; Stop 12/04/21 at 17:00; Status DC Hydromorphone HCl (Dilaudid) 2 mg STK-MED ONCE .ROUTE ; Start 12/04/21 at 17:14; Stop 12/04/21 at 17:14; Status DC Prochlorperazine Edisylate (Compazine) 10 mg STK-MED ONCE .ROUTE ; Start 12/04/21 at 17:14; Stop 12/04/21 at 17:14; Status DC Polyethylene Glycol (miraLAX PACKET) 17 gm BID PO Last administered on 12/05/21at 08:32; Start 12/04/21 at 21:00 Psyllium Hydrophilic Mucilloid (Metamucil Fiber Packet) 1 pkt QHS PO Last administered on 12/04/21at 21:37; Start 12/04/21 at 21:00 Heparin Sodium (Porcine) (Hep Lock Adult) 500 unit PRN DAILY PRN IVP AFTER MEDS AND BLOOD DRAWS; Start 12/04/21 at 19:30 Active Scripts Active Hydrocodone-Apap 5-325 (Hydrocodone Bit/Acetaminophen) 1 Tab Tablet 1 Tab PO PRN Q4HRS PRN 3 Days Proair Hfa Inhaler (Albuterol Sulfate) 8.5 Gm Hfa.aer.ad 2 Puff IH PRN Q4-6HRS PRN 21 Days Reported Aspirin 81 Mg Tab.chew 1 Tab PO DAILY Singulair Tablet (Montelukast Sodium) 10 Mg Tablet 10 Mg PO HS Gabapentin (Gabapentin) 300 Mg Capsule 300 Mg PO BID Omeprazole 40 Mg Capsule.dr 40 Mg PO DAILY Amlodipine Besylate 10 Mg Tablet 10 Mg PO DAILY Xanax (Alprazolam) 0.25 Mg Tablet 1 Mg PO PRN Q6HRS PRN Metoprolol Succinate ( Xl ) (Metoprolol Succinate) 25 Mg Tab.er.24h 25 Mg PO DAILY Vitals/I & O Vital Sign - Last 24 Hours 4/28/22 4/28/22 4/28/22 4/28/22 16:53 16:53 17:03 17:08 Pulse 65 68 Resp 20 20 20 B/P (MAP) 115/76 123/75 Pulse Ox 100 99 100 O2 Delivery Mask Simple Mask Aerosol Mask Simple Mask O2 Flow Rate 10.0 10.0 10.0 10.0 12/04/21 12/04/21 12/04/21 12/04/21 17:17 17:18 17:24 17:28 Pulse 63 Resp 20 20 20 20 B/P (MAP) 124/53 Pulse Ox 100 99 100 99 O2 Delivery Simple Mask Simple Mask Nasal Cannula Nasal Cannula O2 Flow Rate 10.0 10.0 2.0 2.0 12/04/21 12/04/21 12/04/21 12/04/21 17:39 17:54 18:12 18:22 Temp 96.8 96.8 Pulse 64 63 55 56 Resp 20 20 16 B/P (MAP) 111/62 100/58 114/68 (83) 110/68 (82) Pulse Ox 100 100 100 100 O2 Delivery Nasal Cannula Nasal Cannula Nasal Cannula Nasal Cannula O2 Flow Rate 2.0 2.0 2.0 2.0 12/04/21 12/04/21 12/04/21 12/04/21 18:36 18:37 18:52 19:07 Pulse 54 56 56 B/P (MAP) 111/65 (80) 113/66 (82) 120/68 (85) Pulse Ox 100 100 O2 Delivery Nasal Cannula Nasal Cannula Nasal Cannula O2 Flow Rate 2.0 2.0 2.0 12/04/21 12/04/21 12/04/21 12/05/21 19:22 20:00 22:30 02:23 Temp 98.0 98.3 98.0 98.3 Pulse 58 56 84 B/P (MAP) 108/56 (73) 122/79 (93) 112/62 (79) Pulse Ox 100 100 O2 Delivery Nasal Cannula Nasal Cannula Nasal Cannula O2 Flow Rate 2.0 2.0 2.0 12/05/21 12/05/21 07:00 10:04 Temp 98.0 98.0 Pulse 57 Resp 16 B/P (MAP) 127/65 (85) Pulse Ox 100 O2 Delivery Nasal Cannula Room Air O2 Flow Rate 2.0 Intake and Output 12/04/21 12/04/21 12/05/21 15:00 23:00 07:00 Intake Total 1670 ml 100 ml Output Total 1500 ml 500 ml Balance 170 ml -400 ml Justifications for Admission Other Justification ROYAL MORALES MD Dec 05, 2021 10:41
[2021-12-05 11:00] VITALS: BP 149/70
[2021-12-05 13:38] LABS: BASO % 0 % (0-3); EOS # 0.2 x10^3/uL (0.0-0.7); EOS % 3 % (0-3); HEMATOCRIT 30.7 % (39.0-53.0); HEMOGLOBIN 10.1 g/dL (13.0-17.5); LYMPH # 1.2 x10^3/uL (1.0-4.8); LYMPH % 17 % (24-48); MEAN CORPUSCULAR HEMOGLOBIN 32 pg (25-35); MEAN CORPUSCULAR HGB CONC 33 g/dL (31-37); MEAN CORPUSCULAR VOLUME 96 fL (79-100); MONO # 0.6 x10^3/uL (0.0-1.1); MONO % 8 % (0-9); NEUT # 4.9 x10^3/uL (1.8-7.7); NEUT % 72 % (31-73); PLATELET COUNT 138 x10^3/uL (140-400); RED BLOOD COUNT 3.18 x10^6/uL (4.30-5.70); RED CELL DISTRIBUTION WIDTH 14.6 % (11.5-14.5); WHITE BLOOD COUNT 6.9 x10^3/uL (4.0-11.0)
[2021-12-05 14:04] LABS: CALCIUM 8.3 mg/dL (8.5-10.1); CREATININE 0.9 mg/dL (0.7-1.3)
[2021-12-05 14:05] LABS: GFR 103.1; POTASSIUM 3.3 mmol/L (3.5-5.1)
--- NOTE | 2021-12-05 14:32 | PDOC ---
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 He has no complaints, denies pain. He is anxious to di scharge home today. From vascular standpoint he may discharge home today. Spoke with Dr. 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 He may resume aspirin and Plavix and follow-up with Dr. Martinez on outpatient basis. Greater than 30 minutes was spent managing the discharge this patient. Vitals/I&O Vitals/I&O: Vital Signs Date Time Temp Pulse Resp B/P (MAP) Pulse Ox O2 Delivery O2 Flow Rate FiO2 12/05/21 11:00 98.5 66 16 149/70 (96) 100 Room Air 98.5 12/05/21 08:00 2.0 I & O 12/04/21 12/04/21 12/05/21 15:00 23:00 07:00 Intake Total 1670 ml 100 ml Output Total 1500 ml 500 ml Balance 170 ml -400 ml Physical Exam General: Alert, Oriented X3, No acute distress Heart: Regular rate Lungs: Clear Abdomen: Soft, No tenderness Extremities: Other (Left femoral puncture and right groin dressing intact. Minimal edema. Strong posterior tibial pulses bilaterally. No significant peripheral edema.) Skin: No rashes, No breakdown, No significant lesion Labs Labs: Laboratory Tests Test 12/04/21 17:10 12/05/21 13:13 12/05/21 13:18 White Blood Count 13.5 x10^3/uL (4.0-11.0) 6.9 x10^3/uL (4.0-11.0) Red Blood Count 3.78 x10^6/uL (4.30-5.70) 3.18 x10^6/uL (4.30-5.70) Hemoglobin 12.0 g/dL (13.0-17.5) 10.1 g/dL (13.0-17.5) Hematocrit 36.6 % (39.0-53.0) 30.7 % (39.0-53.0) Mean Corpuscular Volume 97 fL (79-100) 96 fL (79-100) Mean Corpuscular Hemoglobin 32 pg (25-35) 32 pg (25-35) Mean Corpuscular Hemoglobin Concent 33 g/dL (31-37) 33 g/dL (31-37) Red Cell Distribution Width 14.8 % (11.5-14.5) 14.6 % (11.5-14.5) Platelet Count 152 x10^3/uL (140-400) 138 x10^3/uL (140-400) Neutrophils (%) (Auto) 94 % (31-73) 72 % (31-73) Lymphocytes (%) (Auto) 4 % (24-48) 17 % (24-48) Monocytes (%) (Auto) 2 % (0-9) 8 % (0-9) Eosinophils (%) (Auto) 0 % (0-3) 3 % (0-3) Basophils (%) (Auto) 0 % (0-3) 0 % (0-3) Neutrophils # (Auto) 12.6 x10^3/uL (1.8-7.7) 4.9 x10^3/uL (1.8-7.7) Lymphocytes # (Auto) 0.5 x10^3/uL (1.0-4.8) 1.2 x10^3/uL (1.0-4.8) Monocytes # (Auto) 0.2 x10^3/uL (0.0-1.1) 0.6 x10^3/uL (0.0-1.1) Eosinophils # (Auto) 0.0 x10^3/uL (0.0-0.7) 0.2 x10^3/uL (0.0-0.7) Basophils # (Auto) 0.1 x10^3/uL (0.0-0.2) 0.0 x10^3/uL (0.0-0.2) Segmented Neutrophils % 95 % (35-66) Band Neutrophils % 2 % (0-9) Lymphocytes % 3 % (24-48) Platelet Estimate Adequate (ADEQUATE) Sodium Level 140 mmol/L (136-145) Potassium Level 3.3 mmol/L (3.5-5.1) Chloride Level 107 mmol/L (98-107) Carbon Dioxide Level 28 mmol/L (21-32) Anion Gap 5 (6-14) Blood Urea Nitrogen 10 mg/dL (8-26) Creatinine 0.9 mg/dL (0.7-1.3) Estimated GFR (Cockcroft-Gault) 103.1 Glucose Level 97 mg/dL (70-99) Calcium Level 8.3 mg/dL (8.5-10.1) Comment Review of Relevant I have reviewed the following items sunitha (where applicable) has been applied. Medications: Current Medications Medications (Trade) Dose Ordered Sig/Dorita Route PRN Reason Start Time Stop Time Status Last Admin Dose Admin Cellulose (Surgicel Fibrillar 1x2) 1 each STK-MED ONCE .ROUTE 12/04/21 16:13 12/04/21 16:13 DC 12/04/21 16:32 Iodixanol (Visipaque 320) 100 ml 1X ONCE IV 12/04/21 16:30 12/04/21 16:47 DC 12/04/21 16:39 Aspirin (Ecotrin) 81 mg DAILYWBKFT PO 12/05/21 08:00 12/05/21 08:32 Clopidogrel Bisulfate (Plavix) 75 mg DAILYWBKFT PO 12/05/21 08:00 12/05/21 08:32 Heparin Sodium (Porcine) (Heparin Sodium) 5,000 unit Q8HRS SQ 12/04/21 22:00 12/05/21 14:17 Sodium Chloride 1,000 ml @ 100 mls/hr Q10H IV 12/04/21 21:00 12/05/21 10:43 DC 12/05/21 08:31 Oxycodone/ Acetaminophen (Percocet 5/325) 1 tab PRN Q4HRS PRN PO MILD PAIN, 2nd CHOICE 12/04/21 17:00 12/05/21 05:04 Oxycodone/ Acetaminophen (Percocet 5/325) 2 tab PRN Q4HRS PRN PO MODERATE PAIN, SEVERE PAIN 12/04/21 17:00 12/05/21 10:04 Senna/Docusate Sodium (Senna Plus) 1 tab BID PO 12/04/21 21:00 12/05/21 08:32 Cefazolin Sodium (Ancef) 1 gm Q6H IVP 12/04/21 22:00 12/05/21 10:01 DC 12/05/21 10:04 Polyethylene Glycol (miraLAX PACKET) 17 gm BID PO 12/04/21 21:00 12/05/21 08:32 Psyllium Hydrophilic Mucilloid (Metamucil Fiber Packet) 1 pkt QHS PO 12/04/21 21:00 12/04/21 21:37 Justifications for Admission Other Justification LOGAN WARREN MD Dec 05, 2021 14:32
--- NOTE | 2021-12-05 14:35 | PDOC3 ---
Discharge Summary Visit Information Date of Admission: Dec 04, 2021 Date of Discharge: Dec 05, 2021 Brief Hospital Course Allergies Allergies Coded Allergies Type Severity Reaction Last Updated Verified No Known Drug Allergies 12/04/21 No Vital Signs Vital Signs Date Time Temp Pulse Resp B/P (MAP) Pulse Ox O2 Delivery O2 Flow Rate FiO2 12/05/21 11:00 98.5 66 16 149/70 (96) 100 Room Air 98.5 12/05/21 08:00 2.0 Lab Results Laboratory Tests Test 12/04/21 09:05 12/04/21 09:20 12/04/21 17:10 12/05/21 13:13 POC SARS CoV-2 Antigen Negative (NEGATIVE) White Blood Count 4.8 x10^3/uL (4.0-11.0) 13.5 x10^3/uL (4.0-11.0) Red Blood Count 4.06 x10^6/uL (4.30-5.70) 3.78 x10^6/uL (4.30-5.70) Hemoglobin 13.1 g/dL (13.0-17.5) 12.0 g/dL (13.0-17.5) Hematocrit 39.2 % (39.0-53.0) 36.6 % (39.0-53.0) Mean Corpuscular Volume 97 fL (79-100) 97 fL (79-100) Mean Corpuscular Hemoglobin 32 pg (25-35) 32 pg (25-35) Mean Corpuscular Hemoglobin Concent 33 g/dL (31-37) 33 g/dL (31-37) Red Cell Distribution Width 15.1 % (11.5-14.5) 14.8 % (11.5-14.5) Platelet Count 168 x10^3/uL (140-400) 152 x10^3/uL (140-400) Neutrophils (%) (Auto) 63 % (31-73) 94 % (31-73) Lymphocytes (%) (Auto) 19 % (24-48) 4 % (24-48) Monocytes (%) (Auto) 10 % (0-9) 2 % (0-9) Eosinophils (%) (Auto) 7 % (0-3) 0 % (0-3) Basophils (%) (Auto) 1 % (0-3) 0 % (0-3) Neutrophils # (Auto) 3.0 x10^3/uL (1.8-7.7) 12.6 x10^3/uL (1.8-7.7) Lymphocytes # (Auto) 0.9 x10^3/uL (1.0-4.8) 0.5 x10^3/uL (1.0-4.8) Monocytes # (Auto) 0.5 x10^3/uL (0.0-1.1) 0.2 x10^3/uL (0.0-1.1) Eosinophils # (Auto) 0.3 x10^3/uL (0.0-0.7) 0.0 x10^3/uL (0.0-0.7) Basophils # (Auto) 0.0 x10^3/uL (0.0-0.2) 0.1 x10^3/uL (0.0-0.2) Sodium Level 137 mmol/L (136-145) 140 mmol/L (136-145) Potassium Level 4.0 mmol/L (3.5-5.1) 3.3 mmol/L (3.5-5.1) Chloride Level 104 mmol/L (98-107) 107 mmol/L (98-107) Carbon Dioxide Level 27 mmol/L (21-32) 28 mmol/L (21-32) Anion Gap 6 (6-14) 5 (6-14) Blood Urea Nitrogen 16 mg/dL (8-26) 10 mg/dL (8-26) Creatinine 1.0 mg/dL (0.7-1.3) 0.9 mg/dL (0.7-1.3) Estimated GFR (Cockcroft-Gault) 91.3 103.1 BUN/Creatinine Ratio 16 (6-20) Glucose Level 89 mg/dL (70-99) 97 mg/dL (70-99) Calcium Level 8.9 mg/dL (8.5-10.1) 8.3 mg/dL (8.5-10.1) Total Bilirubin 0.4 mg/dL (0.2-1.0) Aspartate Amino Transf (AST/SGOT) 19 U/L (15-37) Alanine Aminotransferase (ALT/SGPT) 15 U/L (16-63) Alkaline Phosphatase 111 U/L (46-116) Total Protein 8.1 g/dL (6.4-8.2) Albumin 3.5 g/dL (3.4-5.0) Albumin/Globulin Ratio 0.8 (1.0-1.7) Segmented Neutrophils % 95 % (35-66) Band Neutrophils % 2 % (0-9) Lymphocytes % 3 % (24-48) Platelet Estimate Adequate (ADEQUATE) Test 12/05/21 13:18 White Blood Count 6.9 x10^3/uL (4.0-11.0) Red Blood Count 3.18 x10^6/uL (4.30-5.70) Hemoglobin 10.1 g/dL (13.0-17.5) Hematocrit 30.7 % (39.0-53.0) Mean Corpuscular Volume 96 fL (79-100) Mean Corpuscular Hemoglobin 32 pg (25-35) Mean Corpuscular Hemoglobin Concent 33 g/dL (31-37) Red Cell Distribution Width 14.6 % (11.5-14.5) Platelet Count 138 x10^3/uL (140-400) Neutrophils (%) (Auto) 72 % (31-73) Lymphocytes (%) (Auto) 17 % (24-48) Monocytes (%) (Auto) 8 % (0-9) Eosinophils (%) (Auto) 3 % (0-3) Basophils (%) (Auto) 0 % (0-3) Neutrophils # (Auto) 4.9 x10^3/uL (1.8-7.7) Lymphocytes # (Auto) 1.2 x10^3/uL (1.0-4.8) Monocytes # (Auto) 0.6 x10^3/uL (0.0-1.1) Eosinophils # (Auto) 0.2 x10^3/uL (0.0-0.7) Basophils # (Auto) 0.0 x10^3/uL (0.0-0.2) Laboratory Tests Test 12/04/21 17:10 12/05/21 13:13 12/05/21 13:18 White Blood Count 13.5 x10^3/uL (4.0-11.0) 6.9 x10^3/uL (4.0-11.0) Red Blood Count 3.78 x10^6/uL (4.30-5.70) 3.18 x10^6/uL (4.30-5.70) Hemoglobin 12.0 g/dL (13.0-17.5) 10.1 g/dL (13.0-17.5) Hematocrit 36.6 % (39.0-53.0) 30.7 % (39.0-53.0) Mean Corpuscular Volume 97 fL (79-100) 96 fL (79-100) Mean Corpuscular Hemoglobin 32 pg (25-35) 32 pg (25-35) Mean Corpuscular Hemoglobin Concent 33 g/dL (31-37) 33 g/dL (31-37) Red Cell Distribution Width 14.8 % (11.5-14.5) 14.6 % (11.5-14.5) Platelet Count 152 x10^3/uL (140-400) 138 x10^3/uL (140-400) Neutrophils (%) (Auto) 94 % (31-73) 72 % (31-73) Lymphocytes (%) (Auto) 4 % (24-48) 17 % (24-48) Monocytes (%) (Auto) 2 % (0-9) 8 % (0-9) Eosinophils (%) (Auto) 0 % (0-3) 3 % (0-3) Basophils (%) (Auto) 0 % (0-3) 0 % (0-3) Neutrophils # (Auto) 12.6 x10^3/uL (1.8-7.7) 4.9 x10^3/uL (1.8-7.7) Lymphocytes # (Auto) 0.5 x10^3/uL (1.0-4.8) 1.2 x10^3/uL (1.0-4.8) Monocytes # (Auto) 0.2 x10^3/uL (0.0-1.1) 0.6 x10^3/uL (0.0-1.1) Eosinophils # (Auto) 0.0 x10^3/uL (0.0-0.7) 0.2 x10^3/uL (0.0-0.7) Basophils # (Auto) 0.1 x10^3/uL (0.0-0.2) 0.0 x10^3/uL (0.0-0.2) Segmented Neutrophils % 95 % (35-66) Band Neutrophils % 2 % (0-9) Lymphocytes % 3 % (24-48) Platelet Estimate Adequate (ADEQUATE) Sodium Level 140 mmol/L (136-145) Potassium Level 3.3 mmol/L (3.5-5.1) Chloride Level 107 mmol/L (98-107) Carbon Dioxide Level 28 mmol/L (21-32) Anion Gap 5 (6-14) Blood Urea Nitrogen 10 mg/dL (8-26) Creatinine 0.9 mg/dL (0.7-1.3) Estimated GFR (Cockcroft-Gault) 103.1 Glucose Level 97 mg/dL (70-99) Calcium Level 8.3 mg/dL (8.5-10.1) Brief Hospital Course Mr. Sahu is a 61 old male who presented with right ileofemoral occlusion. He was seen by vascular surgery, s/p right ileofemoral thromboendarterectomy. From vascular standpoint he may discharge home following surgery. Spoke with Dr. 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 He may resume aspirin and Plavix and follow-up with Dr. Martinez on outpatient basis. Discharge Information Condition at Discharge: Improved Disposition/Orders: D/C to Home Scheduled Amlodipine Besylate (Amlodipine Besylate) 10 Mg Tablet, 10 MG PO DAILY, (Reported) Entered as Reported by: CELESTINA RODRIGUES on 11/22/17915 Last Taken: Unknown Dose on 12/04/21699 Last Action: Last Taken Edited on 12/04/21902 by ADRIENNE MCKENZIE Aspirin (Aspirin) 81 Mg Tab.chew, 1 TAB PO DAILY for ., #30 Ref 3 (Reported) Entered as Reported by: ADRIENNE MCKENZIE on 12/04/21902 Last Taken: Unknown Dose on 12/04/21699 Last Action: New Order on 12/04/21902 by ADRIENNE MCKENZIE Gabapentin (Gabapentin ) 300 Mg Capsule, 300 MG PO BID for NEUROGENIC PAIN, (Reported) Entered as Reported by: MIRA CROOK on 05/23/21 1227 Last Taken: Unknown Dose on 12/04/21 0700 Last Action: Last Taken Edited on 12/04/21902 by ADRIENNE MCKENZIE Metoprolol Succinate (Metoprolol Succinate ( Xl )) 25 Mg Tab.er.24h, 25 MG PO DAILY for FOR HYPERTENSION, #30 Ref 0 (Reported) Entered as Reported by: HEAVEN OMER on 11/11/17 1300 Last Taken: Unknown Dose on 12/04/21 0700 Last Action: Last Taken Edited on 12/04/21902 by ADRIENNE MCKENZIE Montelukast Sodium (Singulair Tablet ) 10 Mg Tablet, 10 MG PO HS for FOR ASTHMA, Ref 0 (Reported) Entered as Reported by: KENROY ALEX on 11/27/21 1804 Last Taken: Unknown Dose on 12/03/21 Last Action: Last Taken Edited on 12/04/21902 by ADRIENNE MCKENZIE Omeprazole (Omeprazole) 40 Mg Capsule.dr, 40 MG PO DAILY for gerd, (Reported) Entered as Reported by: MIRA CROOK on 05/23/21 1227 Last Taken: Unknown Dose on 12/04/21 07 Last Action: Last Taken Edited on 12/04/21902 by ADRIENNE MCKENZIE Scheduled PRN Albuterol Sulfate (Proair Hfa Inhaler) 8.5 Gm Hfa.aer.ad, 2 PUFF IH PRN Q4-6HRS PRN for wheezing for 21 Days, #1 Ref 0 Prescribed by: SAIDA GAN D.O. on 08/12/19 0535 Last Taken: Unknown Dose on 11/24/21 Last Action: Last Taken Edited on 12/04/21902 by ADRIENNE MCKENZIE Alprazolam (Xanax) 0.25 Mg Tablet, 1 MG PO PRN Q6HRS PRN for ANXIETY / AGITATION, Ref 0 (Reported) Entered as Reported by: HEAVEN OMER on 11/11/17 1300 Last Taken: Unknown Dose on 12/02/21 Last Action: Last Taken Edited on 12/04/21902 by ADRIENNE MCKENZIE Hydrocodone Bit/Acetaminophen (Hydrocodone-Apap 5-325 ) 1 Tab Tablet, 1 TAB PO PRN Q4HRS PRN for PAIN for 3 Days, #10 Prescribed by: HE OAKLEY MD on 11/28/21 1023 Last Taken: Unknown Dose on 12/02/21 Last Action: Last Taken Edited on 12/04/21 0903 by ADRIENNE MCKENZIE Discontinued Medications Hydrocodone/Acetaminophen (Hydrocodone-Acetamin 5-325 mg) 1 Each Tablet, 1-2 EACH PO Q4-6HRS PRN for PAIN for 5 Days, #20 Ref 0 Prescribed by: HEAVEN ENRIQUEZ on 05/26/21 1001 Justicifation of Admission Dx: Justifications for Admission: Justification of Admission Dx: N/A LOGAN WARREN MD Dec 05, 2021 14:35
[2021-12-05] MEDS ORDERED: CLOP75TA PO (14:37)
[2021-12-05] MEDS ORDERED: POTASSIUM CHLORIDE 20 MEQ TABLET.ER. PO ONE (15:00)
[2021-12-05] MEDS ORDERED: OXYC1TAB15 PO (16:36)
--- NOTE | 2021-12-05 17:35 | NUR ---
Discharge Note: CANDY CERVANTES [address] [place] [address] Discharge instructions and discharge home medications reviewed with Patient and a copy given. All questions have been answered and understanding verbalized. The following instructions and handouts were given: discharge instructions, med list, post endarterectomy education, pvd education, follow ups Discontinued lines and drains: Peripheral IV intact. Patient discharged to Home or Self Care with Friend via Wheelchair at 1735.
== END 2021-12-05 17:35 | disposition home or self-care (01) | DRG 271 ==
LOC: SURG 08:35 → EDSTATUS 11:00 → 6 SOUTH 16:49
PROVIDERS: ADMIT Surgery Vascular Surgery; ATTEND Surgery Vascular Surgery
PROC: 047H3DZ Dilation of Right External Iliac Artery with Intraluminal Device, Percutaneous Approach (ICD-10-PCS; 2021-12-04)
PROC: 04CK0ZZ Extirpation of Matter from Right Femoral Artery, Open Approach (ICD-10-PCS; 2021-12-04)
PROC: B41D1ZZ Fluoroscopy of Aorta and Bilateral Lower Extremity Arteries using Low Osmolar Contrast (ICD-10-PCS; 2021-12-04)
PROC: 047C3DZ Dilation of Right Common Iliac Artery with Intraluminal Device, Percutaneous Approach (ICD-10-PCS; principal; 2021-12-04 11:00)
PROC: 04CH0ZZ Extirpation of Matter from Right External Iliac Artery, Open Approach (ICD-10-PCS; 2021-12-04 11:00)
DX: I74.3 Embolism and thrombosis of arteries of the lower extremities (principal); I74.5 Embolism and thrombosis of iliac artery; C85.10 Unspecified B-cell lymphoma, unspecified site; I73.9 Peripheral vascular disease, unspecified; F17.210 Nicotine dependence, cigarettes, uncomplicated; I10 Essential (primary) hypertension; Z20.822 Contact with and (suspected) exposure to COVID-19; I70.8 Atherosclerosis of other arteries; J45.909 Unspecified asthma, uncomplicated; K21.9 Gastro-esophageal reflux disease without esophagitis; Z79.02 Long term (current) use of antithrombotics/antiplatelets; Z79.82 Long term (current) use of aspirin; Z79.899 Other long term (current) drug therapy; Z71.6 Tobacco abuse counseling; F41.9 Anxiety disorder, unspecified
CPT/HCPCS: 36200; 36415; 37221; 75625; 75710; 76937; 80048; 80053; 85007; 85025; A4314; A4364; A4452; A4930; A6258; A6402; A6443; C1757; C1769; C1892; C1894; J0690; J0780; J1100; J1170; J1644; J2270; J2370; J2405; J2704; J2720; J3010; J3490; J7030; J7040; J7120; Q9967; G0378

== ENCOUNTER 2021-12-28 18:20 | Emergency (ER) | payer MEDICAID, OTHER ==
[~2021-12-28] VITALS: Ht 180.3 cm; Wt 64.5 kg
[~2021-12-28 18:20] MED LIST changes: +ASPI-630 PO; +CLOP75TA PO; -HEPARIN SODIUM 5,000 UNIT in IV NORMAL SALINE 500ML BAG 500 ML IRR ONE; +OXYC1TAB15 PO; -PROCHLORPERAZINE 10 MG/2 ML VIAL. IVP PRN; -fentaNYL PF VIAL 100 MCG/2 ML VIAL IVP PRN
[2021-12-28] MEDS ORDERED: IPRATRPIUM/ALBUTEROL 0.5/2.5MG 3 ML NEBU. NEB ONE (19:45)
[2021-12-28 19:52] LABS: BASO % 1 % (0-3); EOS # 0.1 x10^3/uL (0.0-0.7); EOS % 3 % (0-3); HEMATOCRIT 30.8 % (39.0-53.0); HEMOGLOBIN 10.3 g/dL (13.0-17.5); LYMPH # 1.3 x10^3/uL (1.0-4.8); LYMPH % 31 % (24-48); MEAN CORPUSCULAR HEMOGLOBIN 32 pg (25-35); MEAN CORPUSCULAR HGB CONC 33 g/dL (31-37); MEAN CORPUSCULAR VOLUME 95 fL (79-100); MONO # 0.6 x10^3/uL (0.0-1.1); MONO % 15 % (0-9); NEUT % 50 % (31-73); PLATELET COUNT 184 x10^3/uL (140-400); RED BLOOD COUNT 3.25 x10^6/uL (4.30-5.70); RED CELL DISTRIBUTION WIDTH 15.2 % (11.5-14.5); WHITE BLOOD COUNT 4.1 x10^3/uL (4.0-11.0)
[2021-12-28 19:53] LABS: CALCIUM 8.8 mg/dL (8.5-10.1); CREATININE 1.2 mg/dL (0.7-1.3); POTASSIUM 3.9 mmol/L (3.5-5.1)
[2021-12-28 19:59] LABS: ALBUMIN 3.2 g/dL (3.4-5.0); ALBUMIN/GLOBULIN RATIO 0.8 (1.0-1.7); TOTAL BILIRUBIN 0.3 mg/dL (0.2-1.0); TOTAL PROTEIN 7.2 g/dL (6.4-8.2)
[2021-12-28] MEDS ORDERED: GABAPENTIN 300 MG CAPSULE. PO ONE (20:00)
[2021-12-28] MEDS ORDERED: MORPHINE SULFATE 4 MG/ML INJ. IVP ONE (20:00)
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
[2021-12-28 21:39] VITALS: BP 116/60
[2021-12-28] MEDS ORDERED: GABA300C18 PO (22:20)
--- NOTE | 2021-12-28 22:24 | RAD ---
Exam: Chest one view INDICATION: Shortness of breath, pain TECHNIQUE: Frontal view of the chest Comparisons: 08/12/2019 FINDINGS: Right anterior chest wall port with catheter tip at the SVC. The cardiomediastinal silhouette and pulmonary vessels are within normal limits. The lung and pleural spaces are clear. IMPRESSION: No acute cardiopulmonary process. Electronically signed by: Daily Fenton MD (12/28/2021 10:22 PM) SUMAN
--- NOTE | 2021-12-29 15:08 | EKG ---
[facility] [address] [place] [address] Test Date: 2021-12-28 Test Time: 19:58:02 Pat Name: CANDY CERVANTES Department: Room: Gender: M Stogy Maker: : [id number] Requested By: HILDA TIWARI Order Number: [id number] Reading MD: Jose Knutson MD Measurements Intervals [place] Rate: 68 P: 90 [place]: 228 QRS: -73 QRSD: 96 T: 56 QT: 400 QTc: 426 Interpretive Statements SR 1ST DEGREE AVB INFERIOR INFARCT - LIKELY OLD Electronically Signed On 12-30-2021 11:15:01 CDT by Jose Knutson MD
== END 2021-12-28 22:30 | disposition home or self-care (01) ==
LOC: ER 18:20
DX: J44.9 Chronic obstructive pulmonary disease, unspecified (principal); M79.674 Pain in right toe(s); G62.9 Polyneuropathy, unspecified; I10 Essential (primary) hypertension; F17.200 Nicotine dependence, unspecified, uncomplicated
CPT/HCPCS: 36415; 71045; 80053; 83880; 84484; 85025; 93005; 94640; 96374; 99285; J2270